=== PATIENT | female | born 1960 | race Two or more races ===

== ENCOUNTER 2018-01-03 17:38 | Inpatient (IN) | payer OTHER ==
[2018-01-03] MEDS ORDERED: morphine CARPU-JECT 4 MG/1 ML DISP.SYRIN IVPUSH ONE ×2 (17:49→18:36)
[2018-01-03] MEDS ORDERED: ALBUTEROL SO4 2.5/IPRATROPIUM 0.5 INH SOL 3 ML VIAL.NEB. NEB ONE ×2 (17:50→17:53)
[2018-01-03] MEDS ORDERED: morphine SULFATE 4 MG/ML VIAL ONE ×2 (17:53→18:38)
[2018-01-03 17:54] VITALS: BMI 26.2
[2018-01-03] MEDS ORDERED: ONDANSETRON 4 MG/2 ML VIAL IVPUSH ONE (17:55)
[2018-01-03] MEDS ORDERED: ONDANSETRON 4 MG/2 ML VIAL ONE (17:58)
--- NOTE | 2018-01-03 18:12 | PDOC ---
History of Present Illness - General History Source: Patient, Family Exam Limitations: No Limitations - History of Present Illness Initial Comments: 01/03/18 18:34 The patient is a 57-year-old female with past medical history significant for Endometrial malignant neoplasm (diagnosed 8 years ago, previous radiation esophagitis, metastasized to the lung (bronchial mass), scalp and brain), hx of DVT and PE (on Lovenox x2 daily) presents to the emergency department via EMS accompanied by family with worsening cough and chest pain. Per patient, the chest pain is located to the mid-anterior chest thats exacerbated with coughing , movement, and with deep breathing. Per daughter, the patient experienced mild relief with O2 and with 50 micrograms of IV Fentanyl, that EMS gave. The patient reports taking Oxycodone at home earlier today. Denies hemoptysis, productive cough, new leg swelling. The patient reports following up with pain management and was started on multiple forms of narcotic. Allergies: Penicillins Surgical history: JEOVANNY, right carpal tunnel release, tenosynivitis (by Dr. 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, mets to lung and brain) Cardiac Disorders: Yes (tachycardia) CVA: No COPD: No CHF: No Dementia: No Diabetes: No GI Disorders: Yes (GERD) Disorders: No HTN: No Hypercholesterolemia: No Liver Disease: No Seizures: No Thyroid Disease: No - Surgical History Abdominal Surgery: Yes (JEOVANNY) Appendectomy: No Cardiac Surgery: No Cholecystectomy: No Lung Surgery: No Neurologic Surgery: No - Suicide/Smoking/Psychosocial Hx Smoking History: Never smoked Have you smoked in the past 12 months: No Information on smoking cessation initiated: No Hx Alcohol Use: No Drug/Substance Use Hx: No Substance Use Type: None Hx Substance Use Treatment: No <Roma Watkins - Last Filed: 01/03/18 21:22> - Past Medical History Allergies/Adverse Reactions: Allergies Allergy/AdvReac Type Severity Reaction Status Date / Time Penicillins Allergy Rash Verified 01/03/18 17:54 Home Medications: Ambulatory Orders Cholecalciferol (Vitamin D3) [Vitamin D] 1,000 unit PO DAILY 12/30/13 Thiamine HCl [Vitamin B-1] 500 mg PO DAILY 12/30/13 Enoxaparin [Lovenox -] 60 mg SQ DAILY 12/22/17 Letrozole [Femara -] 2.5 mg PO DAILY 12/22/17 Pantoprazole Sodium [Protonix -] 20 mg PO DAILY 12/22/17 Benzonatate 200 mg PO TID PRN 01/03/18 Oxycodone Myristate [Xtampza ER] 9 mg PO BID 01/03/18 Review of Systems - Review of Systems Able to Perform ROS?: Yes Comments:: 01/03/18 18:37 GENERAL/CONSTITUTIONAL: No fever or chills. No weakness. HEAD, EYES, EARS, NOSE AND THROAT: No change in vision. No ear pain or discharge. No sore throat. CARDIOVASCULAR: (+) chest pain No shortness of breath. RESPIRATORY: (+) Worsening cough. No wheezing, or hemoptysis. GASTROINTESTINAL: No nausea, vomiting, diarrhea or constipation. GENITOURINARY: No dysuria, frequency, or change in urination. MUSCULOSKELETAL: No joint or muscle swelling or pain. No neck or back pain. SKIN: No rash NEUROLOGIC: No headache, vertigo, loss of consciousness, or change in strength/ sensation. ENDOCRINE: No increased thirst. No abnormal weight change. HEMATOLOGIC/LYMPHATIC: No anemia, easy bleeding, or history of blood clots. ALLERGIC/IMMUNOLOGIC: No hives or skin allergy. <Kandy Cornelius - Last Filed: 01/03/18 18:37> *Physical Exam - Vital Signs Last Vital Signs Temp Pulse Resp BP Pulse Ox 120 H 26 H 106/69 92 L 01/03/18 17:40 01/03/18 17:40 01/03/18 17:40 01/03/18 17:40 <Kandy Cornelius - Last Filed: 01/03/18 18:37> - Vital Signs Last Vital Signs Temp Pulse Resp BP Pulse Ox 120 H 26 H 106/69 92 L 01/03/18 17:40 01/03/18 17:40 01/03/18 17:40 01/03/18 17:40 <Roma Watkins - Last Filed: 01/03/18 21:22> Heart Score/ECG Review #2 ECG reviewed & interpreted by me at: 18:00 General ECG Interpretation: Sinus Rhythm, Normal Intervals, No acute ischemic changes Compared to previous ECG there are: Other (sinus tachycardia 135) <Roma Watkins - Last Filed: 01/03/18 21:22> ED Treatment Course - Medications Given in the ED: ED Medications Discontinued Medications Generic Name Dose Route Start Last Admin Trade Name Freq PRN Reason Stop Dose Admin Albuterol/Ipratropium 1 amp 01/03/18 17:50 01/03/18 18:05 Duoneb - NEB 01/03/18 17:51 1 amp ONCE ONE Administration Morphine Sulfate 4 mg 01/03/18 17:49 01/03/18 18:05 Morphine Injection - IVPUSH 01/03/18 17:50 4 mg ONCE ONE Administration Ondansetron HCl 4 mg 01/03/18 17:55 01/03/18 18:05 Zofran Injection IVPUSH 01/03/18 17:56 4 mg ONCE ONE Administration <Kandy Cornelius - Last Filed: 01/03/18 18:37> - LABORATORY CBC & Chemistry Diagram: 01/03/18 18:30 01/03/18 18:30 - Medications Given in the ED: ED Medications Discontinued Medications Generic Name Dose Route Start Last Admin Trade Name Freq PRN Reason Stop Dose Admin Albuterol/Ipratropium 1 amp 01/03/18 17:50 01/03/18 18:05 Duoneb - NEB 01/03/18 17:51 1 amp ONCE ONE Administration Morphine Sulfate 4 mg 01/03/18 17:49 01/03/18 18:05 Morphine Injection - IVPUSH 01/03/18 17:50 4 mg ONCE ONE Administration Ondansetron HCl 4 mg 01/03/18 17:55 01/03/18 18:05 Zofran Injection IVPUSH 01/03/18 17:56 4 mg ONCE ONE Administration <Roma Watkins - Last Filed: 01/03/18 21:22> Medical Decision Making - Medical Decision Making 01/03/18 18:10 57 yo F with h/o metastatic endometrial ca, (lung, bronchial/ mediastinal, scalp and head mets) pe/ dvt her with worsening cough and chest pain. pain worse with cough and deep breath. took oxy no relief at home. given fenatnyl by EMS no relief. on lovenox twice dialy for pe. on exam pt awake alert lungs clear bilaterlly poor breath sounds at bases. heart tachycardic. ext wwp. differential: postobstructive pna, pain due to known mets, worsening pe. pericardial effusion. plan bedside echo, cxr labs cultures. may require repeat cta to evaluate progression of known PE. morphine for pain control. duonebs to reliev bronchoconstriction and mucous. 01/03/18 19:35 focused ED ultrasound TTE, indication tte, h/o radiation r/o pericardial effusion four views of heart obtained, ( PSL< PSS, apical and subxiphoid) trace pericardial effusion noted. contractility preserved. no rv dilation or enlargement. mild left atrial enlargment. impressions: normal TTE, small pericardial effusion, no tamponade 01/03/18 20:07 pt with mass, possible post obstructive pna on cta, no obvious pe, possible radiation changes. will treat for post obbstructive pna, vanco and cefepime. pt states not true allergy to penecillin. has had penecillin with no reaction in the past. will admit to hospitalist. 01/03/18 20:40 <Roma Watkins - Last Filed: 01/03/18 21:22> *DC/Admit/Observation/Transfer <Kandy Cornelius - Last Filed: 01/03/18 18:37> - Discharge Dispostion Decision to Admit order: Yes <Roma Watkins - Last Filed: 01/03/18 21:22> Diagnosis at time of Disposition: Pneumonia, Endometrial malignant neoplasm - Referrals Referrals: Sheila Sen MD [Primary Care Provider] -
[2018-01-03 18:52] LABS: BASO % 0.1 % (0-2.0); EOS % 0.1 % (0-4.5); HEMATOCRIT 30.1 % (32.4-45.2); HEMOGLOBIN 10.2 GM/dL (10.7-15.3); LYMPH % 9.6 % (8-40); MCHC 33.8 g/dl (32.0-36.0); MEAN CELL VOLUME 94.6 fl (80-96); MEAN PLT VOLUME 7.9 fl (7.5-11.1); MONO % 6.8 % (3.8-10.2); NEUT % 83.4 % (42.8-82.8); PLATELET COUNT 170 K/MM3 (134-434); RBC 3.18 M/mm3 (3.60-5.2); RDW 18.3 % (11.6-15.6); WHITE BLOOD COUNT 8.6 K/mm3 (4.0-10.0)
[2018-01-03 18:56] LABS: INR 1.39 (0.83-1.09); PROTHROMBIN TIME (PATIENT) 16.4 SEC (9.7-13.0)
[2018-01-03 18:59] LABS: ACTIVATED PTT 30.7 SECONDS (25.2-36.5)
[2018-01-03 19:06] LABS: VENOUS PC02 43.3 mmHg (38-52); VENOUS PH 7.38 (7.32-7.42); VENOUS PO2 26.7 mmHg (28-48)
[2018-01-03 19:11] LABS: ALBUMIN 2.5 g/dl (3.4-5.0); ALK PHOS 93 U/L (45-117); ANION GAP 10 MMOL/L (8-16); BILIRUBIN,TOTAL 0.3 mg/dL (0.2-1); BLOOD UREA NITROGEN 4 mg/dL (7-18); CALCIUM 8.5 mg/dL (8.5-10.1); CHLORIDE 102 mmol/L (98-107); CO2 24 mmol/L (21-32); CREATININE 0.6 mg/dL (0.55-1.3); GLUCOSE,RANDOM 139 mg/dL (74-106); POTASSIUM 3.9 mmol/L (3.5-5.1); SGOT/AST 20 U/L (15-37); SGPT/ALT 22 U/L (13-61); SODIUM 136 mmol/L (136-145); TOT PROT 7.3 g/dl (6.4-8.2)
[2018-01-03] MEDS ORDERED: SODIUM CHLORIDE 0.9% 1000 ML INFUS.BAG IV ONE (19:25)
[2018-01-03] MEDS ORDERED: KETOROLAC TROMETHAMINE 15 MG/ML VIAL IVPUSH ONE (19:26)
[2018-01-03] MEDS ORDERED: VANCOMYCIN 1 GRAM (PRE-DOCKED) 1,000 MG/250 ML BAG IVPB ONE (20:05)
[2018-01-03] MEDS ORDERED: CEFEPIME HCL/D5W 1 GM/50 ML BAG IVPB ONE (20:06)
[2018-01-03] MEDS ORDERED: KETOROLAC TROMETHAMINE 15 MG/ML VIAL ONE (20:17)
--- NOTE | 2018-01-03 20:59 | PN ---
Teaching Attending Note Name of Resident: John Beebe ATTENDING PHYSICIAN STATEMENT I saw and evaluated the patient. I reviewed the resident's note and discussed the case with the resident. I agree with the resident's findings and plan as documented. SUBJECTIVE: OBJECTIVE: ASSESSMENT AND PLAN: this is a 57 y/o female patient with hx of cervical cancer with mets, s/p 6 cycles of chemo, radiation therapy to the mediastinum, scalp and brain presented with worsening shortness of breath and chest pain that is pleuritic in nature, patient was noted to have pericardial effusion on the CT scan plan: pericardial effusion: - not in tamponade physiology at this time - will consult Dr. Mendoza - Echocardiogram - avoid diuresis of the patient - keep the patient well hydrated SOB: worsening CT scan possible pneumonia vs advancement in the cancer - start the patient on broad spectrum antibiotics - Vancomycin and cefepime adjust to the renal dose - pulmonary evaulatioon blood culutes - Hx of DVT/PE - continue with enoxaparin q12hrs renal and weight based dose Pain Management hydomorphone 2mg po q6hrs morphine 2mg IVP prn q4hrs ' malignancy c/w home medication
[2018-01-03] MEDS: ENOXAPARIN NA (PORCINE) 60 MG/0.6 ML DISP.SYRIN SQ SCH ×2 (21:07→21:30)
[2018-01-03] MEDS ORDERED: PATIENT'S OWN MEDICATION (NON-FORMULARY) (Benzonatate [Benzonatate] 100 MG) PO PRN (21:20)
[2018-01-03] MEDS ORDERED: guaiFENesin/CODEINE 10 ML UNIT-DOSE CUPS PO PRN (21:26)
[2018-01-03] MEDS ORDERED: morphine CARPU-JECT 4 MG/1 ML DISP.SYRIN IVPUSH PRN (21:28)
[2018-01-03] MEDS ORDERED: ACETAMINOPHEN INJECTION 100 ML IVPB ONE (21:35)
--- NOTE | 2018-01-03 21:38 | CON.CARD ---
Cardiology Consult (text) - Consultation Consultation Note: Cardiology Consult Dictated IMP: Metastatic endometrial Ca: lung, brain Chest pain secondary to pericardial effusion, suspected malignant H/o DVT REC: 1. Prelim bedside echo without tamponade, to repeat echo in 24-48 hours 2. Telemetry 3. IV fluids 4. Analgesia 5. AC with Lovenox for DVT 6. Supplimental O2 7. ID consulted for abx guidance: consolidation on CT, possible post-obstx PNA Thank you. Will Follow.
[2018-01-03] MEDS ORDERED: ACETAMINOPHEN 1000 MG/100 ML VIAL (NON FORMULARY) IVPB ONE (21:56)
[2018-01-03] MEDS: guaiFENesin/CODEINE 5 ML UNIT-DOSE CUPS PO PRN (22:32)
[2018-01-03] MEDS: LACTOBACILLUS ACIDOPHILUS 1 TABLET PO SCH (22:32)
[2018-01-03] MEDS: SODIUM CHLORIDE 1,000 ML IV SCH (22:36)
--- NOTE | 2018-01-03 23:03 | HP ---
CHIEF COMPLAINT: Chest pain PCP: HISTORY OF PRESENT ILLNESS: Pt is a 57 y/o F with extensive medical history significant for endometrial CA with mets who presents to ED with complaint of CP. CP is mid-chest, exacerbated by lying back and coughing and is severe. Pt received diagnosis of endometrial CA 8 years ago after a leukocytoclastic rash prompted investigation. Pt underwent surgery with extensive lymph node resection. At that time, she was told XRT was not necessarily indicated, but elected to undergo 3 rounds of transvaginal XRT to be sure. In May, she developed an intractable cough, which led to further investigation. Unfortunately, extensive metastatic disease was discovered including lung, brain , and scalp lesions. She has undergone 6 rounds of chemotherapy and has suffered DVT and PE. She has also undergone brain XRT. She also has known bronchial narrowing of the RUL. She has had intractable pain and intractable coughing throughout this process necessitating the use of numerous pain medications including oxycodone and THC. She denies recent history of fever, sick contacts or travel. Pt states she is unable to lay herself flat due to coughing productive of clear phlegm. ER course was notable for: (1) 101.3F, HR 120, BP 92/55, RR 30, 97% on 2L (2) Hb 10.2, Hct 30, INR 1.30, VBG 7.38/43.3/26.7/25.1 (3) morphine 8mg, zofran 4mg, toradol 15mg vanco, cefepime, lovenox, ofirmev Recent Travel: denies PAST MEDICAL HISTORY: as above PAST SURGICAL HISTORY: as above Social History: Smoking: Alcohol: Drugs: Family History: Allergies Penicillins Allergy (Verified 01/03/18 17:54) Rash PT STATED SHE WAS TOLD SHE WAS ALLERGIC TO PENICILLIN BUT WAS GIVEN PENICILLIN ONCE 15 YEARS AGO AND TOLERATED IT. HOME MEDICATIONS: Home Medications Medication Instructions Recorded Cholecalciferol (Vitamin D3) 1,000 unit PO DAILY 12/30/13 [Vitamin D] Thiamine HCl [Vitamin B-1] 500 mg PO DAILY 12/30/13 Enoxaparin [Lovenox -] 60 mg SQ DAILY 12/22/17 Letrozole [Femara -] 2.5 mg PO DAILY 12/22/17 Pantoprazole Sodium [Protonix -] 20 mg PO DAILY 12/22/17 Benzonatate 200 mg PO TID PRN 01/03/18 Oxycodone Myristate [Xtampza ER] 9 mg PO BID 01/03/18 REVIEW OF SYSTEMS CONSTITUTIONAL: generalized weakness, malaise Absent: fever, chills, diaphoresis, , loss of appetite, weight change HEENT: Absent: rhinorrhea, nasal congestion, throat pain, throat swelling, difficulty swallowing, mouth swelling, ear pain, eye pain, visual changes CARDIOVASCULAR: chest pain Absent: , syncope, palpitations, irregular heart rate, lightheadedness, peripheral edema RESPIRATORY: cough Absent: , shortness of breath, dyspnea with exertion, orthopnea, wheezing, stridor, hemoptysis GASTROINTESTINAL: Absent: abdominal pain, abdominal distension, nausea, vomiting, diarrhea, constipation, melena, hematochezia GENITOURINARY: Absent: dysuria, frequency, urgency, hesitancy, hematuria, flank pain, genital pain MUSCULOSKELETAL: Absent: myalgia, arthralgia, joint swelling, back pain, neck pain SKIN: Absent: rash, itching, pallor HEMATOLOGIC/IMMUNOLOGIC: Absent: easy bleeding, easy bruising, lymphadenopathy, frequent infections ENDOCRINE: Absent: unexplained weight gain, unexplained weight loss, heat intolerance, cold intolerance NEUROLOGIC: Absent: headache, focal weakness or paresthesias, dizziness, unsteady gait, seizure, mental status changes, bladder or bowel incontinence PSYCHIATRIC: Absent: anxiety, depression, suicidal or homicidal ideation, hallucinations. PHYSICAL EXAMINATION Vital Signs - 24 hr 01/03/18 01/03/18 01/03/18 17:40 20:07 20:54 Temperature 101.3 F H Pulse Rate 120 H 112 H Pulse Rate [ 111 H Left] Respiratory 26 H 30 H Rate Blood Pressure 106/69 Blood Pressure 113/61 [Right Arm] O2 Sat by Pulse 92 L 97 Oximetry (%) Gen: Anxious appearing sitting upright in bed. HEENT: NCAT, hair loss 2/2 chemo, moist membranes Neck: supple, no jvd noted Cardio: rrr, distant s1s2, no mrg appreciated Pulm: clear lung bases, scattered crackles in upper lobes Abd: nondistended, soft, nontender, no masses appreciated Laboratory Results - last 24 hr 01/03/18 01/03/18 01/03/18 18:30 18:30 18:30 WBC 8.6 RBC 3.18 L Hgb 10.2 L Hct 30.1 L D MCV 94.6 MCH 32.0 D MCHC 33.8 RDW 18.3 H Plt Count 170 D MPV 7.9 Absolute Neuts (auto) 7.2 Neutrophils % 83.4 H D Lymphocytes % 9.6 D Monocytes % 6.8 Eosinophils % 0.1 D Basophils % 0.1 Nucleated RBC % 0 PT with INR 16.40 H INR 1.39 H PTT (Actin FS) 30.7 VBG pH POC VBG pCO2 POC VBG pO2 Mixed VBG HCO3 Sodium 136 Potassium 3.9 Chloride 102 Carbon Dioxide 24 Anion Gap 10 BUN 4 L Creatinine 0.6 Creat Clearance w eGFR > 60 Random Glucose 139 H Lactic Acid Calcium 8.5 Total Bilirubin 0.3 AST 20 ALT 22 Alkaline Phosphatase 93 Troponin I < 0.02 Total Protein 7.3 Albumin 2.5 L 01/03/18 01/03/18 01/03/18 18:45 18:45 18:45 WBC RBC Hgb Hct MCV MCH MCHC RDW Plt Count MPV Absolute Neuts (auto) Neutrophils % Lymphocytes % Monocytes % Eosinophils % Basophils % Nucleated RBC % PT with INR INR PTT (Actin FS) 31.3 VBG pH 7.38 POC VBG pCO2 43.3 POC VBG pO2 26.7 L Mixed VBG HCO3 25.1 H Sodium Potassium Chloride Carbon Dioxide Anion Gap BUN Creatinine Creat Clearance w eGFR Random Glucose Lactic Acid 1.6 Calcium Total Bilirubin AST ALT Alkaline Phosphatase Troponin I Total Protein Albumin ASSESSMENT/PLAN: This is a pleasant 57 y/o lady with unfortunate history of metastatic endometrial CA involving lung, brain, and scalp. She was brought to the hospital for severe chest pain. She is admitted for intractable pain and for workup of PNA and pericardial effusion. #PNA -febrile, cough, no leukocytosis, no sick contacts, no recent travel -STEVIE PNA noted on CXR and CT -received Vanc, Cefepime in ED -O2 -ID consulted f/u recs -Pulm consulted f/u recs #Pericardial effusion -noted on chest CT -bedside echo performed by ED and by cardio. No tamponade noted -Cardio on board #DVT -known from hist -c/w home lovenox 60 bid #Intractable cough -c/w home tessilon pearls -robitussin a/c #GERD -protonix #Malignancy -c/w home letrazole #Intractable pain -liberal pain medication -dilaudid 2mg q6h Prn -morphine IV 4mg q4h PRN #FEN -NS 83 -lytes wnl -reg diet #PPx -on Lovenox #Dispo -Tele John Beebe MD PGY-2 IM Visit type - Emergency Visit Emergency Visit: Yes ED Registration Date: 01/03/18 Care time: The patient presented to the Emergency Department on the above date and was hospitalized for further evaluation of their emergent condition. - New Patient This patient is new to me today: Yes Date on this admission: 01/03/18 - Critical Care Critical Care patient: No
[2018-01-04] MEDS ORDERED: morphine SULFATE 4 MG/ML VIAL IVPUSH PRN (01:21)
[2018-01-04] MEDS ORDERED: morphine SULFATE 4 MG/ML VIAL ONE (01:33)
[2018-01-04 07:37] LABS: BASO % 0.1 % (0-2.0); EOS % 0.6 % (0-4.5); HEMATOCRIT 26.1 % (32.4-45.2); LYMPH % 10.1 % (8-40); MCH 32.6 pg (25.7-33.7); MCHC 34.4 g/dl (32.0-36.0); MEAN CELL VOLUME 94.9 fl (80-96); MEAN PLT VOLUME 7.8 fl (7.5-11.1); MONO % 11.9 % (3.8-10.2); NEUT % 77.3 % (42.8-82.8); PLATELET COUNT 147 K/MM3 (134-434); RBC 2.75 M/mm3 (3.60-5.2); WHITE BLOOD COUNT 8.7 K/mm3 (4.0-10.0)
[2018-01-04] MEDS: HYDROmorphone HCL 2 MG TABLET PO PRN ×3 (08:29→21:17)
[2018-01-04 08:41] LABS: ALK PHOS 84 U/L (45-117); ANION GAP 9 MMOL/L (8-16); BILIRUBIN,TOTAL 0.3 mg/dL (0.2-1); BLOOD UREA NITROGEN 6 mg/dL (7-18); CALCIUM 8.5 mg/dL (8.5-10.1); CHLORIDE 106 mmol/L (98-107); CO2 23 mmol/L (21-32); CREATININE 0.5 mg/dL (0.55-1.3); GLUCOSE,RANDOM 101 mg/dL (74-106); MAGNESIUM 1.8 mg/dL (1.8-2.4); POTASSIUM 3.9 mmol/L (3.5-5.1); SGOT/AST 15 U/L (15-37); SGPT/ALT 17 U/L (13-61); SODIUM 138 mmol/L (136-145); TOT PROT 6.1 g/dl (6.4-8.2)
[2018-01-04] MEDS: PANTOPRAZOLE 20 MG TABLET (FP) PO SCH (09:12)
[2018-01-04] MEDS: guaiFENesin/CODEINE 5 ML UNIT-DOSE CUPS PO PRN ×2 (09:12→15:07)
[2018-01-04] MEDS: LACTOBACILLUS ACIDOPHILUS 1 TABLET PO SCH (09:12)
[2018-01-04] MEDS ORDERED: PT OWN MED DRAWER 7, Y5N ONE ×2 (09:15→09:16)
--- NOTE | 2018-01-04 09:34 | PN ---
Progress Note, Physician Chief Complaint: appears more comfortable. No chest pain or SOB Denies palpitations. - Current Medication List Current Medications: Active Medications Enoxaparin Sodium (Lovenox -) 60 mg SQ DAILY [facility] Guaifenesin/Codeine Phosphate (Robitussin Ac -) 10 ml PO Q8H PRN PRN Reason: COUGH Last Admin: 01/04/18 09:12 Dose: 10 ml Hydromorphone HCl (Dilaudid -) 2 mg PO Q6H PRN PRN Reason: PAIN LEVEL 1-5 Last Admin: 01/04/18 08:29 Dose: 2 mg Sodium Chloride (Normal Saline -) 1,000 mls @ 83 mls/hr IV ASDIR [facility] Last Admin: 01/03/18 22:36 Dose: 83 mls/hr Lactobacillus Acidophilus (Bacid -) 1 tab PO DAILY [facility] Last Admin: 01/04/18 09:12 Dose: 1 tab Letrozole (Femara -) 2.5 mg PO DAILY [facility] Morphine Sulfate (Morphine Sulfate) 4 mg IVPUSH Q4H PRN PRN Reason: PAIN LEVEL 6-10 Non-Formulary Medication (Benzonatate [Benzonatate]) 100 mg PO TID PRN PRN Reason: COUGH Pantoprazole Sodium (Protonix -) 20 mg PO DAILY [facility] Last Admin: 01/04/18 09:12 Dose: 20 mg - Objective Vital Signs: Vital Signs Temperature 98.2 F 01/04/18 05:36 Pulse Rate 95 H 01/04/18 05:36 Respiratory Rate 18 01/04/18 05:36 Blood Pressure 95/63 01/04/18 05:36 O2 Sat by Pulse Oximetry (%) 98 01/03/18 22:54 Constitutional: Yes: No Distress, Calm Eyes: Yes: Conjunctiva Clear Cardiovascular: Yes: Regular Rate and Rhythm, Other (no jvd) Respiratory: Yes: Other (decreased breath sounds at bases bilaterally.) Gastrointestinal: Yes: Soft Edema: No Neurological: Yes: Alert, Oriented Labs: CBC, BMP 01/04/18 06:30 01/04/18 06:30 INR, PTT INR 1.39 (0.83-1.09) H 01/03/18 18:30 - ....Imaging EKG: Image Reviewed (TELE: Sinus tach) Assessment/Plan IMP: Metastatic endometrial Ca: lung, brain Chest pain secondary to pericardial effusion, suspected malignant Consolidation on chest CT H/o DVT REC: 1. Prelim bedside echo without tamponade, to repeat echo in 24-48 hours 2. Telemetry 3. IV fluids 4. Analgesia 5. AC with Lovenox for DVT 6. Supplimental O2 7. ID consulted for abx guidance: consolidation on CT, possible post-obstx PNA
[2018-01-04] MEDS ORDERED: ENOXAPARIN NA (PORCINE) 60 MG/0.6 ML DISP.SYRIN SQ SCH (10:00)
--- NOTE | 2018-01-04 10:12 | PN ---
Progress Note (short form) - Note Progress Note: Subjective: reports chronci cough that has not changed with clear sputum production. No fever at home but had one in ER. reports retrosternal CP started yesterday at 1 pm and lasted till now, but better after pain meds. reports no deficits form her brain mets. denies light headedness or N/V. SOB at base line Objective: Vital Signs: Last Vital Signs Temp Pulse Resp BP Pulse Ox 98.2 F 95 H 18 95/63 98 01/04/18 05:36 01/04/18 05:36 01/04/18 05:36 01/04/18 05:36 01/03/18 22:54 Laboratory Results - last 24 hr 01/03/18 01/03/18 01/03/18 18:30 18:30 18:30 WBC 8.6 RBC 3.18 L Hgb 10.2 L Hct 30.1 L D MCV 94.6 MCH 32.0 D MCHC 33.8 RDW 18.3 H Plt Count 170 D MPV 7.9 Absolute Neuts (auto) 7.2 Neutrophils % 83.4 H D Lymphocytes % 9.6 D Monocytes % 6.8 Eosinophils % 0.1 D Basophils % 0.1 Nucleated RBC % 0 PT with INR 16.40 H INR 1.39 H PTT (Actin FS) 30.7 VBG pH POC VBG pCO2 POC VBG pO2 Mixed VBG HCO3 Sodium 136 Potassium 3.9 Chloride 102 Carbon Dioxide 24 Anion Gap 10 BUN 4 L Creatinine 0.6 Creat Clearance w eGFR > 60 Random Glucose 139 H Lactic Acid Calcium 8.5 Phosphorus Magnesium Total Bilirubin 0.3 AST 20 ALT 22 Alkaline Phosphatase 93 Troponin I < 0.02 Total Protein 7.3 Albumin 2.5 L 01/03/18 01/03/18 01/03/18 18:45 18:45 18:45 WBC RBC Hgb Hct MCV MCH MCHC RDW Plt Count MPV Absolute Neuts (auto) Neutrophils % Lymphocytes % Monocytes % Eosinophils % Basophils % Nucleated RBC % PT with INR INR PTT (Actin FS) 31.3 VBG pH 7.38 POC VBG pCO2 43.3 POC VBG pO2 26.7 L Mixed VBG HCO3 25.1 H Sodium Potassium Chloride Carbon Dioxide Anion Gap BUN Creatinine Creat Clearance w eGFR Random Glucose Lactic Acid 1.6 Calcium Phosphorus Magnesium Total Bilirubin AST ALT Alkaline Phosphatase Troponin I Total Protein Albumin 11/04/18 11/04/18 06:30 06:30 WBC 8.7 RBC 2.75 L Hgb 9.0 L Hct 26.1 L MCV 94.9 MCH 32.6 MCHC 34.4 RDW 18.0 H Plt Count 147 MPV 7.8 Absolute Neuts (auto) 6.7 Neutrophils % 77.3 Lymphocytes % 10.1 Monocytes % 11.9 H Eosinophils % 0.6 D Basophils % 0.1 Nucleated RBC % 0 PT with INR INR PTT (Actin FS) VBG pH POC VBG pCO2 POC VBG pO2 Mixed VBG HCO3 Sodium 138 Potassium 3.9 Chloride 106 Carbon Dioxide 23 Anion Gap 9 BUN 6 L Creatinine 0.5 L Creat Clearance w eGFR > 60 Random Glucose 101 Lactic Acid Calcium 8.5 Phosphorus 3.0 Magnesium 1.8 Total Bilirubin 0.3 AST 15 ALT 17 Alkaline Phosphatase 84 Troponin I Total Protein 6.1 L Albumin 2.0 L Physical Exam: NAD, pleasant and cooperative HEENT: dry MM, no JVD, no facial droop, EOMI CV: RRR, tachy, no MRG , no JVD Lungs: decreased breath sounds at L lung field half way down. otherwise clear Abd:sftt, Nt, ND , NL BS , no hepatojugular reflus Ext: no edema, no erythema Neuro: EOMI, no facial droop, tongue at mid line, round equal pupils, slight reactive to light. facial sensation NL. Strength 5/5 in upper and lower extremities proximally and distally. sensation to light touch NL. reflexes 2+ knee jerk b/l, 2+ R biceps . 1+ L biceps . Pulsus paradoxus 2. Imaging: CT image and prelim report reviewed. previous CT image reviewed. EKG Sinus tachy with poor R wave progression Assessment/Plan: Unfortunate 57 y/o lady with h/o endometrial cancer 2008, s/p hysterectomy and Rtx, Mets to brain and lung s/p brain RTx -07/18 and 7 rounds of chemo started in 08/18, h/o RLE DVT, neuropathy who presented with retrosternal CP. she was found to have pericardial effusion and PNA 1- Pericardial effusion: although tachycardic, and BP is boarderline, there is no signs of tamponade per bed side echo documentation, and Pulsus paradoxus of 2 , and no JVD. now SBP 100 . - echo tomorrow am - monitor BP and HR closely - avoid hypovolemia - pain control 2- Sepsis: CT scan with new LLL infiltrate, not present on previous CT. This could be post obstructive PNA. received cefepime and vanco last night - will d/w ID [email or web address] + vanco to cover anerobes with suspicion of post obstructive PNA - blood cx - urine Ag - send sputum cx - IVF 3- Endometrial cancer s/p hysterectomy, with Mets to brain and lung. - cont hormonal therapy - f/u with onc as out pt 4- H/O RLE DVT : change her lovenox to BID 5- Home meds confirmed with her and reconciled in [facility] Visit type - Emergency Visit Emergency Visit: Yes ED Registration Date: 01/03/18 Care time: The patient presented to the Emergency Department on the above date and was hospitalized for further evaluation of their emergent condition. - New Patient This patient is new to me today: Yes Date on this admission: 01/04/18 - Critical Care Critical Care patient: No - Discharge Referral Referred to [facility] Med P.C.: No
[2018-01-04] MEDS ORDERED: VANCOMYCIN 1 GRAM (PRE-DOCKED) 1,000 MG/250 ML BAG IVPB ONE (10:15)
[2018-01-04] MEDS ORDERED: CEFEPIME 2 GM in DEXTROSE 5%-WATER 100 ML IVPB ONE (10:28)
[2018-01-04] MEDS: LETROZOLE 2.5 MG TABLET (FP) PO SCH (11:22)
--- NOTE | 2018-01-04 11:44 | EKG ---
Test Reason : Blood Pressure : / mmHG Vent. Rate : 135 BPM Atrial Rate : 135 BPM P-R Int : 124 ms QRS Dur : 072 ms QT Int : 290 ms P-R-T Axes : 065 -22 052 degrees QTc Int : 435 ms SINUS TACHYCARDIA POSSIBLE LEFT ATRIAL ENLARGEMENT WHEN COMPARED WITH ECG OF 26-NOV-2008 08:56, VENT. RATE HAS INCREASED BY 64 BPM Confirmed by ROZINA AYOUB MD ([id number]) on 01/04/2018 11:43:50 AM Referred By: Confirmed By:ROZINA AYOUB MD
--- NOTE | 2018-01-04 12:03 | CONS ---
DATE OF CONSULTATION: 01/03/2018 The consultation is requested by Dr. Rea. The patient is a 57-year-old female with past medical history of metastatic endometrial cancer with metastases to the lungs, scalp, and brain, status post chemotherapy (last in December), and radiation therapy. She also has a history of DVT and is maintained on weight-based Lovenox b.i.d. She presented to the emergency department today accompanied by her family for worsening cough and chest pain. The chest discomfort is located in the anterior precordium and is worse with positional changes. She has shortness of breath and a persistent cough productive of sputum. A CTA was performed, which was negative for pulmonary embolism but did show consolidations and metastases and possible post-obstructive pneumonia. In addition, there was a pericardial effusion noted on the CT scan, which was new. A bedside echocardiogram was performed in the emergency department, which showed a small pericardial effusion with no evidence of RV collapse and no evidence of tamponade. The patient was given oxygen supplementation and IV fentanyl, which helped relieve some of her discomfort. She is and examined in the emergency department, currently in no acute distress. Past medical history is as above. Allergies to PENICILLIN. Current medications include Lovenox 60 mg subcutaneous daily, Robitussin AC 10 mL p.o. q.8 p.r.n., Dilaudid 2 mg p.o. q.6 p.r.n., letrozole 2.5 mg p.o. daily, morphine sulfate 4 mg IV q.4, Protonix 20 mg p.o. daily. FAMILY HISTORY: Noncontributory. SOCIAL HISTORY: Nonsmoker. PHYSICAL EXAMINATION: Vital Signs: Pulse 120, regular. Blood pressure 113/61. O2 saturation 92% on room air, 97% on 2 L. HEENT: She is anicteric. There is no JVD visible with the patient sitting at 45 degrees. Decreased breath sounds and scattered rhonchi. Heart: S1, S2, tachy. No murmurs, rubs or gallops. Abdomen: Soft. Extremities: No edema. ECG showed sinus tachycardia at 120 beats per minute with nonspecific ST changes. LABORATORY DATA: White count 8.6, hematocrit 30.1, platelets 170. INR 1.39. Sodium 136, potassium 3.9, BUN 4, creatinine 0.6. LFTs are normal. CK and troponin negative x1 set. The CT scan was reviewed with Dr. Rea, showing multiple areas of consolidation throughout the lungs as well as a small to moderate pericardial effusion. No pulmonary embolism. IMPRESSION: 1. Metastatic endometrial cancer to the lung and brain. 2. Chest pain secondary to pericardial effusion, suspected to be malignant, and possible post-obstructive pneumonia. 3. History of deep vein thrombosis. RECOMMENDATIONS: 1. Preliminary bedside echo showed no evidence of tamponade; to repeat an echocardiogram in 24 to 48 hours. 2. Telemetry. 3. IV fluids. 4. Analgesia. 5. Anticoagulation with Lovenox for her previous deep vein thrombosis. 6. Supplemental O2. 7. ID consulted for antibiotic guidance for the consolidation on CT representing a possible post-obstructive pneumonia. Thank you for the consultation. Will follow. ROZINA AYOUB M.D. JOSÉ [id number]
[2018-01-04] MEDS: ENOXAPARIN NA (PORCINE) 60 MG/0.6 ML DISP.SYRIN SQ SCH ×2 (12:06→21:15)
--- NOTE | 2018-01-04 12:17 | CON.ID ---
Consult Consult Specialty:: infectious disease Referred by:: hospitalist Reason for Consultation:: fever, cough, chest pain - History of Present Illness Chief Complaint: cough and chest pain History of Present Illness: 57 yo female with metastatic endometrial cancer with mets to lung and brain. She has had chronic cough productive of white sputum since June at which time she had a chest ct and was found to have a STEVIE lung mass and mediastinal mass. SHe also had scalp mets. SHe is s/p RT to the chest and brain. SHe is s/p 6 rounds of chemo completed early December no port has had intractable persistent cough with white sputum production was not aware she had fever no hemoptysis no recent antibiotics no prior pneumonia has been hospitalized once or twice at [facility] during her chemo - History Source History Provided By: Patient, Family Member, Medical Record Limitations to Obtaining History: No Limitations - Past Medical History Pulmonary: Yes: Pulmonary Embolus (DVT) Heme/Onc: Yes: Cancer (endometrial cancer) - Past Surgical History Past Surgical History: Yes: Hysterectomy (johnna/bso 8 years ago) Additional Surgical History: right carpal tunnel - Alcohol/Substance Use Hx Alcohol Use: No - Smoking History Smoking history: Never smoked Have you smoked in the past 12 months: No - Social History Usual Living Arrangement: With Spouse ADL: Independent History of Recent Travel: No Home Medications - Allergies Allergies/Adverse Reactions: Allergies Allergy/AdvReac Type Severity Reaction Status Date / Time Penicillins Allergy Rash Verified 01/03/18 17:54 - Home Medications Home Medications: Ambulatory Orders Enoxaparin [Lovenox -] 60 mg SQ BID 12/22/17 Letrozole [Femara -] 2.5 mg PO DAILY 12/22/17 Pantoprazole Sodium [Protonix -] 20 mg PO DAILY 12/22/17 Benzonatate 100 mg PO BID 01/03/18 Oxycodone HCl 5 mg PO Q4H PRN 01/04/18 Family Disease History - Family Disease History Family History: Denies Review of Systems - Review of Systems Constitutional: reports: No Symptoms. denies: Fever Eyes: reports: No Symptoms HENT: denies: Difficult Swallowing Neck: reports: No Symptoms Cardiovascular: reports: Chest Pain Respiratory: reports: Cough, SOB Gastrointestinal: reports: No Symptoms Genitourinary: reports: No Symptoms Physical Exam Vital Signs: Vital Signs Temperature 98.2 F 01/04/18 05:36 Pulse Rate 95 H 11/04/18 05:36 Respiratory Rate 18 01/04/18 05:36 Blood Pressure 95/63 01/04/18 05:36 O2 Sat by Pulse Oximetry (%) 98 01/03/18 22:54 Constitutional: Yes: Well Nourished, Anxious, Mild Distress Eyes: Yes: Conjunctiva Clear HENT: No: Thrush Neck: Yes: Supple, Trachea Midline Cardiovascular: Yes: Regular Rate and Rhythm Respiratory: Yes: Diminished (at bases, chronic cough every several minutes), Rhonchi Gastrointestinal: Yes: Normal Bowel Sounds, Soft ...Rectal Exam: Yes: Deferred Extremities: Yes: WNL Edema: No Psychiatric: Yes: Alert, Oriented Labs: CBC, BMP 01/04/18 06:30 01/04/18 06:30 Imaging - Results Chest X-ray: Report Reviewed, Image Reviewed Cat Scan: Image Reviewed (report pending) Problem List - Problems (1) Pneumonia Code(s): J18.9 - PNEUMONIA, UNSPECIFIED ORGANISM (2) Pericardial effusion Code(s): I31.3 - PERICARDIAL EFFUSION (NONINFLAMMATORY) (3) Endometrial malignant neoplasm Code(s): C54.1 - MALIGNANT NEOPLASM OF ENDOMETRIUM (4) Penicillin allergy Code(s): Z88.0 - ALLERGY STATUS TO PENICILLIN Assessment/Plan possible post obstructive pneumonia continue vancomycin and cefepime f/u cultures f/u legionella antigen intractable cough pericardial effusion- for repeat echo in am metastatic endometrial cancer
--- NOTE | 2018-01-04 14:06 | CON.PULM ---
Consult Consult Specialty:: PULM/CCM Referred by:: Hospitalist Reason for Consultation:: PNA - History of Present Illness Chief Complaint: CP History of Present Illness: 57 F, Suspected limited stage Endometrial cancer diagnosed in 2008. Surgical management with 3 sessions of transvaginal RT. Recurrent diffuse metastatic disease found 05/2017 (Lung, mediastinum, scalp, brain x 10). S/P Chemo x 6, brain RT, scalp RT, thoracic RT. Course complicated by RLE DVT and likely PE, recurrent prolonged neutropenia, and radiation esophagitis. Admitted via the ER due to severe CP 12/10. CTA: no PE / mediastinal mass / moderate pericardial effusion / new STEVIE diffuse/ dense infiltrates. No travel history or sick contacts. No hemoptysis. No fever or chills. - History Source History Provided By: Patient Limitations to Obtaining History: No Limitations - Past Medical History Cardio/Vascular: Yes: Deep Vein Thrombosis Pulmonary: Yes: Pulmonary Embolus (DVT) - Past Surgical History Past Surgical History: Yes: Hysterectomy (johnna/bso 8 years ago) Additional Surgical History: right carpal tunnel - Alcohol/Substance Use Hx Alcohol Use: No - Smoking History Smoking history: Never smoked Have you smoked in the past 12 months: No - Social History Usual Living Arrangement: With Spouse ADL: Independent History of Recent Travel: No Home Medications - Allergies Allergies/Adverse Reactions: Allergies Allergy/AdvReac Type Severity Reaction Status Date / Time Penicillins Allergy Rash Verified 01/03/18 17:54 - Home Medications Home Medications: Ambulatory Orders Enoxaparin [Lovenox -] 60 mg SQ BID 12/22/17 Letrozole [Femara -] 2.5 mg PO DAILY 12/22/17 Pantoprazole Sodium [Protonix -] 20 mg PO DAILY 12/22/17 Benzonatate 100 mg PO BID 01/03/18 Oxycodone HCl 5 mg PO Q4H PRN 01/04/18 Review of Systems - Review of Systems Constitutional: reports: Loss of Appetite, Malaise, Unintentional Wgt. Loss, Weakness. denies: Chills, Fever, Night Sweats Eyes: reports: No Symptoms HENT: reports: No Symptoms Neck: reports: Pain on Movement, Stiffness, Tenderness Cardiovascular: reports: Chest Pain, Palpitations, Shortness of Breath. denies : Edema Respiratory: reports: Cough, SOB, SOB on Exertion. denies: Hemoptysis, Orthopnea, Snoring, Wheezing Gastrointestinal: reports: No Symptoms Genitourinary: reports: No Symptoms Breasts: reports: No Symptoms Reported Musculoskeletal: reports: Back Pain, Decreased ROM, Extremity Pain, Joint Pain, Muscle Pain Integumentary: reports: No Symptoms Neurological: reports: Incoordination, Numbness, Parasthesia, Unsteady Gait. denies: Seizure, Syncope Endocrine: reports: No Symptoms Hematology/Lymphatic: reports: No Symptoms Psychiatric: reports: Altered Sleep Pattern Physical Exam Vital Sings: Vital Signs Temperature 97.8 F 01/04/18 10:00 Pulse Rate 103 H 01/04/18 13:09 Respiratory Rate 18 01/04/18 13:09 Blood Pressure 114/68 01/04/18 13:09 O2 Sat by Pulse Oximetry (%) 98 01/04/18 09:00 Constitutional: Yes: Mild Distress, Thin Eyes: Yes: Conjunctiva Clear, EOM Intact HENT: Yes: Atraumatic, Normocephalic Neck: Yes: Supple, Trachea Midline Cardiovascular: Yes: Tachycardia Respiratory: Yes: Cough, Diminished, On Nasal O2, Rhonchi, SOB, SOB on Exertion , Tachypnea. No: Accessory Muscle Use, Rales, Stridor, Wheezes ...Inspection: Yes: WNL ...Clubbing: No Gastrointestinal: Yes: Normal Bowel Sounds, Soft Renal/: Yes: WNL Musculoskeletal: Yes: Muscle Weakness Extremities: Yes: WNL Edema: No Peripheral Pulses WNL: Yes Integumentary: Yes: WNL Neurological: Yes: Alert, Oriented ...Motor Strength: WNL Psychiatric: Yes: WNL, Alert, Oriented Labs: CBC, BMP 01/04/18 06:30 01/04/18 06:30 Imaging - Results Chest X-ray: Report Reviewed, Image Reviewed Cat Scan: Report Reviewed, Image Reviewed Problem List - Problems (1) Pericardial effusion Code(s): I31.3 - PERICARDIAL EFFUSION (NONINFLAMMATORY) (2) Pneumonia Code(s): J18.9 - PNEUMONIA, UNSPECIFIED ORGANISM (3) Endometrial malignant neoplasm Code(s): C54.1 - MALIGNANT NEOPLASM OF ENDOMETRIUM (4) Cancer associated pain Code(s): G89.3 - NEOPLASM RELATED PAIN (ACUTE) (CHRONIC) (5) Lung metastases Code(s): C78.00 - SECONDARY MALIGNANT NEOPLASM OF UNSPECIFIED LUNG (6) Tachycardia Code(s): R00.0 - TACHYCARDIA, UNSPECIFIED Assessment/Plan Broad ABX per ID O2 as needed Lovenox 60mg BID Check sputum Check urinary antigen Pain control ECHO Cardiology consult noted Cardiac Telemetry monitoring Dr Rea
[2018-01-04] MEDS: VANCOMYCIN 1 GRAM (PRE-DOCKED) 1,000 MG/250 ML BAG IVPB SCH (14:25)
[2018-01-04] MEDS ORDERED: DEXTROSE 5%-WATER 100 ML IVPB ONE (16:01)
[2018-01-04] MEDS ORDERED: CEFEPIME HCL 1 GM VIAL (RESTRICTED TO ID) ONE (16:01)
[2018-01-04] MEDS ORDERED: ONDANSETRON 4 MG/2 ML VIAL IVPUSH ONE (16:13)
[2018-01-04] MEDS: CEFEPIME 1 GM in DEXTROSE 5%-WATER 100 ML IVPB SCH (16:59)
[2018-01-04] MEDS: SODIUM CHLORIDE 1,000 ML IV SCH (22:15)
[2018-01-05] MEDS ORDERED: DEXTROSE 5%-WATER 100 ML IVPB ONE ×3 (00:25→17:31)
[2018-01-05] MEDS ORDERED: CEFEPIME HCL 1 GM VIAL (RESTRICTED TO ID) ONE ×3 (00:25→17:31)
[2018-01-05] MEDS ORDERED: PT OWN MED DRAWER 7, Y5N ONE ×4 (00:27→23:53)
[2018-01-05] MEDS: VANCOMYCIN 1 GRAM (PRE-DOCKED) 1,000 MG/250 ML BAG IVPB SCH ×2 (01:05→13:03)
[2018-01-05] MEDS: guaiFENesin/CODEINE 5 ML UNIT-DOSE CUPS PO PRN ×2 (02:29→10:29)
[2018-01-05] MEDS: CEFEPIME 1 GM in DEXTROSE 5%-WATER 100 ML IVPB SCH ×3 (02:30→17:43)
[2018-01-05] MEDS: HYDROmorphone HCL 2 MG TABLET PO PRN ×3 (05:42→20:50)
[2018-01-05 07:25] LABS: BASO % 0.6 % (0-2.0); EOS % 1.4 % (0-4.5); HEMATOCRIT 26.3 % (32.4-45.2); HEMOGLOBIN 8.9 GM/dL (10.7-15.3); LYMPH % 15.9 % (8-40); MEAN CELL VOLUME 94.1 fl (80-96); MONO % 11.5 % (3.8-10.2); NEUT % 70.6 % (42.8-82.8); PLATELET COUNT 145 K/MM3 (134-434); RBC 2.79 M/mm3 (3.60-5.2); RDW 17.9 % (11.6-15.6); WHITE BLOOD COUNT 6.1 K/mm3 (4.0-10.0)
[2018-01-05 07:43] LABS: ANION GAP 8 MMOL/L (8-16); BLOOD UREA NITROGEN 4 mg/dL (7-18); CALCIUM 8.5 mg/dL (8.5-10.1); CHLORIDE 106 mmol/L (98-107); CO2 25 mmol/L (21-32); CREATININE 0.4 mg/dL (0.55-1.3); GLUCOSE,RANDOM 90 mg/dL (74-106); MAGNESIUM 1.8 mg/dL (1.8-2.4); PHOSPHOROUS 2.7 mg/dL (2.5-4.9); POTASSIUM 3.4 mmol/L (3.5-5.1); SODIUM 139 mmol/L (136-145)
--- NOTE | 2018-01-05 09:10 | PN ---
Progress Note, Physician Chief Complaint: TELE: NSR and sinus tach Full bedside echo performed: Normal LV fxn Small pericardial effusion, with fibrinous component suggestive of chronicity No evidence of tamponade- no RA or RV collapse. - Current Medication List Current Medications: Active Medications Enoxaparin Sodium (Lovenox -) 60 mg SQ BID [facility] Last Admin: 01/04/18 21:15 Dose: 60 mg Guaifenesin/Codeine Phosphate (Robitussin Ac -) 10 ml PO Q8H PRN PRN Reason: COUGH Last Admin: 01/05/18 02:29 Dose: 10 ml Hydromorphone HCl (Dilaudid -) 2 mg PO Q6H PRN PRN Reason: PAIN LEVEL 1-5 Last Admin: 01/05/18 05:42 Dose: 2 mg Sodium Chloride (Normal Saline -) 1,000 mls @ 83 mls/hr IV ASDIR [facility] Last Admin: 01/04/18 22:15 Dose: Not Given Vancomycin HCl (Vancomycin (Pre-Docked)) 1,000 mg in 250 mls @ 166.667 mls/hr IVPB Q12H STEPH[facility]; Protocol Last Admin: 01/05/18 01:05 Dose: 166.667 mls/hr Cefepime HCl 1 gm/ Dextrose 100 mls @ 200 mls/hr IVPB Q8H-IV STEPHENIE; Protocol Last Admin: 01/05/18 02:30 Dose: 200 mls/hr Lactobacillus Acidophilus (Bacid -) 1 tab PO DAILY [facility] Last Admin: 01/04/18 09:12 Dose: 1 tab Letrozole (Femara -) 2.5 mg PO DAILY [facility] Last Admin: 01/04/18 11:22 Dose: 2.5 mg Morphine Sulfate (Morphine Sulfate) 4 mg IVPUSH Q4H PRN PRN Reason: PAIN LEVEL 6-10 Non-Formulary Medication (Patient's Own Med) 1 each PO BID [facility] Last Admin: 01/04/18 21:15 Dose: 1 each Pantoprazole Sodium (Protonix -) 20 mg PO DAILY [facility] Last Admin: 01/04/18 09:12 Dose: 20 mg - Objective Vital Signs: Vital Signs Temperature 98.2 F 01/05/18 06:00 Pulse Rate 104 H 01/05/18 06:00 Respiratory Rate 18 01/05/18 06:00 Blood Pressure 105/55 L 01/05/18 06:00 O2 Sat by Pulse Oximetry (%) 99 01/04/18 21:00 Constitutional: Yes: Calm Eyes: Yes: Conjunctiva Clear Cardiovascular: Yes: Regular Rate and Rhythm Respiratory: Yes: CTA Bilaterally Gastrointestinal: Yes: Soft Edema: No Neurological: Yes: Alert, Oriented ...Motor Strength: WNL Labs: CBC, BMP 01/05/18 05:50 01/05/18 05:50 INR, PTT INR 1.39 (0.83-1.09) H 01/03/18 18:30 - ....Imaging EKG: Image Reviewed Assessment/Plan IMP: Metastatic endometrial Ca: lung, brain Chest pain secondary to pericardial effusion, suspected malignant Consolidation on chest CT H/o DVT REC: 1. Small fibrinous effusion with no evidence of tamponade. Will start colchicine , hold NSAIDS as she has severe gastritis and esophagitis from prior XRT 2. Telemetry 3. IV fluids 4. Analgesia 5. AC with Lovenox for DVT 6. Supplimental O2 7. ID consulted for abx guidance: consolidation on CT, possible post-obstx PNA
[2018-01-05] MEDS: PANTOPRAZOLE 20 MG TABLET (FP) PO SCH (09:13)
[2018-01-05] MEDS: ENOXAPARIN NA (PORCINE) 60 MG/0.6 ML DISP.SYRIN SQ SCH ×2 (09:14→21:02)
[2018-01-05] MEDS: LACTOBACILLUS ACIDOPHILUS 1 TABLET PO SCH (09:14)
--- NOTE | 2018-01-05 09:24 | PN ---
Progress Note, Physician Chief Complaint: AWAKE ALERT FAMILY BEDSIDE EVENTS AND NOTES REVIEWED PATIENT IS WEAK AND LETHARGIC - Current Medication List Current Medications: Active Medications Colchicine (Colcrys -) 0.6 mg PO BID [facility] Enoxaparin Sodium (Lovenox -) 60 mg SQ BID [facility] Last Admin: 01/05/18 09:14 Dose: 60 mg Guaifenesin/Codeine Phosphate (Robitussin Ac -) 10 ml PO Q8H PRN PRN Reason: COUGH Last Admin: 01/05/18 02:29 Dose: 10 ml Hydromorphone HCl (Dilaudid -) 2 mg PO Q6H PRN PRN Reason: PAIN LEVEL 1-5 Last Admin: 01/05/18 05:42 Dose: 2 mg Sodium Chloride (Normal Saline -) 1,000 mls @ 83 mls/hr IV ASDIR [facility] Last Admin: 01/04/18 22:15 Dose: Not Given Vancomycin HCl (Vancomycin (Pre-Docked)) 1,000 mg in 250 mls @ 166.667 mls/hr IVPB Q12H [facility]; Protocol Last Admin: 01/05/18 01:05 Dose: 166.667 mls/hr Cefepime HCl 1 gm/ Dextrose 100 mls @ 200 mls/hr IVPB Q8H-IV [facility]; Protocol Last Admin: 01/05/18 09:13 Dose: 200 mls/hr Lactobacillus Acidophilus (Bacid -) 1 tab PO DAILY [facility] Last Admin: 01/05/18 09:14 Dose: 1 tab Letrozole (Femara -) 2.5 mg PO DAILY [facility] Last Admin: 01/04/18 11:22 Dose: 2.5 mg Morphine Sulfate (Morphine Sulfate) 4 mg IVPUSH Q4H PRN PRN Reason: PAIN LEVEL 6-10 Non-Formulary Medication (Patient's Own Med) 1 each PO BID [facility] Last Admin: 01/04/18 21:15 Dose: 1 each Pantoprazole Sodium (Protonix -) 20 mg PO DAILY [facility] Last Admin: 01/05/18 09:13 Dose: 20 mg Potassium Chloride (K-Dur -) 10 meq PO ONCE ONE Stop: 01/05/18 09:21 - Objective Vital Signs: Vital Signs Temperature 98.2 F 01/05/18 06:00 Pulse Rate 104 H 01/05/18 06:00 Respiratory Rate 18 01/05/18 06:00 Blood Pressure 105/55 L 01/05/18 06:00 O2 Sat by Pulse Oximetry (%) 99 01/04/18 21:00 Constitutional: Yes: Mild Distress Eyes: Yes: WNL HENT: Yes: WNL Neck: Yes: WNL Cardiovascular: Yes: Regular Rate and Rhythm Respiratory: Yes: On Nasal O2, Rhonchi Gastrointestinal: Yes: Soft Genitourinary: Yes: WNL Musculoskeletal: Yes: Muscle Pain, Muscle Weakness Extremities: Yes: WNL Edema: No Peripheral Pulses WNL: Yes Integumentary: Yes: WNL Wound/Incision: Yes: Clean/Dry Neurological: Yes: Pre-Existing Deficit ...Motor Strength: LLE, RLE Psychiatric: Yes: WNL Labs: CBC, BMP 01/05/18 05:50 01/05/18 05:50 INR, PTT INR 1.39 (0.83-1.09) H 01/03/18 18:30 Problem List - Problems (1) Pericardial effusion Code(s): I31.3 - PERICARDIAL EFFUSION (NONINFLAMMATORY) (2) Pneumonia Code(s): J18.9 - PNEUMONIA, UNSPECIFIED ORGANISM (3) Endometrial malignant neoplasm Code(s): C54.1 - MALIGNANT NEOPLASM OF ENDOMETRIUM (4) Cancer associated pain Code(s): G89.3 - NEOPLASM RELATED PAIN (ACUTE) (CHRONIC) (5) Lung metastases Code(s): C78.00 - SECONDARY MALIGNANT NEOPLASM OF UNSPECIFIED LUNG Assessment/Plan CONTROL IV ABX NEBS 02 SUPPORT OOB TO CHAIR DVT PROPHYLAXIS NUTRITIONAL SUPPLEMENTS WITH DIETARY CONSULT ORDERED INCENTIVE SPIROMETRY STOOL SOFTENERS
[2018-01-05] MEDS ORDERED: MAGNESIUM HYDROX 2400MG/30ML ORAL SUSPENSION 30 ML CUP PO ONE (09:45)
[2018-01-05] MEDS ORDERED: POTASSIUM CHLORIDE TABS 10 MEQ TABLET.ER (FP) PO ONE (10:00)
--- NOTE | 2018-01-05 10:20 | ECHO ---
Name: SYVLIE CEE Exam:Adult Echocardiogram Study Date: 01/05/2018 08:09 AM Age: 57 yrs Reason For Study: r/o pericardial effusion Height: 59 in Weight: 130 lb BSA: 1.5 m2 MMode/2D Measurements & Calculations IVSd: 0.57 cm Ao root diam: 3.4 cm LVIDd: 4.6 cm LA dimension: 3.4 cm LVIDs: 3.0 cm ACS: 1.7 cm LVPWd: 0.68 cm IVSs: 1.0 cm LVPWs: 1.1 cm EDV(Teich): 96.5 ml ESV(Teich): 34.2 ml Doppler Measurements & Calculations MV E max josé: 61.7 cm/sec Ao V2 max: 102.6 cm/sec MV A max josé: 64.2 cm/sec Ao max P.2 mmHg MV E/A: 0.96 Ao V2 mean: 79.1 cm/sec Ao mean P.7 mmHg Ao V2 VTI: 16.9 cm TR max josé: 223.6 cm/sec Med Peak E' José: 5.8 cm/sec TR max P.1 mmHg Med E/e': 10.5 Lat Peak E' José: 7.9 cm/sec Lat E/e': 7.8 Procedure A complete two-dimensional transthoracic echocardiogram was performed (2D, M-mode, Doppler and color flow Doppler). Technically limited study. Left Ventricle The left ventricle is normal in size. Left ventricular systolic function is normal. Ejection Fraction = 55- 60%. TDI reveals impaired relaxation with normal filling pressure (E/E' 10). No regional wall motion abnormalities noted. Right Ventricle The right ventricle is normal size. The right ventricular systolic function is normal. Atria The left atrial size is normal. Right atrial size is normal. Mitral Valve The mitral valve is normal in structure and function. There is mild mitral regurgitation. Tricuspid Valve The tricuspid valve is normal in structure and function. No tricuspid regurgitation. Aortic Valve The aortic valve is normal in structure and function. No aortic regurgitation is present. Pulmonic Valve The pulmonic valve is not well visualized. Great Vessels The aortic root is normal size. Pericardium/Pleura Small pericardial effusion (<1cm). There are no echocardiographic indications of cardiac tamponade. T here is a pleural effusion present. Interpretation Summary Technically limited study The left ventricle is normal in size. Left ventricular systolic function is normal. No regional wall motion abnormalities noted. Ejection Fraction = 55-60%. TDI reveals impaired relaxation with normal filling pressure (E/E' 10) The right ventricular systolic function is normal. The left atrial size is normal. Right atrial size is normal. There is mild mitral regurgitation. Small pericardial effusion (<1cm) There are no echocardiographic indications of cardiac tamponade. There is a pleural effusion present. Previous study is not available for comparison Jayant Grey MD 01/05/2018 10:19 AM
[2018-01-05] MEDS: COLCHICINE 0.6 MG TABLET (FP) PO SCH ×2 (10:29→21:01)
[2018-01-05] MEDS: LETROZOLE 2.5 MG TABLET (FP) PO SCH (10:29)
[2018-01-05] MEDS: POLYETHYLENE GLYCOL 3350 119 GM BTL PO SCH (10:30)
--- NOTE | 2018-01-05 12:44 | PN ---
Progress Note (short form) - Note Progress Note: PULMONARY Still with nonproductive cough. No further fevers. Vital Signs Period Temp Pulse Resp BP Sys/Alexandra Pulse Ox Last 24 Hr 98.1 F-98.9 F 90-104 18-20 103-152/55-70 98-99 Gen: NAD in chair Heart: RRR Lung: decreased breath sounds at the bases Abd: soft, nontender Ext: distal edema CBC, BMP 01/05/18 05:50 01/05/18 05:50 Active Medications Colchicine (Colcrys -) 0.6 mg PO BID [facility] Last Admin: 01/05/18 10:29 Dose: 0.6 mg Enoxaparin Sodium (Lovenox -) 60 mg SQ BID [facility] Last Admin: 01/05/18 09:14 Dose: 60 mg Guaifenesin/Codeine Phosphate (Robitussin Ac -) 10 ml PO Q8H PRN PRN Reason: COUGH Last Admin: 01/05/18 10:29 Dose: 10 ml Hydromorphone HCl (Dilaudid -) 2 mg PO Q6H PRN PRN Reason: PAIN LEVEL 1-5 Last Admin: 01/05/18 05:42 Dose: 2 mg Sodium Chloride (Normal Saline -) 1,000 mls @ 83 mls/hr IV ASDIR [facility] Last Admin: 01/04/18 22:15 Dose: Not Given Vancomycin HCl (Vancomycin (Pre-Docked)) 1,000 mg in 250 mls @ 166.667 mls/hr IVPB Q12H [facility]; Protocol Last Admin: 01/05/18 01:05 Dose: 166.667 mls/hr Cefepime HCl 1 gm/ Dextrose 100 mls @ 200 mls/hr IVPB Q8H-IV [facility]; Protocol Last Admin: 01/05/18 09:13 Dose: 200 mls/hr Lactobacillus Acidophilus (Bacid -) 1 tab PO DAILY [facility] Last Admin: 01/05/18 09:14 Dose: 1 tab Letrozole (Femara -) 2.5 mg PO DAILY [facility] Last Admin: 01/05/18 10:29 Dose: 2.5 mg Morphine Sulfate (Morphine Sulfate) 4 mg IVPUSH Q4H PRN PRN Reason: PAIN LEVEL 6-10 Non-Formulary Medication (Patient's Own Med) 1 each PO BID [facility] Last Admin: 01/05/18 10:30 Dose: 1 each Pantoprazole Sodium (Protonix -) 20 mg PO DAILY [facility] Last Admin: 01/05/18 09:13 Dose: 20 mg Polyethylene Glycol (Miralax (For Daily Use) -) 17 gm PO DAILY [facility] Last Admin: 01/05/18 10:30 Dose: 17 grams Senna (Senna -) 1 tab PO [facility] A/P Pneumonia - r/o Post obstructive Metastatic Endometrial Cancer to lung, brain Pericardial Effusion h/o DVT - continue antibiotics - f/u cultures - pain control - O2 as needed - continue anticoagulation
--- NOTE | 2018-01-05 16:08 | PN ---
Progress Note (short form) - Note Progress Note: feels the same no more fevers still with cough repeat echo- small pericardial effusion Vital Signs Period Temp Pulse Resp BP Sys/Alexandra Pulse Ox Last 24 Hr 98.1 F-98.9 F 90-105 18-19 105-152/55-96 98-99 cor-rrr lungs scattered rhonchi abd soft,nt ext no edema CBC, BMP 01/05/18 05:50 01/05/18 05:50 Microbiology 01/04/18 12:05 Sputum - Expectorated Gram Stain - Final 01/04/18 12:05 Sputum - Expectorated Sputum Culture - Preliminary NORMAL RESPIRATORY TERENCE 01/03/18 18:30 Blood - Peripheral Venous Blood Culture - Preliminary NO GROWTH OBTAINED AFTER 24 HOURS, INCUBATION TO CONTINUE FOR 4 DAYS. 01/03/18 18:30 Blood - Peripheral Venous Blood Culture - Preliminary NO GROWTH OBTAINED AFTER 24 HOURS, INCUBATION TO CONTINUE FOR 4 DAYS. 01/04/18 12:05 Urine - Urine Clean Catch Legionella Antigen - Final 01/04/18 12:05 Urine - Urine Clean Catch Streptococcus pneumoniae Antigen ( M - Final Current Medications Colchicine (Colcrys -) 0.6 mg PO BID [facility] Last Admin: 01/05/18 10:29 Dose: 0.6 mg Enoxaparin Sodium (Lovenox -) 60 mg SQ BID [facility] Last Admin: 01/05/18 09:14 Dose: 60 mg Guaifenesin/Codeine Phosphate (Robitussin Ac -) 10 ml PO Q8H PRN PRN Reason: COUGH Last Admin: 01/05/18 10:29 Dose: 10 ml Hydromorphone HCl (Dilaudid -) 2 mg PO Q6H PRN PRN Reason: PAIN LEVEL 1-5 Last Admin: 01/05/18 14:22 Dose: 2 mg Sodium Chloride (Normal Saline -) 1,000 mls @ 83 mls/hr IV ASDIR [facility] Last Admin: 01/04/18 22:15 Dose: Not Given Vancomycin HCl (Vancomycin (Pre-Docked)) 1,000 mg in 250 mls @ 166.667 mls/hr IVPB Q12H [facility]; Protocol Last Admin: 01/05/18 13:03 Dose: 166.667 mls/hr Cefepime HCl 1 gm/ Dextrose 100 mls @ 200 mls/hr IVPB Q8H-IV STE[facility]ENIE; Protocol Last Admin: 01/05/18 09:13 Dose: 200 mls/hr Lactobacillus Acidophilus (Bacid -) 1 tab PO DAILY [facility] Last Admin: 01/05/18 09:14 Dose: 1 tab Letrozole (Femara -) 2.5 mg PO DAILY [facility] Last Admin: 01/05/18 10:29 Dose: 2.5 mg Morphine Sulfate (Morphine Sulfate) 4 mg IVPUSH Q4H PRN PRN Reason: PAIN LEVEL 6-10 Non-Formulary Medication (Patient's Own Med) 1 each PO BID [facility] Last Admin: 01/05/18 10:30 Dose: 1 each Pantoprazole Sodium (Protonix -) 20 mg PO DAILY [facility] Last Admin: 01/05/18 09:13 Dose: 20 mg Polyethylene Glycol (Miralax (For Daily Use) -) 17 gm PO DAILY [facility] Last Admin: 01/05/18 10:30 Dose: 17 grams Senna (Senna -) 1 tab PO HS [facility] a/p pneumonia/rul infiltrate/mass- sputum culture normal terence, not neutropenic intractable cough metastatic endometrial cancer d/c vancomycin switch to ceftriaxone Problem List - Problems (1) Pneumonia Code(s): J18.9 - PNEUMONIA, UNSPECIFIED ORGANISM (2) Pericardial effusion Code(s): I31.3 - PERICARDIAL EFFUSION (NONINFLAMMATORY) (3) Endometrial malignant neoplasm Code(s): C54.1 - MALIGNANT NEOPLASM OF ENDOMETRIUM (4) Penicillin allergy Code(s): Z88.0 - ALLERGY STATUS TO PENICILLIN
[2018-01-05] MEDS: SENNOSIDES 8.6MG TABLET (FP) PO SCH (21:01)
[2018-01-06] MEDS ORDERED: CEFEPIME HCL 1 GM VIAL (RESTRICTED TO ID) ONE ×3 (00:47→16:59)
[2018-01-06] MEDS ORDERED: DEXTROSE 5%-WATER 100 ML IVPB ONE ×3 (00:47→16:59)
[2018-01-06] MEDS: CEFEPIME 1 GM in DEXTROSE 5%-WATER 100 ML IVPB SCH ×3 (01:00→17:20)
[2018-01-06] MEDS: guaiFENesin/CODEINE 5 ML UNIT-DOSE CUPS PO PRN (01:12)
[2018-01-06 06:55] LABS: HEMATOCRIT 26.3 % (32.4-45.2); HEMOGLOBIN 8.9 GM/dL (10.7-15.3); MCH 31.7 pg (25.7-33.7); MCHC 33.8 g/dl (32.0-36.0); MEAN CELL VOLUME 93.9 fl (80-96); MEAN PLT VOLUME 7.4 fl (7.5-11.1); PLATELET COUNT 144 K/MM3 (134-434); RDW 18.1 % (11.6-15.6)
[2018-01-06 08:10] LABS: ALBUMIN 1.9 g/dl (3.4-5.0); ALK PHOS 92 U/L (45-117); ANION GAP 8 MMOL/L (8-16); BILIRUBIN,TOTAL 0.2 mg/dL (0.2-1); BLOOD UREA NITROGEN 3 mg/dL (7-18); CALCIUM 8.9 mg/dL (8.5-10.1); CHLORIDE 105 mmol/L (98-107); CO2 27 mmol/L (21-32); CREATININE 0.4 mg/dL (0.55-1.3); GLUCOSE,RANDOM 90 mg/dL (74-106); POTASSIUM 3.5 mmol/L (3.5-5.1); SGOT/AST 16 U/L (15-37); SGPT/ALT 17 U/L (13-61); SODIUM 141 mmol/L (136-145); TOT PROT 6.2 g/dl (6.4-8.2)
--- NOTE | 2018-01-06 09:07 | PN ---
Progress Note, Physician Chief Complaint: Diarrhea last night, likely from Colchicine TELE: NSR, sinus tach - Current Medication List Current Medications: Active Medications Colchicine (Colcrys -) 0.6 mg PO BID [facility] Last Admin: 01/05/18 21:01 Dose: 0.6 mg Enoxaparin Sodium (Lovenox -) 60 mg SQ BID [facility] Last Admin: 01/05/18 21:02 Dose: 60 mg Guaifenesin/Codeine Phosphate (Robitussin Ac -) 10 ml PO Q8H PRN PRN Reason: COUGH Last Admin: 01/06/18 01:12 Dose: 10 ml Hydromorphone HCl (Dilaudid -) 2 mg PO Q6H PRN PRN Reason: PAIN LEVEL 1-5 Last Admin: 01/05/18 20:50 Dose: 2 mg Cefepime HCl 1 gm/ Dextrose 100 mls @ 200 mls/hr IVPB Q8H-IV STEPHENIE; Protocol Last Admin: 01/06/18 01:00 Dose: 200 mls/hr Lactobacillus Acidophilus (Bacid -) 1 tab PO DAILY [facility] Last Admin: 01/05/18 09:14 Dose: 1 tab Letrozole (Femara -) 2.5 mg PO DAILY [facility] Last Admin: 01/05/18 10:29 Dose: 2.5 mg Morphine Sulfate (Morphine Sulfate) 4 mg IVPUSH Q4H PRN PRN Reason: PAIN LEVEL 6-10 Non-Formulary Medication (Patient's Own Med) 1 each PO BID [facility] Last Admin: 01/05/18 21:01 Dose: 1 each Pantoprazole Sodium (Protonix -) 20 mg PO DAILY [facility] Last Admin: 01/05/18 09:13 Dose: 20 mg Polyethylene Glycol (Miralax (For Daily Use) -) 17 gm PO DAILY [facility] Last Admin: 01/05/18 10:30 Dose: 17 grams Senna (Senna -) 1 tab PO HS [facility] Last Admin: 01/05/18 21:01 Dose: 1 tab - Objective Vital Signs: Vital Signs Temperature 98.2 F 01/06/18 06:00 Pulse Rate 100 H 01/06/18 06:00 Respiratory Rate 20 01/06/18 06:00 Blood Pressure 114/65 01/06/18 06:00 O2 Sat by Pulse Oximetry (%) 98 01/05/18 21:00 Constitutional: Yes: No Distress Cardiovascular: Yes: Regular Rate and Rhythm, Other (No JVD) Respiratory: Yes: Other (decreased breath sounds at bases) Gastrointestinal: Yes: Soft Edema: No Neurological: Yes: Alert ...Motor Strength: WNL Labs: CBC, BMP 01/06/18 06:30 01/06/18 06:30 INR, PTT INR 1.39 (0.83-1.09) H 01/03/18 18:30 Laboratory Tests 01/04/18 01/04/18 01/05/18 06:30 06:30 05:50 WBC 8.7 6.1 Hgb 9.0 L 8.9 L Plt Count 147 145 Sodium 138 Potassium 3.9 BUN 6 L Creatinine 0.5 L 01/05/18 01/06/18 01/06/18 05:50 06:30 06:30 WBC 4.0 Hgb 8.9 L Plt Count Sodium 139 141 Potassium 3.4 L 3.5 BUN Creatinine 0.4 L 0.4 L - ....Imaging EKG: Image Reviewed Assessment/Plan IMP: Metastatic endometrial Ca: lung, brain Chest pain secondary to pericardial effusion, suspected malignant Consolidation on chest CT H/o DVT REC: 1. Small fibrinous effusion with no evidence of tamponade. Decrease colchicine to QD. Holding NSAIDS due to hx of esophagitis. Repeat echo in 1-2 weeks or if clinical change. 2. Telemetry 3. IV fluids 4. Analgesia 5. AC with Lovenox for DVT 6. Supplimental O2 7. ID consulted for abx guidance: consolidation on CT, possible post-obstx PNA
[2018-01-06] MEDS: LACTOBACILLUS ACIDOPHILUS 1 TABLET PO SCH (09:50)
[2018-01-06] MEDS: PANTOPRAZOLE 20 MG TABLET (FP) PO SCH (09:50)
[2018-01-06] MEDS: ENOXAPARIN NA (PORCINE) 60 MG/0.6 ML DISP.SYRIN SQ SCH ×2 (09:50→21:56)
[2018-01-06] MEDS: LETROZOLE 2.5 MG TABLET (FP) PO SCH (09:51)
[2018-01-06] MEDS: POLYETHYLENE GLYCOL 3350 119 GM BTL PO SCH (09:52)
[2018-01-06] MEDS ORDERED: COLCHICINE 0.6 MG TABLET (FP) PO SCH (10:00)
[2018-01-06] MEDS: HYDROmorphone HCL 2 MG TABLET PO PRN ×2 (13:27→22:00)
--- NOTE | 2018-01-06 13:42 | PN ---
Progress Note, Physician History of Present Illness: pulmonary alert,feeling better,less cough,-sob,ambulating with assistance - Current Medication List Current Medications: Active Medications Colchicine (Colcrys -) 0.6 mg PO DAILY [facility] Last Admin: 01/06/18 09:51 Dose: 0.6 mg Enoxaparin Sodium (Lovenox -) 60 mg SQ BID [facility] Last Admin: 01/06/18 09:50 Dose: 60 mg Guaifenesin/Codeine Phosphate (Robitussin Ac -) 10 ml PO Q8H PRN PRN Reason: COUGH Last Admin: 01/06/18 01:12 Dose: 10 ml Hydromorphone HCl (Dilaudid -) 2 mg PO Q6H PRN PRN Reason: PAIN LEVEL 1-5 Last Admin: 01/05/18 20:50 Dose: 2 mg Cefepime HCl 1 gm/ Dextrose 100 mls @ 200 mls/hr IVPB Q8H-IV [facility]ENIE; Protocol Last Admin: 01/06/18 09:50 Dose: 200 mls/hr Lactobacillus Acidophilus (Bacid -) 1 tab PO DAILY [facility] Last Admin: 01/06/18 09:50 Dose: 1 tab Letrozole (Femara -) 2.5 mg PO DAILY [facility] Last Admin: 01/06/18 09:51 Dose: 2.5 mg Morphine Sulfate (Morphine Sulfate) 4 mg IVPUSH Q4H PRN PRN Reason: PAIN LEVEL 6-10 Non-Formulary Medication (Patient's Own Med) 1 each PO BID [facility] Last Admin: 01/06/18 09:51 Dose: 1 each Pantoprazole Sodium (Protonix -) 20 mg PO DAILY [facility] Last Admin: 01/06/18 09:50 Dose: 20 mg Polyethylene Glycol (Miralax (For Daily Use) -) 17 gm PO DAILY [facility] Last Admin: 01/06/18 09:52 Dose: Not Given Senna (Senna -) 1 tab PO HS [facility] Last Admin: 01/05/18 21:01 Dose: 1 tab - Objective Vital Signs: Vital Signs Temperature 97.6 F 01/06/18 10:00 Pulse Rate 106 H 01/06/18 10:00 Respiratory Rate 20 01/06/18 10:00 Blood Pressure 128/82 01/06/18 10:00 O2 Sat by Pulse Oximetry (%) 97 01/06/18 09:00 Constitutional: Yes: Well Nourished, Calm Eyes: Yes: WNL HENT: Yes: WNL Neck: Yes: WNL Cardiovascular: Yes: Regular Rate and Rhythm, S1, S2 Respiratory: Yes: CTA Bilaterally Gastrointestinal: Yes: Normal Bowel Sounds, Soft Extremities: Yes: WNL Edema: No Labs: CBC, BMP 01/06/18 06:30 01/06/18 06:30 INR, PTT INR 1.39 (0.83-1.09) H 01/03/18 18:30 Problem List - Problems (1) Pericardial effusion Code(s): I31.3 - PERICARDIAL EFFUSION (NONINFLAMMATORY) (2) Pneumonia Code(s): J18.9 - PNEUMONIA, UNSPECIFIED ORGANISM (3) Endometrial malignant neoplasm Code(s): C54.1 - MALIGNANT NEOPLASM OF ENDOMETRIUM (4) Lung metastases Code(s): C78.00 - SECONDARY MALIGNANT NEOPLASM OF UNSPECIFIED LUNG Assessment/Plan A/P Pneumonia - r/o Post obstructive Metastatic Endometrial Cancer to lung, brain Pericardial Effusion h/o DVT - continue antibiotics - f/u cultures - pain control - O2 as needed - continue anticoagulation DR JONES
--- NOTE | 2018-01-06 14:06 | PN ---
Progress Note, Physician Chief Complaint: ASLEEP COMFORTABLE - Current Medication List Current Medications: Active Medications Colchicine (Colcrys -) 0.6 mg PO DAILY [facility] Last Admin: 01/06/18 09:51 Dose: 0.6 mg Enoxaparin Sodium (Lovenox -) 60 mg SQ BID [facility] Last Admin: 01/06/18 09:50 Dose: 60 mg Guaifenesin/Codeine Phosphate (Robitussin Ac -) 10 ml PO Q8H PRN PRN Reason: COUGH Last Admin: 01/06/18 01:12 Dose: 10 ml Hydromorphone HCl (Dilaudid -) 2 mg PO Q6H PRN PRN Reason: PAIN LEVEL 1-5 Last Admin: 01/06/18 13:27 Dose: 2 mg Cefepime HCl 1 gm/ Dextrose 100 mls @ 200 mls/hr IVPB Q8H-IV STEPHENIE; Protocol Last Admin: 01/06/18 09:50 Dose: 200 mls/hr Lactobacillus Acidophilus (Bacid -) 1 tab PO DAILY [facility] Last Admin: 01/06/18 09:50 Dose: 1 tab Letrozole (Femara -) 2.5 mg PO DAILY [facility] Last Admin: 01/06/18 09:51 Dose: 2.5 mg Morphine Sulfate (Morphine Sulfate) 4 mg IVPUSH Q4H PRN PRN Reason: PAIN LEVEL 6-10 Non-Formulary Medication (Patient's Own Med) 1 each PO BID [facility] Last Admin: 01/06/18 09:51 Dose: 1 each Pantoprazole Sodium (Protonix -) 20 mg PO DAILY [facility] Last Admin: 01/06/18 09:50 Dose: 20 mg Polyethylene Glycol (Miralax (For Daily Use) -) 17 gm PO DAILY [facility] Last Admin: 01/06/18 09:52 Dose: Not Given Senna (Senna -) 1 tab PO HS [facility] Last Admin: 01/05/18 21:01 Dose: 1 tab - Objective Vital Signs: Vital Signs Temperature 97.6 F 01/06/18 10:00 Pulse Rate 106 H 01/06/18 10:00 Respiratory Rate 20 01/06/18 10:00 Blood Pressure 128/82 01/06/18 10:00 O2 Sat by Pulse Oximetry (%) 97 01/06/18 09:00 Constitutional: Yes: No Distress Eyes: Yes: WNL HENT: Yes: WNL Neck: Yes: WNL Cardiovascular: Yes: WNL Respiratory: Yes: On Nasal O2, Other Gastrointestinal: Yes: WNL Genitourinary: Yes: WNL Musculoskeletal: Yes: Muscle Weakness Extremities: Yes: WNL Edema: No Peripheral Pulses WNL: Yes Integumentary: Yes: WNL Wound/Incision: Yes: Clean/Dry Neurological: Yes: Pre-Existing Deficit Psychiatric: Yes: WNL Labs: CBC, BMP 01/06/18 06:30 01/06/18 06:30 INR, PTT INR 1.39 (0.83-1.09) H 01/03/18 18:30 Problem List - Problems (1) Pericardial effusion Code(s): I31.3 - PERICARDIAL EFFUSION (NONINFLAMMATORY) (2) Pneumonia Code(s): J18.9 - PNEUMONIA, UNSPECIFIED ORGANISM (3) Endometrial malignant neoplasm Code(s): C54.1 - MALIGNANT NEOPLASM OF ENDOMETRIUM (4) Cancer associated pain Code(s): G89.3 - NEOPLASM RELATED PAIN (ACUTE) (CHRONIC) (5) Lung metastases Code(s): C78.00 - SECONDARY MALIGNANT NEOPLASM OF UNSPECIFIED LUNG Assessment/Plan D/W PULMONARY AND REVIEWED ID NOTES WILL CHANGE TO PO CEFTIN IN AM NEBS OOB TO CHAIR PT EVAL CORRECT KCL DVT PROPHYLAXIS
[2018-01-06] MEDS ORDERED: POTASSIUM CHLORIDE TABS 10 MEQ TABLET.ER (FP) PO ONE (14:30)
--- NOTE | 2018-01-06 16:47 | PN ---
Progress Note (short form) - Note Progress Note: persistent cough is improved, still with intermittent cough which she has had since her diagnosis no fevers since admission repeat echo- small pericardial effusion Vital Signs Period Temp Pulse Resp BP Sys/Alexandra Pulse Ox Last 24 Hr 97.6 F-98.2 F 100-108 18-20 114-133/65-82 97-98 cor-rrr lungs clear abd soft,nt ext no edema CBC, BMP 01/06/18 06:30 01/06/18 06:30 Microbiology 01/04/18 12:05 Sputum - Expectorated Gram Stain - Final 01/04/18 12:05 Sputum - Expectorated Sputum Culture - Final NORMAL RESPIRATORY TERENCE 01/03/18 18:30 Blood - Peripheral Venous Blood Culture - Preliminary NO GROWTH OBTAINED AFTER 48 HOURS, INCUBATION TO CONTINUE FOR 3 DAYS. 01/03/18 18:30 Blood - Peripheral Venous Blood Culture - Preliminary NO GROWTH OBTAINED AFTER 48 HOURS, INCUBATION TO CONTINUE FOR 3 DAYS. 01/04/18 12:05 Urine - Urine Clean Catch Legionella Antigen - Final 01/04/18 12:05 Urine - Urine Clean Catch Streptococcus pneumoniae Antigen ( M - Final Current Medications Colchicine (Colcrys -) 0.6 mg PO DAILY [facility] Last Admin: 01/06/18 09:51 Dose: 0.6 mg Enoxaparin Sodium (Lovenox -) 60 mg SQ BID [facility] Last Admin: 01/06/18 09:50 Dose: 60 mg Guaifenesin/Codeine Phosphate (Robitussin Ac -) 10 ml PO Q8H PRN PRN Reason: COUGH Last Admin: 01/06/18 01:12 Dose: 10 ml Hydromorphone HCl (Dilaudid -) 2 mg PO Q6H PRN PRN Reason: PAIN LEVEL 1-5 Last Admin: 01/06/18 13:27 Dose: 2 mg Cefepime HCl 1 gm/ Dextrose 100 mls @ 200 mls/hr IVPB Q8H-IV STEPHENIE; Protocol Last Admin: 01/06/18 09:50 Dose: 200 mls/hr Lactobacillus Acidophilus (Bacid -) 1 tab PO DAILY [facility] Last Admin: 01/06/18 09:50 Dose: 1 tab Letrozole (Femara -) 2.5 mg PO DAILY [facility] Last Admin: 01/06/18 09:51 Dose: 2.5 mg Morphine Sulfate (Morphine Sulfate) 4 mg IVPUSH Q4H PRN PRN Reason: PAIN LEVEL 6-10 Non-Formulary Medication (Patient's Own Med) 1 each PO BID [facility] Last Admin: 01/06/18 09:51 Dose: 1 each Pantoprazole Sodium (Protonix -) 20 mg PO DAILY [facility] Last Admin: 01/06/18 09:50 Dose: 20 mg Polyethylene Glycol (Miralax (For Daily Use) -) 17 gm PO DAILY [facility] Last Admin: 01/06/18 09:52 Dose: Not Given Senna (Senna -) 1 tab PO HS [facility] Last Admin: 01/05/18 21:01 Dose: 1 tab a/p pneumonia/rul infiltrate/mass- sputum culture normal terence, not neutropenic intractable cough metastatic endometrial cancer d/w Dr Rea can change to po ceftin 500 bid in am to complete 10 days Problem List - Problems (1) Pneumonia Code(s): J18.9 - PNEUMONIA, UNSPECIFIED ORGANISM (2) Pericardial effusion Code(s): I31.3 - PERICARDIAL EFFUSION (NONINFLAMMATORY) (3) Endometrial malignant neoplasm Code(s): C54.1 - MALIGNANT NEOPLASM OF ENDOMETRIUM (4) Penicillin allergy Code(s): Z88.0 - ALLERGY STATUS TO PENICILLIN
[2018-01-06] MEDS ORDERED: ONDANSETRON 4 MG/2 ML VIAL IVPUSH ONE (19:39)
[2018-01-06] MEDS: SENNOSIDES 8.6MG TABLET (FP) PO SCH (21:18)
[2018-01-07] MEDS ORDERED: CEFEPIME HCL 1 GM VIAL (RESTRICTED TO ID) ONE ×4 (02:51→18:04)
[2018-01-07] MEDS ORDERED: DEXTROSE 5%-WATER 100 ML IVPB ONE ×4 (02:52→18:04)
[2018-01-07] MEDS: CEFEPIME 1 GM in DEXTROSE 5%-WATER 100 ML IVPB SCH ×3 (03:02→18:06)
[2018-01-07 07:23] LABS: HEMATOCRIT 27.1 % (32.4-45.2); HEMOGLOBIN 8.7 GM/dL (10.7-15.3); MCH 29.9 pg (25.7-33.7); MEAN CELL VOLUME 93.2 fl (80-96); MEAN PLT VOLUME 7.3 fl (7.5-11.1); PLATELET COUNT 143 K/MM3 (134-434); RDW 17.3 % (11.6-15.6); WHITE BLOOD COUNT 3.2 K/mm3 (4.0-10.0)
[2018-01-07 08:52] LABS: ALK PHOS 95 U/L (45-117); ANION GAP 9 MMOL/L (8-16); BILIRUBIN,TOTAL 0.3 mg/dL (0.2-1); BLOOD UREA NITROGEN 3 mg/dL (7-18); CHLORIDE 103 mmol/L (98-107); CO2 26 mmol/L (21-32); CREATININE 0.6 mg/dL (0.55-1.3); GLUCOSE,RANDOM 121 mg/dL (74-106); SGOT/AST 28 U/L (15-37); SGPT/ALT 24 U/L (13-61); SODIUM 138 mmol/L (136-145); TOT PROT 6.6 g/dl (6.4-8.2)
--- NOTE | 2018-01-07 08:55 | PN ---
Progress Note, Physician Chief Complaint: Diarrhea all night- possibly due to colchicine TELE: NSR - Current Medication List Current Medications: Active Medications Colchicine (Colcrys -) 0.6 mg PO DAILY [facility] Last Admin: 01/06/18 09:51 Dose: 0.6 mg Enoxaparin Sodium (Lovenox -) 60 mg SQ BID [facility] Last Admin: 01/06/18 21:56 Dose: 60 mg Guaifenesin/Codeine Phosphate (Robitussin Ac -) 10 ml PO Q8H PRN PRN Reason: COUGH Last Admin: 01/06/18 01:12 Dose: 10 ml Hydromorphone HCl (Dilaudid -) 2 mg PO Q6H PRN PRN Reason: PAIN LEVEL 1-5 Last Admin: 01/06/18 22:00 Dose: 2 mg Cefepime HCl 1 gm/ Dextrose 100 mls @ 200 mls/hr IVPB Q8H-IV STEPHENIE; Protocol Last Admin: 01/07/18 03:02 Dose: 200 mls/hr Lactobacillus Acidophilus (Bacid -) 1 tab PO DAILY [facility] Last Admin: 01/06/18 09:50 Dose: 1 tab Letrozole (Femara -) 2.5 mg PO DAILY [facility] Last Admin: 01/06/18 09:51 Dose: 2.5 mg Morphine Sulfate (Morphine Sulfate) 4 mg IVPUSH Q4H PRN PRN Reason: PAIN LEVEL 6-10 Non-Formulary Medication (Patient's Own Med) 1 each PO BID [facility] Last Admin: 01/06/18 21:57 Dose: 1 each Pantoprazole Sodium (Protonix -) 20 mg PO DAILY [facility] Last Admin: 01/06/18 09:50 Dose: 20 mg Polyethylene Glycol (Miralax (For Daily Use) -) 17 gm PO DAILY [facility] Last Admin: 01/06/18 09:52 Dose: Not Given Senna (Senna -) 1 tab PO HS [facility] Last Admin: 01/06/18 21:18 Dose: Not Given - Objective Vital Signs: Vital Signs Temperature 98.4 F 01/07/18 02:04 Pulse Rate 95 H 01/07/18 05:53 Respiratory Rate 20 01/07/18 05:53 Blood Pressure 132/74 01/07/18 05:53 O2 Sat by Pulse Oximetry (%) 96 01/06/18 20:59 Constitutional: Yes: No Distress, Calm Eyes: Yes: Conjunctiva Clear Cardiovascular: Yes: Regular Rate and Rhythm Respiratory: Yes: CTA Bilaterally Gastrointestinal: Yes: Soft (nontender) Edema: No Neurological: Yes: Alert, Oriented ...Motor Strength: WNL Labs: CBC, BMP 01/07/18 05:50 01/07/18 05:50 INR, PTT INR 1.39 (0.83-1.09) H 01/03/18 18:30 Laboratory Tests 01/07/18 01/07/18 05:50 05:50 WBC 3.2 L Hgb 8.7 L Plt Count 143 Sodium 138 Potassium Pending Chloride 103 BUN 3 L Creatinine 0.6 - ....Imaging EKG: Image Reviewed Assessment/Plan IMP: Metastatic endometrial Ca: lung, brain Chest pain secondary to pericardial effusion, suspected malignant Consolidation on chest CT H/o DVT Diarrhea: ? Colchicine? REC: 1. Small fibrinous effusion with no evidence of tamponade. D/C Colchicine. Holding NSAIDS due to hx of esophagitis. Serial echo f/u 2. Telemetry 3. IV fluids 4. Analgesia 5. AC with Lovenox for DVT 6. Supplimental O2 7. ID consulted for abx guidance: consolidation on CT, possible post-obstx PNA
[2018-01-07] MEDS: POLYETHYLENE GLYCOL 3350 119 GM BTL PO SCH (09:26)
[2018-01-07] MEDS: ENOXAPARIN NA (PORCINE) 60 MG/0.6 ML DISP.SYRIN SQ SCH ×2 (09:33→21:12)
[2018-01-07] MEDS: LACTOBACILLUS ACIDOPHILUS 1 TABLET PO SCH (09:33)
[2018-01-07] MEDS ORDERED: PT OWN MED DRAWER 7, Y5N ONE ×4 (09:33→23:17)
[2018-01-07] MEDS: PANTOPRAZOLE 20 MG TABLET (FP) PO SCH (09:34)
[2018-01-07] MEDS: HYDROmorphone HCL 2 MG TABLET PO PRN ×2 (09:35→18:17)
[2018-01-07] MEDS: LETROZOLE 2.5 MG TABLET (FP) PO SCH (09:36)
[2018-01-07 09:39] LABS: POTASSIUM 2.9 mmol/L (3.5-5.1)
[2018-01-07] MEDS ORDERED: KCL 10 MEQ IVPB 10 MEQ/100 ML INFUS.BAG IVPB SCH (10:30)
[2018-01-07] MEDS ORDERED: POTASSIUM CHLORIDE TABS 20 MEQ TABLET.ER (FP) PO ONE (10:30)
--- NOTE | 2018-01-07 13:51 | PN ---
Progress Note, Physician History of Present Illness: PULMONARY ALERT,NO DISTRESS,-CP,-SOB,MIN COUGH - Current Medication List Current Medications: Active Medications Enoxaparin Sodium (Lovenox -) 60 mg SQ BID [facility] Last Admin: 01/07/18 09:33 Dose: 60 mg Guaifenesin/Codeine Phosphate (Robitussin Ac -) 10 ml PO Q8H PRN PRN Reason: COUGH Last Admin: 01/06/18 01:12 Dose: 10 ml Hydromorphone HCl (Dilaudid -) 2 mg PO Q6H PRN PRN Reason: PAIN LEVEL 1-5 Last Admin: 01/07/18 09:35 Dose: 2 mg Cefepime HCl 1 gm/ Dextrose 100 mls @ 200 mls/hr IVPB Q8H-IV STE[facility]ENIE; Protocol Last Admin: 01/07/18 09:33 Dose: 200 mls/hr Lactobacillus Acidophilus (Bacid -) 1 tab PO DAILY [facility] Last Admin: 01/07/18 09:33 Dose: 1 tab Letrozole (Femara -) 2.5 mg PO DAILY [facility] Last Admin: 01/07/18 09:36 Dose: 2.5 mg Morphine Sulfate (Morphine Sulfate) 4 mg IVPUSH Q4H PRN PRN Reason: PAIN LEVEL 6-10 Non-Formulary Medication (Patient's Own Med) 1 each PO BID [facility] Last Admin: 01/07/18 09:34 Dose: 1 each Pantoprazole Sodium (Protonix -) 20 mg PO DAILY [facility] Last Admin: 01/07/18 09:34 Dose: 20 mg Polyethylene Glycol (Miralax (For Daily Use) -) 17 gm PO DAILY [facility] Last Admin: 01/07/18 09:26 Dose: Not Given Senna (Senna -) 1 tab PO HS [facility] Last Admin: 01/06/18 21:18 Dose: Not Given - Objective Vital Signs: Vital Signs Temperature 98.4 F 01/07/18 02:04 Pulse Rate 114 H 01/07/18 10:00 Respiratory Rate 20 01/07/18 10:00 Blood Pressure 132/74 01/07/18 05:53 O2 Sat by Pulse Oximetry (%) 96 01/07/18 10:00 Constitutional: Yes: Well Nourished, Calm Eyes: Yes: WNL HENT: Yes: WNL Neck: Yes: WNL Cardiovascular: Yes: Regular Rate and Rhythm, S1, S2 Respiratory: Yes: CTA Bilaterally Gastrointestinal: Yes: Normal Bowel Sounds, Soft Extremities: Yes: WNL Edema: No Labs: CBC, BMP 01/07/18 05:50 01/07/18 05:50 INR, PTT INR 1.39 (0.83-1.09) H 01/03/18 18:30 Problem List - Problems (1) Pericardial effusion Code(s): I31.3 - PERICARDIAL EFFUSION (NONINFLAMMATORY) (2) Pneumonia Code(s): J18.9 - PNEUMONIA, UNSPECIFIED ORGANISM (3) Endometrial malignant neoplasm Code(s): C54.1 - MALIGNANT NEOPLASM OF ENDOMETRIUM (4) Lung metastases Code(s): C78.00 - SECONDARY MALIGNANT NEOPLASM OF UNSPECIFIED LUNG Assessment/Plan A/P Pneumonia - r/o Post obstructive Metastatic Endometrial Cancer to lung, brain Pericardial Effusion h/o DVT - antibiotics as ID - pain control - O2 as needed - anticoagulation - replete k DR JONES
[2018-01-07 17:24] LABS: CREATININE 0.4 mg/dL (0.55-1.3)
[2018-01-07 18:46] LABS: ANION GAP 10 MMOL/L (8-16); BLOOD UREA NITROGEN 3 mg/dL (7-18); CALCIUM 8.6 mg/dL (8.5-10.1); CHLORIDE 103 mmol/L (98-107); CO2 27 mmol/L (21-32); GLUCOSE,RANDOM 91 mg/dL (74-106); MAGNESIUM 1.9 mg/dL (1.8-2.4); POTASSIUM 3.6 mmol/L (3.5-5.1); SODIUM 139 mmol/L (136-145)
[2018-01-07] MEDS ORDERED: MAGNESIUM OXIDE 400 MG TABLET (FP) PO ONE (19:15)
[2018-01-07] MEDS ORDERED: POTASSIUM CHLORIDE ORAL LIQUID 20 MEQ/15 ML PO ONE (19:30)
[2018-01-07] MEDS ORDERED: LIDOCAINE HCL 5% TOP OINTMENT 50 GM TUBE TP ONE (20:00)
--- NOTE | 2018-01-07 20:35 | PN ---
Progress Note, Physician Chief Complaint: PATIENT WAS TO BE DISCHARGED TODAY HOWEVER K+ 2.9 DENIES CP/SOB FEELING BETTER - Current Medication List Current Medications: Active Medications Enoxaparin Sodium (Lovenox -) 60 mg SQ BID [facility] Last Admin: 01/07/18 09:33 Dose: 60 mg Guaifenesin/Codeine Phosphate (Robitussin Ac -) 10 ml PO Q8H PRN PRN Reason: COUGH Last Admin: 01/06/18 01:12 Dose: 10 ml Hydromorphone HCl (Dilaudid -) 2 mg PO Q6H PRN PRN Reason: PAIN LEVEL 1-5 Last Admin: 01/07/18 18:17 Dose: 2 mg Cefepime HCl 1 gm/ Dextrose 100 mls @ 200 mls/hr IVPB Q8H-IV [facility]ENIE; Protocol Last Admin: 01/07/18 18:06 Dose: 200 mls/hr Lactobacillus Acidophilus (Bacid -) 1 tab PO DAILY [facility] Last Admin: 01/07/18 09:33 Dose: 1 tab Letrozole (Femara -) 2.5 mg PO DAILY [facility] Last Admin: 01/07/18 09:36 Dose: 2.5 mg Morphine Sulfate (Morphine Sulfate) 4 mg IVPUSH Q4H PRN PRN Reason: PAIN LEVEL 6-10 Non-Formulary Medication (Patient's Own Med) 1 each PO BID [facility] Last Admin: 01/07/18 09:34 Dose: 1 each Pantoprazole Sodium (Protonix -) 20 mg PO DAILY [facility] Last Admin: 01/07/18 09:34 Dose: 20 mg Polyethylene Glycol (Miralax (For Daily Use) -) 17 gm PO DAILY [facility] Last Admin: 01/07/18 09:26 Dose: Not Given Senna (Senna -) 1 tab PO HS [facility] Last Admin: 01/06/18 21:18 Dose: Not Given - Objective Vital Signs: Vital Signs Temperature 98.3 F 01/07/18 16:40 Pulse Rate 101 H 01/07/18 16:40 Respiratory Rate 18 01/07/18 16:40 Blood Pressure 103/61 01/07/18 16:40 O2 Sat by Pulse Oximetry (%) 96 01/07/18 10:00 Constitutional: Yes: Mild Distress Eyes: Yes: WNL HENT: Yes: WNL Neck: Yes: WNL Cardiovascular: Yes: WNL Respiratory: Yes: WNL Gastrointestinal: Yes: WNL Genitourinary: Yes: WNL Musculoskeletal: Yes: Muscle Weakness Extremities: Yes: WNL Edema: No Peripheral Pulses WNL: Yes Integumentary: Yes: WNL Wound/Incision: Yes: Clean/Dry Neurological: Yes: WNL ...Motor Strength: LLE, RLE Psychiatric: Yes: WNL Labs: CBC, BMP 01/07/18 05:50 01/07/18 15:15 INR, PTT INR 1.39 (0.83-1.09) H 01/03/18 18:30 Problem List - Problems (1) Pericardial effusion Code(s): I31.3 - PERICARDIAL EFFUSION (NONINFLAMMATORY) (2) Pneumonia Code(s): J18.9 - PNEUMONIA, UNSPECIFIED ORGANISM (3) Endometrial malignant neoplasm Code(s): C54.1 - MALIGNANT NEOPLASM OF ENDOMETRIUM (4) Cancer associated pain Code(s): G89.3 - NEOPLASM RELATED PAIN (ACUTE) (CHRONIC) (5) Lung metastases Code(s): C78.00 - SECONDARY MALIGNANT NEOPLASM OF UNSPECIFIED LUNG (6) Hypokalemia Code(s): E87.6 - HYPOKALEMIA Assessment/Plan REPLETING K+ REPEAT BMP WITH MG+ AT 3PM WILL NEED TO KEEP TIL TOMORROW REPEAT LABS IN AM ALSO DC PLANNING TOMORROW F/U WITH PMD/ONCOLOGY OUTPATIENT
[2018-01-07] MEDS: SENNOSIDES 8.6MG TABLET (FP) PO SCH (21:12)
[2018-01-08] MEDS ORDERED: ACETAMINOPHEN 500 MG TABLET (FP) PO ONE (00:17)
[2018-01-08] MEDS ORDERED: DEXTROSE 5%-WATER 100 ML IVPB ONE (01:27)
[2018-01-08] MEDS ORDERED: CEFEPIME HCL 1 GM VIAL (RESTRICTED TO ID) ONE (01:27)
[2018-01-08] MEDS: CEFEPIME 1 GM in DEXTROSE 5%-WATER 100 ML IVPB SCH (01:30)
[2018-01-08 06:52] LABS: HEMATOCRIT 27.5 % (32.4-45.2); HEMOGLOBIN 8.9 GM/dL (10.7-15.3); MCH 30.2 pg (25.7-33.7); MCHC 32.3 g/dl (32.0-36.0); MEAN CELL VOLUME 93.5 fl (80-96); MEAN PLT VOLUME 7.3 fl (7.5-11.1); PLATELET COUNT 131 K/MM3 (134-434); RBC 2.94 M/mm3 (3.60-5.2); RDW 17.5 % (11.6-15.6); WHITE BLOOD COUNT 3.3 K/mm3 (4.0-10.0)
[2018-01-08 07:35] LABS: ALBUMIN 2.2 g/dl (3.4-5.0); ALK PHOS 84 U/L (45-117); ANION GAP 8 MMOL/L (8-16); BILIRUBIN,TOTAL 0.2 mg/dL (0.2-1); BLOOD UREA NITROGEN 3 mg/dL (7-18); CALCIUM 9.2 mg/dL (8.5-10.1); CHLORIDE 104 mmol/L (98-107); CO2 27 mmol/L (21-32); CREATININE 0.4 mg/dL (0.55-1.3); GLUCOSE,RANDOM 85 mg/dL (74-106); SGOT/AST 19 U/L (15-37); SGPT/ALT 21 U/L (13-61); SODIUM 138 mmol/L (136-145); TOT PROT 6.6 g/dl (6.4-8.2)
--- NOTE | 2018-01-08 08:37 | PN ---
Progress Note, Physician Chief Complaint: no chest pain Still w/ dry cough No palpitations. TELE: NSR, sinus tach. Rare PVCs Diarrhea slowing down - Current Medication List Current Medications: Active Medications Enoxaparin Sodium (Lovenox -) 60 mg SQ BID [facility] Last Admin: 01/07/18 21:12 Dose: 60 mg Guaifenesin/Codeine Phosphate (Robitussin Ac -) 10 ml PO Q8H PRN PRN Reason: COUGH Last Admin: 01/06/18 01:12 Dose: 10 ml Hydromorphone HCl (Dilaudid -) 2 mg PO Q6H PRN PRN Reason: PAIN LEVEL 1-5 Last Admin: 01/07/18 18:17 Dose: 2 mg Ceftriaxone Sodium 1 gm/ (Dextrose) 50 mls @ 100 mls/hr IVPB DAILY [facility]; Protocol Lactobacillus Acidophilus (Bacid -) 1 tab PO DAILY [facility] Last Admin: 01/07/18 09:33 Dose: 1 tab Letrozole (Femara -) 2.5 mg PO DAILY [facility] Last Admin: 01/07/18 09:36 Dose: 2.5 mg Morphine Sulfate (Morphine Sulfate) 4 mg IVPUSH Q4H PRN PRN Reason: PAIN LEVEL 6-10 Non-Formulary Medication (Patient's Own Med) 1 each PO BID [facility] Last Admin: 01/07/18 21:12 Dose: 1 each Pantoprazole Sodium (Protonix -) 20 mg PO DAILY [facility] Last Admin: 01/07/18 09:34 Dose: 20 mg Polyethylene Glycol (Miralax (For Daily Use) -) 17 gm PO DAILY [facility] Last Admin: 01/07/18 09:26 Dose: Not Given Senna (Senna -) 1 tab PO HS [facility] Last Admin: 01/07/18 21:12 Dose: Not Given - Objective Vital Signs: Vital Signs Temperature 98.1 F 01/08/18 06:00 Pulse Rate 97 H 01/08/18 06:00 Respiratory Rate 18 01/08/18 06:00 Blood Pressure 125/79 01/08/18 06:00 O2 Sat by Pulse Oximetry (%) 97 01/07/18 21:00 Constitutional: Yes: Calm Eyes: Yes: Conjunctiva Clear Cardiovascular: Yes: Regular Rate and Rhythm Respiratory: Yes: Rhonchi Gastrointestinal: Yes: Soft Edema: No Neurological: Yes: Alert, Oriented Labs: CBC, BMP 01/08/18 06:00 01/08/18 06:00 INR, PTT INR 1.39 (0.83-1.09) H 01/03/18 18:30 Laboratory Tests 01/08/18 01/08/18 06:00 06:00 WBC 3.3 L Hgb 8.9 L Hct 27.5 L Plt Count 131 L Sodium 138 Potassium 4.0 Creatinine 0.4 L - ....Imaging EKG: Image Reviewed Assessment/Plan IMP: Metastatic endometrial Ca: lung, brain Chest pain secondary to pericardial effusion, suspected malignant Consolidation on chest CT H/o DVT Diarrhea: ? Colchicine? REC: 1. Small fibrinous effusion with no evidence of tamponade. D/C Colchicine. Holding NSAIDS due to hx of esophagitis. Repeat echo today prior to discharge. D/C planning.
[2018-01-08] MEDS ORDERED: cefTRIAXone SODIUM 1 GM VIAL ONE (09:10)
[2018-01-08] MEDS ORDERED: DEXTROSE 5%-WATER - 50 ML IVPB ONE (09:10)
[2018-01-08] MEDS: ENOXAPARIN NA (PORCINE) 60 MG/0.6 ML DISP.SYRIN SQ SCH (09:36)
[2018-01-08] MEDS: guaiFENesin/CODEINE 5 ML UNIT-DOSE CUPS PO PRN (09:37)
[2018-01-08] MEDS: LACTOBACILLUS ACIDOPHILUS 1 TABLET PO SCH (09:37)
[2018-01-08] MEDS: HYDROmorphone HCL 2 MG TABLET PO PRN (09:37)
[2018-01-08] MEDS: PANTOPRAZOLE 20 MG TABLET (FP) PO SCH (09:38)
[2018-01-08] MEDS: POLYETHYLENE GLYCOL 3350 119 GM BTL PO SCH (09:38)
[2018-01-08] MEDS: LETROZOLE 2.5 MG TABLET (FP) PO SCH (09:38)
[2018-01-08] MEDS ORDERED: CEFTRIAXONE 1 GM in DEXTROSE 5%-WATER - 50 ML IVPB SCH (10:00)
[2018-01-08 11:11] VITALS: TEMP 98.3
--- NOTE | 2018-01-08 11:31 | DS ---
Physical Examination Vital Signs: Vital Signs Temperature 98.3 F 01/08/18 10:00 Pulse Rate 96 H 01/08/18 10:00 Respiratory Rate 18 01/08/18 10:00 Blood Pressure 122/80 01/08/18 10:00 O2 Sat by Pulse Oximetry (%) 98 01/08/18 09:00 Findings/Remarks: 4 EPISODES OF DIARRHEA, NON-BLODDY AND NOT FOUL SMELLING . LIKELY FROM COLCHICINE NO DISTRESS Constitutional: Yes: No Distress Eyes: Yes: WNL HENT: Yes: WNL Neck: Yes: WNL Cardiovascular: Yes: WNL Respiratory: Yes: WNL Gastrointestinal: Yes: WNL Renal/: Yes: WNL Musculoskeletal: Yes: Muscle Weakness Extremities: Yes: WNL Edema: No Peripheral Pulses WNL: Yes Integumentary: Yes: WNL Wound/Incision: Yes: Clean/Dry Neurological: Yes: WNL ...Motor Strength: LLE, RLE Psychiatric: Yes: Other Labs: CBC, BMP 01/08/18 06:00 01/08/18 06:00 Discharge Summary Reason For Visit: PNEUMONIA Current Active Problems Hypokalemia (Acute) Penicillin allergy (Acute) Pericardial effusion (Acute) Pneumonia (Acute) Endometrial malignant neoplasm (Chronic) Procedures: Principal: CT SCANS/ECHO Hospital Course: TREATED FOR PNEUMONIA, 02 SUPPORT, IV ABX, NEBS, PROTEIN ORAL INTAKE SUPPLEMENTS. WILL NEED F/U OF LABS IN 3-4 DAYS. IF DIARRHEA CONTINUES WILL NEED CDIFF CHECK Condition: Improved - Instructions Diet, Activity, Other Instructions: LACTOSE FREE LOW FIBER DIET UNTIL DIARRHEA IMPROVES HAVE LABS DONE IN THE NEXT 3-4 DAYS NUTRITION SUPPLEMENTATION Referrals: Sheila Sen MD [Primary Care Provider] - Disposition: VNS/HOME HEALTH CARE - Home Medications Comprehensive Discharge Medication List: Ambulatory Orders Enoxaparin [Lovenox -] 60 mg SQ BID 12/22/17 Letrozole [Femara -] 2.5 mg PO DAILY 12/22/17 Pantoprazole Sodium [Protonix -] 20 mg PO DAILY 12/22/17 Benzonatate 100 mg PO BID 01/03/18 Oxycodone HCl 5 mg PO Q4H PRN 01/04/18
--- NOTE | 2018-01-08 12:32 | ECHO ---
Name: SYLVIE CEE Exam:Adult Echocardiogram Study Date: 01/08/2018 11:33 AM Age: 57 yrs Reason For Study: PERICARDIAL EFFUSION F/U Height: 59 in Weight: 130 lb BSA: 1.5 m2 Procedure A limited two-dimensional transthoracic echocardiogram was performed (2D). Left Ventricle The left ventricular size, thickness and function are normal. Right Ventricle The right ventricle is normal in size and function. Pericardium/Pleura Small pericardial effusion (<1cm). There are no echocardiographic indications of cardiac tamponade. Interpretation Summary A limited two-dimensional transthoracic echocardiogram was performed to monitor pericardial effusion. The left ventricular size, thickness and function are normal The right ventricle is normal in size and function. Small pericardial effusion (<1cm) There are no echocardiographic indications of cardiac tamponade. No significant change in pericardial effusion compared to 01/05/18 echo. MD Stone Sheikh 01/08/2018 12:31 PM
[2018-01-08 14:06] VITALS: BP 103/60; PULSE 100
--- NOTE | 2018-01-08 14:20 | PN ---
Progress Note (short form) - Note Progress Note: Breathing feels OK. Diarrhea x 4 overnight. Now better. Intake & Output 01/05/18 01/06/18 01/07/18 01/08/18 23:59 23:59 23:59 23:59 Intake Total 3630 1170 120 100 Balance 3630 1170 120 100 Weight 130 lb Last Vital Signs Temp Pulse Resp BP Pulse Ox 98.3 F 100 H 18 103/60 98 01/08/18 13:00 01/08/18 13:00 01/08/18 13:00 01/08/18 13:00 01/08/18 09:00 Active Medications Enoxaparin Sodium (Lovenox -) 60 mg SQ BID ON [facility] Last Admin: 01/08/18 09:36 Dose: 60 mg Guaifenesin/Codeine Phosphate (Robitussin Ac -) 10 ml PO Q8H PRN PRN Reason: COUGH Last Admin: 01/08/18 09:37 Dose: 10 ml Hydromorphone HCl (Dilaudid -) 2 mg PO Q6H PRN PRN Reason: PAIN LEVEL 1-5 Last Admin: 01/08/18 09:37 Dose: 2 mg Ceftriaxone Sodium 1 gm/ (Dextrose) 50 mls @ 100 mls/hr IVPB DAILY [facility]; Protocol Last Admin: 01/08/18 09:36 Dose: 100 mls/hr Lactobacillus Acidophilus (Bacid -) 1 tab PO DAILY [facility] Last Admin: 01/08/18 09:37 Dose: 1 tab Letrozole (Femara -) 2.5 mg PO DAILY [facility] Last Admin: 01/08/18 09:38 Dose: 2.5 mg Morphine Sulfate (Morphine Sulfate) 4 mg IVPUSH Q4H PRN PRN Reason: PAIN LEVEL 6-10 Non-Formulary Medication (Patient's Own Med) 1 each PO BID ON [facility] Last Admin: 01/08/18 09:38 Dose: 1 each Pantoprazole Sodium (Protonix -) 20 mg PO DAILY [facility] Last Admin: 01/08/18 09:38 Dose: 20 mg Polyethylene Glycol (Miralax (For Daily Use) -) 17 gm PO DAILY [facility] Last Admin: 01/08/18 09:38 Dose: Not Given Senna (Senna -) 1 tab PO HS [facility] Last Admin: 01/07/18 21:12 Dose: Not Given Constitutional: Yes: NAD Eyes: Yes: WNL HENT: Yes: WNL Neck: Yes: WNL Cardiovascular: Yes: Regular Rate and Rhythm, S1, S2 Respiratory: Yes: CTA Bilaterally Gastrointestinal: Yes: Normal Bowel Sounds, Soft Extremities: Yes: WNL Edema: No Labs: Laboratory Results - last 24 hr 01/07/18 01/08/18 01/08/18 15:15 06:00 06:00 WBC 3.3 L RBC 2.94 L Hgb 8.9 L Hct 27.5 L MCV 93.5 MCH 30.2 MCHC 32.3 RDW 17.5 H Plt Count 131 L MPV 7.3 L Sodium 139 138 Potassium 3.6 4.0 Chloride 103 104 Carbon Dioxide 27 27 Anion Gap 10 8 BUN 3 L 3 L Creatinine 0.4 L 0.4 L Creat Clearance w eGFR > 60 > 60 Random Glucose 91 85 Calcium 8.6 9.2 Magnesium 1.9 2.0 Total Bilirubin 0.2 AST 19 ALT 21 Alkaline Phosphatase 84 Total Protein 6.6 Albumin 2.2 L Problem List - Problems (1) Pericardial effusion Code(s): I31.3 - PERICARDIAL EFFUSION (NONINFLAMMATORY) (2) Pneumonia Code(s): J18.9 - PNEUMONIA, UNSPECIFIED ORGANISM (3) Endometrial malignant neoplasm Code(s): C54.1 - MALIGNANT NEOPLASM OF ENDOMETRIUM (4) Lung metastases Code(s): C78.00 - SECONDARY MALIGNANT NEOPLASM OF UNSPECIFIED LUNG Assessment/Plan Pneumonia - r/o Post obstructive Metastatic Endometrial Cancer to lung, brain Pericardial Effusion h/o DVT - antibiotics as ID - pain control - O2 as needed - anticoagulation - D/C plannning Dr Rea Problem List - Problems (1) Pericardial effusion Code(s): I31.3 - PERICARDIAL EFFUSION (NONINFLAMMATORY) (2) Pneumonia Code(s): J18.9 - PNEUMONIA, UNSPECIFIED ORGANISM (3) Endometrial malignant neoplasm Code(s): C54.1 - MALIGNANT NEOPLASM OF ENDOMETRIUM (4) Cancer associated pain Code(s): G89.3 - NEOPLASM RELATED PAIN (ACUTE) (CHRONIC) (5) Lung metastases Code(s): C78.00 - SECONDARY MALIGNANT NEOPLASM OF UNSPECIFIED LUNG (6) Tachycardia Code(s): R00.0 - TACHYCARDIA, UNSPECIFIED
== END 2018-01-08 14:45 | disposition home health service (06) | DRG 194 ==
LOC: JER 17:38 → JERBED 20:08 → J4S 21:51
PROVIDERS: ADMIT Internal Medicine; ATTEND Family Medicine
DX: J18.9 Pneumonia, unspecified organism (principal); C78.00 Secondary malignant neoplasm of unspecified lung; C79.31 Secondary malignant neoplasm of brain; J90 Pleural effusion, not elsewhere classified; E87.6 Hypokalemia; C54.1 Malignant neoplasm of endometrium; Z88.0 Allergy status to penicillin; R05 Cough; R59.9 Enlarged lymph nodes, unspecified; Z86.718 Personal history of other venous thrombosis and embolism; Z90.710 Acquired absence of both cervix and uterus; G62.9 Polyneuropathy, unspecified; G89.3 Neoplasm related pain (acute) (chronic); K29.70 Gastritis, unspecified, without bleeding; K20.9 Esophagitis, unspecified; R19.7 Diarrhea, unspecified
CPT/HCPCS: 36415; 71045-TC-FY; 71275-TC; 80048; 80053; 82803; 83605; 83735; 84100; 84484; 85025; 85027; 85610; 85730; 87040; 87070; 87205; 87899; 93005; 93010; 93306-TC; 94761; 99281-25; J0131; J7030

== ENCOUNTER 2018-02-04 09:48 | Inpatient (IN) | payer OTHER ==
[2018-02-04] MEDS ORDERED: SODIUM CHLORIDE 1,000 ML IV STA (10:14)
[2018-02-04] MEDS ORDERED: ONDANSETRON 4 MG TABLET PO ONE (10:14)
[2018-02-04] MEDS ORDERED: morphine CARPU-JECT 4 MG/1 ML DISP.SYRIN IVPUSH ONE ×2 (10:14→14:16)
[2018-02-04] MEDS ORDERED: ONDANSETRON 4 MG/2 ML VIAL ONE ×3 (10:22→16:39)
[2018-02-04] MEDS ORDERED: morphine SULFATE 4 MG/ML VIAL ONE ×2 (10:22→14:28)
--- NOTE | 2018-02-04 10:31 | PDOC ---
History of Present Illness - General Chief Complaint: Pain Stated Complaint: PAIN Time Seen by Provider: 02/04/18 09:54 - History of Present Illness Initial Comments: 02/04/18 10:26 The patient is a 57 year old female with a significant past medical history of stage 4 endometrial ca w/ mets to lungs and brain (on chemo), DVT (on lovenox) and GERD who presents to the emergency department with intractable pain. Pt reports pain all over her body, from her head to her lungs and extremities. Pt' s family member reports that pt has had this pain ever since initiating immunotherapy. Pt denies any changes in the pain but states her pain medication is not controlling it. The patient has been oxy 5mg every 3 hours. She has also been experiencing some difficulty eating and swallowing food secondary to pain. Pt endorses associated nausea and vomiting. 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) Cardiac Disorders: Yes (tachycardia) CVA: No COPD: No CHF: No Dementia: No Diabetes: No GI Disorders: Yes (GERD) Disorders: No HTN: No Hypercholesterolemia: No Liver Disease: No Seizures: No Thyroid Disease: No - Surgical History Abdominal Surgery: Yes (JEOVANNY) Appendectomy: No Cardiac Surgery: No Cholecystectomy: No Lung Surgery: No Neurologic Surgery: No - Suicide/Smoking/Psychosocial Hx Smoking History: Never smoked Have you smoked in the past 12 months: No Information on smoking cessation initiated: No Hx Alcohol Use: No Drug/Substance Use Hx: No Substance Use Type: None Hx Substance Use Treatment: No Review of Systems - Review of Systems Comments:: 02/04/18 10:30 GENERAL/CONSTITUTIONAL: No fever or chills. No weakness. HEAD, EYES, EARS, NOSE AND THROAT: No change in vision. No ear pain or discharge. CARDIOVASCULAR: No chest pain, no shortness of breath, no loss of consciousness RESPIRATORY:(+)coughing, No wheezing, or hemoptysis. GASTROINTESTINAL: (+)nausea, vomiting. No diarrhea or constipation. GENITOURINARY: No dysuria, frequency, or change in urination. MUSCULOSKELETAL: (+)diffuse body pain. No joint or muscle swelling. No neck or back pain. SKIN: No rash NEUROLOGIC: No vertigo, no change in strength/sensation. ENDOCRINE: No increased thirst. No abnormal weight change. HEMATOLOGIC/LYMPHATIC: No anemia, easy bleeding, or history of blood clots. ALLERGIC/IMMUNOLOGIC: No hives or skin allergy. *Physical Exam - Vital Signs Last Vital Signs Temp Pulse Resp BP Pulse Ox 98.0 F 110 H 16 118/82 100 02/04/18 09:48 02/04/18 09:48 02/04/18 09:48 02/04/18 09:48 02/04/18 09:48 - Physical Exam Comments: 02/04/18 10:31 "GENERAL: Awake, alert, and fully oriented, in no acute distress. HEAD: No signs of trauma EYES: PERRLA, EOMI, sclera anicteric, conjunctiva clear ENT: Auricles normal inspection, hearing grossly normal, nares patent, oropharynx clear without exudates. Moist mucosa NECK: Nontender, no stepoffs, Normal ROM, supple, no lymphadenopathy, JVD, or masses LUNGS: Breath sounds equal, clear to auscultation bilaterally. No wheezes, and no crackles HEART: Regular rate and rhythm, normal S1 and S2, no murmurs, rubs or gallops ABDOMEN: + diffuse tenderness, nondistended, normoactive bowel sounds. No guarding, no rebound. No masses EXTREMITIES: Normal range of motion, no edema. No clubbing or cyanosis. No cords, erythema, or tenderness NEUROLOGICAL: Cranial nerves II through XII intact. 5/5 strength and sensation in all extremities, Normal speech, normal gait, normal cerebellar function SKIN: Warm, Dry, normal turgor, no rashes or lesions noted. Moderate Sedation - Procedure Monitoring Vital Signs: Procedure Monitoring Vital Signs Temperature 98.0 F 02/04/18 09:48 Pulse Rate 110 H 02/04/18 09:48 Respiratory Rate 16 02/04/18 09:48 Blood Pressure 118/82 02/04/18 09:48 O2 Sat by Pulse Oximetry (%) 100 02/04/18 09:48 Heart Score/ECG Review - ECG Impressions Comment:: 02/04/18 10:31 Sinus tachy, no DANIA/STDs, no TWIs, axis wnl, intervals wnl, rate 102 ED Treatment Course - LABORATORY CBC & Chemistry Diagram: 02/04/18 09:55 02/04/18 10:20 - RADIOLOGY Radiology Studies Ordered: Category Date Time Status ABDOMEN & PELVIS CT WITH CONTR [CT] Stat CT Scan 02/04/18 10:[address] WITH CONTRAST [CT] Stat CT Scan 02/04/18 10:15 Ordered Medical Decision Making - Medical Decision Making 02/04/18 10:31 57 F with h/o metastatic endometrial CA, presenting with intractable diffuse pain to head, throat, chest, and body. Pt with h/o post-obstructive PNA 1 month ago 2/2 lung met. Pt also with abdominal tenderness on exam. No fevers currently. - Labs - CT head - CT C/A/P w/ contrast - IVF, pain control 02/04/18 14:[address] shows new liver met, otherwise unremarkable. Pt admitted to Dr. Olivia *DC/Admit/Observation/Transfer Diagnosis at time of Disposition: Cancer associated pain - Discharge Dispostion Decision to Admit order: Yes - Referrals - Patient Instructions - Post Discharge Activity - Attestations Physician Attestion: 02/04/18 14:21 I, Dr. Todd Sparks MD, attest that this document has been prepared under my direction and personally reviewed by me in its entirety. I further attest, that it accurately reflects all work, treatment, procedures and medical decision -making performed by me.
[2018-02-04 11:07] LABS: BASO % 0.7 % (0-2.0); EOS % 0.7 % (0-4.5); HEMATOCRIT 32.9 % (32.4-45.2); HEMOGLOBIN 10.6 GM/dL (10.7-15.3); MCH 30.5 pg (25.7-33.7); MCHC 32.3 g/dl (32.0-36.0); MEAN CELL VOLUME 94.3 fl (80-96); MEAN PLT VOLUME 8.1 fl (7.5-11.1); MONO % 12.9 % (3.8-10.2); NEUT % 60.7 % (42.8-82.8); PLATELET COUNT 226 K/MM3 (134-434); RBC 3.49 M/mm3 (3.60-5.2); RDW 17.3 % (11.6-15.6); WHITE BLOOD COUNT 5.1 K/mm3 (4.0-10.0)
[2018-02-04 11:26] LABS: ALBUMIN 2.9 g/dl (3.4-5.0); ALK PHOS 81 U/L (45-117); ANION GAP 8 MMOL/L (8-16); BILIRUBIN,TOTAL 0.4 mg/dL (0.2-1); BLOOD UREA NITROGEN 5 mg/dL (7-18); CALCIUM 9.5 mg/dL (8.5-10.1); CHLORIDE 98 mmol/L (98-107); CO2 28 mmol/L (21-32); CREATININE 0.6 mg/dL (0.55-1.3); GLUCOSE,RANDOM 108 mg/dL (74-106); LIPASE 225 U/L (73-393); POTASSIUM 4.3 mmol/L (3.5-5.1); SGOT/AST 36 U/L (15-37); SGPT/ALT 18 U/L (13-61); SODIUM 133 mmol/L (136-145); TOT PROT 7.8 g/dl (6.4-8.2)
[2018-02-04 11:28] LABS: URINE APPEARANCE SLCLOUDY; URINE BILIRUBIN NEGATIVE (<2.0 mg/dL); URINE COLOR YELLOW; URINE GLUCOSE (UA) NEGATIVE (NEGATIVE); URINE KETONE NEGATIVE (NEGATIVE); URINE LEUK ESTERASE NEGATIVE (NEGATIVE); URINE NITRITE NEGATIVE (NEGATIVE); URINE PROTEIN NEGATIVE (NEGATIVE); URINE UROBILINOGEN NEGATIVE mg/dL (0.2-1.0)
--- NOTE | 2018-02-04 12:45 | EKG ---
Test Reason : Blood Pressure : / mmHG Vent. Rate : 102 BPM Atrial Rate : 098 BPM P-R Int : 000 ms QRS Dur : 078 ms QT Int : 534 ms P-R-T Axes : 000 -08 043 degrees QTc Int : 695 ms nsr NONSPECIFIC T WAVE ABNORMALITY PROLONGED QT ABNORMAL ECG WHEN COMPARED WITH ECG OF 03-JAN-2018 17:57, JUNCTIONAL RHYTHM HAS REPLACED SINUS RHYTHM Confirmed by RENEE SPEARS, RONALD ([id number]) on 02/04/2018 12:45:13 PM Referred By: Confirmed By:RONALD DURAN MD
[2018-02-04] MEDS: DEXTROSE 5%-NORMAL SALINE 1,000 ML IV SCH (14:31)
[2018-02-04] MEDS ORDERED: morphine SULFATE 4 MG/ML VIAL IVPUSH PRN (15:55)
[2018-02-04] MEDS ORDERED: ACETAMINOPHEN 325 MG TABLET (FP) PO PRN (15:55)
[2018-02-04] MEDS ORDERED: ONDANSETRON 4 MG/2 ML VIAL IVPB PRN (15:55)
[2018-02-04] MEDS ORDERED: PANTOPRAZOLE SODIUM 40 MG in SODIUM CHLORIDE 100 ML IVPB SCH (16:45)
--- NOTE | 2018-02-04 16:54 | HP ---
Admitting History and Physical - Primary Care Physician PCP: Georgina Olivia - Admission Chief Complaint: Intractable generalized pain. Metastatic Endometrial Ca History of Present Illness: The patient is a 57 year old female with a significant past medical history of stage 4 endometrial ca w/ mets to lungs and brain (on chemo), DVT (on lovenox) and GERD who presents to the emergency department with intractable pain. Pt reports pain all over her body, from her head to her lungs and extremities. Pt' s family member reports that pt has had this pain ever since initiating immunotherapy. Pt denies any changes in the pain but states her pain medication is not controlling it. The patient has been oxy 5mg every 3 hours. She has also been experiencing some difficulty eating and swallowing food secondary to pain. Pt endorses associated nausea and vomiting. Primary oncologist at [facility] [place] Primary Neurologist at [facility] [place] Last U/S dopple done in 12/2017 showed RLE DVT-being treated with Lovenox O/P Last Bone density-osteopenia Last MRI w/wo contrast at [facility] [place] on 01/19/18 showed 11 new metastases and some decreased metastases CT abd/pel on 12/01/17 showed no liver metastasis History Source: Patient, Family Member - Past Medical History Cardiovascular: Yes: Deep Vein Thrombosis Pulmonary: Yes: Pulmonary Embolus (DVT) Heme/Onc: Yes: Cancer (endometrial cancer) - Past Surgical History Past Surgical History: Yes: Hysterectomy (johnna/bso 8 years ago) - Smoking History Smoking history: Never smoked Have you smoked in the past 12 months: No - Alcohol/Substance Use Hx Alcohol Use: No - Social History ADL: Independent History of Recent Travel: No Home Medications - Allergies Allergies/Adverse Reactions: Allergies Allergy/AdvReac Type Severity Reaction Status Date / Time Penicillins Allergy Rash Verified 02/04/18 09:50 - Home Medications Home Medications: Ambulatory Orders Oxycodone HCl 5 mg PO Q4H PRN 01/04/18 Enoxaparin [Lovenox -] 60 mg SQ DAILY 02/04/18 Physical Examination Vital Signs: Vital Signs Temperature 97.1 F L 02/04/18 15:14 Pulse Rate 90 02/04/18 15:14 Respiratory Rate 18 02/04/18 15:14 Blood Pressure 125/70 02/04/18 15:14 O2 Sat by Pulse Oximetry (%) 96 12/05/18 15:14 Labs: CBC, BMP 02/04/18 09:55 02/04/18 10:20
[2018-02-04] MEDS ORDERED: HYDROmorphone HCL CARPU-JECT 2 MG/1 ML DISP.SYRIN IVPB ONE (17:10)
[2018-02-04] MEDS: HYDROmorphone HCl 2 MG/ML VIAL IVPB PRN (17:32)
[2018-02-04] MEDS: METOCLOPRAMIDE HCL INJECTION 10 MG/2 ML VIAL IVPUSH SCH ×2 (17:35→21:43)
[2018-02-04] MEDS: PANTOPRAZOLE SODIUM 40 MG VIAL IVPB SCH (17:37)
[2018-02-04 17:52] VITALS: BMI 26.4
[2018-02-04] MEDS: METHYL SALICYLATE/MENTHOL OINT 30 GM TUBE TP SCH ×2 (18:37→23:17)
[2018-02-04] MEDS ORDERED: guaiFENesin/CODEINE 5 ML UNIT-DOSE CUPS PO PRN (18:58)
--- NOTE | 2018-02-04 19:08 | CON.PULM ---
Consult Consult Specialty:: PULM/CCM Referred by:: MANGO Reason for Consultation:: Lung mass / cough - History of Present Illness Chief Complaint: Pain History of Present Illness: 57 F, widely metastatic endometrial CA (lung, mediastinum, skin, and multipe brain mets). Complicated by LLE VTE on Lovenox 60mg BID. Never had documented PE. Recent admission for a pericardial effusion (etiology unclear but has improved from previous) and a possible STEVIE post-obstructive PNA. S/P 6 cycles of Chemtherapy, focused brain RT, Mediastinal RT, right skin scalp RT. Hormonal maintenance therapy that appears to be causing diffuse pain. Refractory cough. No hemoptysis. Copious clear sputum. No fever or chills. No travel history or sick contacts. - History Source History Provided By: Family Member, Medical Record Limitations to Obtaining History: Clinical Condition - Past Medical History Cardio/Vascular: Yes: Deep Vein Thrombosis ...: No - Past Surgical History Past Surgical History: Yes: Hysterectomy (johnna/bso 8 years ago) - Alcohol/Substance Use Hx Alcohol Use: No - Smoking History Smoking history: Never smoked Have you smoked in the past 12 months: No - Social History Usual Living Arrangement: With Spouse ADL: Independent History of Recent Travel: No Home Medications - Allergies Allergies/Adverse Reactions: Allergies Allergy/AdvReac Type Severity Reaction Status Date / Time Penicillins Allergy Rash Verified 02/04/18 09:50 - Home Medications Home Medications: Ambulatory Orders Oxycodone HCl 5 mg PO Q4H PRN 01/04/18 Enoxaparin [Lovenox -] 60 mg SQ DAILY 02/04/18 Review of Systems - Review of Systems Constitutional: reports: Lethargy, Loss of Appetite, Malaise, Unintentional Wgt. Loss, Weakness. denies: Chills, Fever, Night Sweats Eyes: reports: Photophobia HENT: reports: Difficult Swallowing, Throat Pain. denies: Epistaxis Neck: reports: Decreased ROM, Pain on Movement, Stiffness Cardiovascular: reports: Chest Pain, Shortness of Breath. denies: Edema, Palpitations Respiratory: reports: Cough, SOB, SOB on Exertion. denies: Hemoptysis, Snoring , Wheezing Gastrointestinal: reports: Bloating, Constipation, Dysphagia, Indigestion, Vomiting Genitourinary: reports: No Symptoms Breasts: reports: No Symptoms Reported Musculoskeletal: reports: Back Pain, Extremity Pain, Joint Pain, Muscle Pain, Muscle Cramps, Muscle Weakness Integumentary: reports: No Symptoms Neurological: reports: No Symptoms Endocrine: reports: No Symptoms Hematology/Lymphatic: reports: No Symptoms Psychiatric: reports: Altered Sleep Pattern Physical Exam Vital Sings: Vital Signs Temperature 98.2 F 02/04/18 17:45 Pulse Rate 90 02/04/18 17:45 Respiratory Rate 18 02/04/18 17:45 Blood Pressure 134/71 02/04/18 17:45 O2 Sat by Pulse Oximetry (%) 97 02/04/18 17:57 Constitutional: Yes: Mild Distress, Thin Eyes: Yes: Conjunctiva Clear, EOM Intact HENT: Yes: Normocephalic Neck: Yes: Supple, Trachea Midline Cardiovascular: Yes: Tachycardia Respiratory: Yes: Cough, Diminished, Rhonchi. No: Accessory Muscle Use, Rales, Stridor, Tachypnea, Wheezes ...Inspection: Yes: WNL ...Clubbing: No Gastrointestinal: Yes: Normal Bowel Sounds, Soft. No: Palpable Mass, Pulsatile Mass Musculoskeletal: Yes: Back Pain, Joint Stiffness, Muscle Pain Extremities: Yes: WNL Edema: No Peripheral Pulses WNL: Yes Integumentary: Yes: Rash. No: Jaundice, Petechiae Neurological: Yes: Alert, Oriented Psychiatric: Yes: Alert, Oriented Labs: CBC, BMP 02/04/18 09:55 02/04/18 10:20 Imaging - Results Chest X-ray: Report Reviewed, Image Reviewed Cat Scan: Report Reviewed, Image Reviewed Problem List - Problems (1) Cancer associated pain Code(s): G89.3 - NEOPLASM RELATED PAIN (ACUTE) (CHRONIC) (2) Pericardial effusion Code(s): I31.3 - PERICARDIAL EFFUSION (NONINFLAMMATORY) (3) Endometrial malignant neoplasm Code(s): C54.1 - MALIGNANT NEOPLASM OF ENDOMETRIUM (4) Lung metastases Code(s): C78.00 - SECONDARY MALIGNANT NEOPLASM OF UNSPECIFIED LUNG (5) Tachycardia Code(s): R00.0 - TACHYCARDIA, UNSPECIFIED Assessment/Plan Dilaudid for pain control O2 as needed No ABX seems indicated, do not suspect post-obstructive PNA Swallow evaluation IVF Robitussin QHS and PRN Lovenox 60mg BID PO as tolerated
[2018-02-04] MEDS: guaiFENesin/CODEINE 5 ML UNIT-DOSE CUPS PO SCH (21:43)
[2018-02-04] MEDS: DOCUSATE SODIUM 100 MG CAPSULE (FP) PO SCH (21:43)
[2018-02-04] MEDS: ENOXAPARIN NA (PORCINE) 60 MG/0.6 ML DISP.SYRIN SQ SCH (21:44)
[2018-02-05] MEDS: ACETAMINOPHEN/CAFFEINE/BUTALBITAL 1 TAB PO PRN ×2 (00:51→09:31)
[2018-02-05] MEDS: METOCLOPRAMIDE HCL INJECTION 10 MG/2 ML VIAL IVPUSH SCH ×2 (02:52→08:56)
[2018-02-05] MEDS: DOCUSATE SODIUM 100 MG CAPSULE (FP) PO SCH ×4 (06:25→21:54)
[2018-02-05] MEDS: DEXTROSE 5%-NORMAL SALINE 1,000 ML IV SCH ×2 (06:50→14:35)
--- NOTE | 2018-02-05 07:47 | CONSULT ---
Consult Consult Specialty:: Oncology Referred by:: Dr. Rahman Reason for Consultation:: metastatic endometrial ca - History of Present Illness History of Present Illness: Diagnosed with endometrial ca 8 years ago. Treated with surgery and RT. Disease free until past year when patient developed recurrence with pulmonary, scalp and brain mets. Patient was treated with chemotherapy with taxol and carboplatinum x 6. She received SRS to multiple brain mets and RT to pulmonary mets. She was placed on letrozole post chemotherapy. 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) Cardio/Vascular: Yes: Deep Vein Thrombosis ...: No - Past Surgical History Past Surgical History: Yes: Hysterectomy (johnna/bso 8 years ago) Additional Surgical History: right carpal tunnel surgery - Alcohol/Substance Use Hx Alcohol Use: No - Smoking History Smoking history: Never smoked Have you smoked in the past 12 months: No - Social History Usual Living Arrangement: With Spouse ADL: Independent History of Recent Travel: No Home Medications - Allergies Allergies/Adverse Reactions: Allergies Allergy/AdvReac Type Severity Reaction Status Date / Time Penicillins Allergy Rash Verified 02/04/18 09:50 - Home Medications Home Medications: Ambulatory Orders Oxycodone HCl 5 mg PO Q4H PRN 01/04/18 Enoxaparin [Lovenox -] 60 mg SQ DAILY 02/04/18 Family Disease History - Family Disease History Family Disease History: Other: Grandparent (blood transfusion ), Father (stomach cancer ) Other Family History: niece- breast cancer Review of Systems - Review of Systems Constitutional: reports: Loss of Appetite, Malaise, Night Sweats, Weakness. denies: Fever Eyes: denies: Double Vision HENT: reports: Difficult Swallowing, Throat Pain Neck: denies: Pain on Movement, Swollen Glands Cardiovascular: reports: Chest Pain, Shortness of Breath Respiratory: reports: SOB, SOB on Exertion, Other (cough .sputum). denies: Hemoptysis Genitourinary: denies: Burning, Dysuria, Flank Pain Breasts: reports: No Symptoms Reported Musculoskeletal: reports: Extremity Pain, Joint Pain, Muscle Pain, Muscle Cramps Integumentary: denies: Eczema, Rash Neurological: reports: Headache Endocrine: denies: Excessive Sweating Psychiatric: reports: No Symptoms Physical Exam Vital Signs: Vital Signs Temperature 98.5 F 02/05/18 06:00 Pulse Rate 93 H 02/05/18 06:00 Respiratory Rate 18 02/05/18 06:00 Blood Pressure 127/79 02/05/18 06:00 O2 Sat by Pulse Oximetry (%) 97 02/04/18 21:00 Constitutional: Yes: Mild Distress Eyes: Yes: PERRL HENT: Yes: Normocephalic, Other (coated tongue). No: Tonsillar Exudate Neck: Yes: Supple. No: Lymphadenopathy, Tenderness Cardiovascular: Yes: Regular Rate and Rhythm Respiratory: Yes: Cough, Rhonchi Gastrointestinal: Yes: Normal Bowel Sounds, Soft. No: Ascites, Hepatomegaly Renal/: No: CVA Tenderness - Left, CVA Tenderness - Right Breast(s): Yes: WNL, Left, Right Musculoskeletal: Yes: Back Pain, Muscle Pain, Muscle Weakness Extremities: Yes: Calf Tenderness Edema: No Neurological: Yes: Numbness, Weakness Psychiatric: Yes: WNL Labs: CBC, BMP 02/04/18 09:55 02/04/18 10:20 Imaging - Results Cat Scan: Report Reviewed, Image Reviewed Problem List - Problems (1) Endometrial malignant neoplasm Assessment/Plan: History of endometrial ca treated 8 years ago with surgery and RT. Free of disease until this year when she developed pulmonary, scalp and brain mets. Brain mets treated with SRS. Endometrial ca treated with 6 cycles of taxol and carboplatinum followed by letrozole. Lung mets treated with RT. Currently with recurrent new brain mets and severe headache with nausea and vomiting. Has difficulty with swallowing and painful swallowing. Has diffuse muscle pains. Has cough and sputum production. Has anorexia with recent weight loss. 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 Suspect headache and perhaps nausea and emesis is related to TREASURY ASSOCIATE edema. Would consider beginning decadron therapy for edema. Patient has dysphagia with coated tongue. Possible thrush Would begin diflucan therapy. It is 6 months post mediastinal and lung RT so some dysphagia and "food getting stuck" may be post RTeffect . May need GI assessment but would await effect of diflucan. Has diffuse myalgias and arthralgias which is a common side effect of letrozole. Now discontinued. Would consider bone scan although doubt bone mets. Would begin Megace 40 mg qid as treatment for endometrial ca. It might also help anorexia. Will need whole brain RT after initial imaging . In [facility] of [facility] records - tumor was EGFR negative and PDL-1 negative. The latter was done only with scant cancer cells such that in the future, it would be worth repeating if tissue is easily accessed. No mention of MSI status. It would be good to know this as a potential treatment option in the future. Will discuss. Thanks Code(s): C54.1 - MALIGNANT NEOPLASM OF ENDOMETRIUM
[2018-02-05] MEDS: HYDROmorphone HCl 2 MG/ML VIAL IVPB PRN ×3 (08:51→20:12)
[2018-02-05] MEDS: PANTOPRAZOLE SODIUM 40 MG VIAL IVPB SCH (09:31)
[2018-02-05] MEDS: ENOXAPARIN NA (PORCINE) 60 MG/0.6 ML DISP.SYRIN SQ SCH ×2 (09:31→21:46)
[2018-02-05] MEDS: METHYL SALICYLATE/MENTHOL OINT 30 GM TUBE TP SCH ×2 (09:32→21:46)
--- NOTE | 2018-02-05 09:32 | PN ---
Progress Note, Physician Chief Complaint: Diagnosed with endometrial ca 8 years ago. Treated with surgery and RT. Disease free until past year when patient developed recurrence with pulmonary, scalp and brain mets. Patient was treated with chemotherapy with taxol and carboplatinum x 6. She received SRS to multiple brain mets and RT to pulmonary mets. She was placed on letrozole post chemotherapy. History of DVT on Lovenox BID She has a trivial pericardial effusion that was noted last admission and was recently re-imaged with echo in office several days ago--remains trivial and with no evidence of tamponade. She was admitted for intractable nausea, vomiting and pain. On ECG, QTc noted to be prolonged and she is on Zofran. She denies palpitations, dizziness, denies syncope. History of Present Illness: Heme/Onc note reviewed. - Current Medication List Current Medications: Active Medications Acetaminophen (Tylenol -) 650 mg PO Q6H PRN PRN Reason: PAIN OR FEVER Acetaminophen/Butalbital/Caffeine (Fioricet -) 1 tablet PO Q4H PRN PRN Reason: HEADACHE Last Admin: 02/05/18 00:51 Dose: 1 tablet Docusate Sodium (Colace -) 100 mg PO TID [facility] Last Admin: 02/05/18 06:25 Dose: 100 mg Enoxaparin Sodium (Lovenox -) 60 mg SQ BID [facility] Last Admin: 02/04/18 21:44 Dose: 60 mg Guaifenesin/Codeine Phosphate (Robitussin Ac -) 5 ml PO HS [facility] Last Admin: 02/04/18 21:43 Dose: 5 ml Guaifenesin/Codeine Phosphate (Robitussin Ac -) 5 ml PO Q8H PRN PRN Reason: COUGH Hydromorphone HCl (Dilaudid Vial -) 1 mg IVPB Q4H PRN PRN Reason: PAIN LEVEL 6-10 Last Admin: 02/05/18 08:51 Dose: 1 mg Dextrose/Sodium Chloride (D5-Ns -) 1,000 mls @ 75 mls/hr IV ASDIR [facility] Last Admin: 02/05/18 06:50 Dose: 75 mls/hr Lorazepam (Ativan Injection -) 0.5 mg IVPUSH Q6H PRN PRN Reason: NAUSEA AND/OR VOMITING Methyl Salicylate (Nehemiah-Caceres -) 1 applic TP BID [facility] Last Admin: 02/04/18 23:17 Dose: 1 applic Pantoprazole Sodium (Protonix Iv) 40 mg IVPB DAILY [facility] Last Admin: 02/04/18 17:37 Dose: 40 mg Polyethylene Glycol (Miralax (For Daily Use) -) 17 gm PO DAILY [facility] - Objective Vital Signs: Vital Signs Temperature 98.5 F 02/05/18 06:00 Pulse Rate 93 H 02/05/18 06:00 Respiratory Rate 18 02/05/18 06:00 Blood Pressure 127/79 02/05/18 06:00 O2 Sat by Pulse Oximetry (%) 96 02/05/18 09:00 Constitutional: Yes: No Distress Cardiovascular: Yes: Regular Rate and Rhythm Respiratory: Yes: CTA Bilaterally (no rales or wheezing.) Gastrointestinal: Yes: Soft (NT) Edema: No Neurological: Yes: Alert, Oriented ...Motor Strength: WNL Labs: CBC, BMP 02/04/18 09:55 02/04/18 10:20 - ....Imaging EKG: Image Reviewed Assessment/Plan IMP: Metastatic endometrial cancer Hx of DVT on Lovenox Small, stable pericardial effusion Prolonged QT interval REC: 1. Tele monitoring as QTc is prolonged. She requires Zofran for Rx of nausea, which can prolong QT. 2. Keep K+ > 4, Mg2+ > 2 3. Try and minimize use of QT prolonging agents. This will be difficult as she requires opiates for control of cancer associated pain and anti-emetics for her chronic nausea. Will follow.
[2018-02-05] MEDS: POLYETHYLENE GLYCOL 3350 119 GM BTL PO SCH (09:33)
--- NOTE | 2018-02-05 09:33 | CONSULT ---
Consult - text type - Consultation Consultation Note: Neurology History of Present Illness: 57 year old female with a significant past medical history of stage 4 endometrial ca w/ mets to lungs and brain (chemo), DVT (on lovenox) and GERD who presented to the emergency department with intractable pain. Per notes, she reported pain all over her body, from her head to her lungs and extremities. Limited relief with current pain medication regiment. She has also been experiencing some difficulty eating and swallowing food secondary to pain. Pt endorsed associated nausea and vomiting. Consulted for headaches, initially seen with Dr. ashley at bedside, nephew of patient. Is ordered for fioricet which should be effective for her tension type headaches (bilateral, frontotemporal, pressure like). Is written for PRN and advised nurse to provide medication as needed and ask patient whenever needed. Gets her care at [facility]. - Past Medical History Cardiovascular: Yes: Deep Vein Thrombosis Pulmonary: Yes: Pulmonary Embolus (DVT) Heme/Onc: Yes: Cancer (endometrial cancer) - Past Surgical History Past Surgical History: Yes: Hysterectomy (johnna/bso 8 years ago) - Smoking History Smoking history: Never smoked Have you smoked in the past 12 months: No - Alcohol/Substance Use Hx Alcohol Use: No - Social History ADL: Independent History of Recent Travel: No Active Medications Acetaminophen (Tylenol -) 650 mg PO Q6H PRN PRN Reason: PAIN OR FEVER Acetaminophen/Butalbital/Caffeine (Fioricet -) 1 tablet PO Q4H PRN PRN Reason: HEADACHE Last Admin: 02/05/18 09:31 Dose: 1 tablet Docusate Sodium (Colace -) 100 mg PO TID [facility] Last Admin: 02/05/18 06:25 Dose: 100 mg Enoxaparin Sodium (Lovenox -) 60 mg SQ BID [facility] Last Admin: 02/05/18 09:31 Dose: 60 mg Guaifenesin/Codeine Phosphate (Robitussin Ac -) 5 ml PO HS [facility] Last Admin: 02/04/18 21:43 Dose: 5 ml Guaifenesin/Codeine Phosphate (Robitussin Ac -) 5 ml PO Q8H PRN PRN Reason: COUGH Hydromorphone HCl (Dilaudid Vial -) 1 mg IVPB Q4H PRN PRN Reason: PAIN LEVEL 6-10 Last Admin: 02/05/18 08:51 Dose: 1 mg Dextrose/Sodium Chloride (D5-Ns -) 1,000 mls @ 75 mls/hr IV ASDIR [facility] Last Admin: 02/05/18 06:50 Dose: 75 mls/hr Lorazepam (Ativan Injection -) 0.5 mg IVPUSH Q6H PRN PRN Reason: NAUSEA AND/OR VOMITING Methyl Salicylate (Nehemiah-Caceres -) 1 applic TP BID [facility] Last Admin: 02/05/18 09:32 Dose: Not Given Nystatin (Nystatin Oral Suspension -) 500,000 units PO Q6HPO [facility] Pantoprazole Sodium (Protonix Iv) 40 mg IVPB DAILY [facility] Last Admin: 02/05/18 09:31 Dose: 40 mg Polyethylene Glycol (Miralax (For Daily Use) -) 17 gm PO DAILY [facility] Last Admin: 02/05/18 09:33 Dose: 17 grams Review of Systems GENERAL/CONSTITUTIONAL: No fever or chills. No weakness. HEAD, EYES, EARS, NOSE AND THROAT: No change in vision. No ear pain or discharge. CARDIOVASCULAR: No chest pain, no shortness of breath, no loss of consciousness RESPIRATORY:(+)coughing, No wheezing, or hemoptysis. GASTROINTESTINAL: (+)nausea, vomiting. No diarrhea or constipation. GENITOURINARY: No dysuria, frequency, or change in urination. MUSCULOSKELETAL: (+)diffuse body pain. No joint or muscle swelling. No neck or back pain. SKIN: No rash NEUROLOGIC: No vertigo, no change in strength/sensation. ENDOCRINE: No increased thirst. No abnormal weight change. HEMATOLOGIC/LYMPHATIC: No anemia, easy bleeding, or history of blood clots. ALLERGIC/IMMUNOLOGIC: No hives or skin allergy. *Physical Exam - Vital Signs Last Vital Signs Temp Pulse Resp BP Pulse Ox 98.0 F 110 H 16 118/82 100 02/04/18 09:48 02/04/18 09:48 02/04/18 09:48 02/04/18 09:48 02/04/18 09:48 "GENERAL: Awake, alert, and fully oriented, in no acute distress. HEAD: No signs of trauma EYES: PERRLA, EOMI, sclera anicteric, conjunctiva clear ENT: Auricles normal inspection, hearing grossly normal, nares patent, oropharynx clear without exudates. Moist mucosa NECK: Nontender, no stepoffs, Normal ROM, supple, no lymphadenopathy, JVD, or masses LUNGS: Breath sounds equal, clear to auscultation bilaterally. No wheezes, and no crackles HEART: Regular rate and rhythm, normal S1 and S2, no murmurs, rubs or gallops ABDOMEN: + diffuse tenderness, nondistended, normoactive bowel sounds. No guarding, no rebound. No masses EXTREMITIES: Normal range of motion, no edema. No clubbing or cyanosis. No cords, erythema, or tenderness NEUROLOGICAL: Cranial nerves II through XII intact. moves all extremities grossly, speech intact, sensory intact to tactile stim SKIN: Warm, Dry, normal turgor, no rashes or lesions noted. Imaging Last U/S dopple done in 12/2017 showed RLE DVT-being treated with Lovenox O/P Last Bone density-osteopenia Last MRI w/wo contrast at [facility] on 01/19/18 showed 11 new metastases and some decreased metastases CT abd/pel on 12/01/17 showed no liver metastasis CBCD WBC 5.1 K/mm3 (4.0-10.0) 02/04/18 09:55 RBC 3.49 M/mm3 (3.60-5.2) L 02/04/18 09:55 Hgb 10.6 GM/dL (10.7-15.3) L 02/04/18 09:55 Hct 32.9 % (32.4-45.2) D 02/04/18 09:55 MCV 94.3 fl (80-96) 02/04/18 09:55 MCHC 32.3 g/dl (32.0-36.0) 02/04/18 09:55 RDW 17.3 % (11.6-15.6) H 02/04/18 09:55 Plt Count 226 K/MM3 (134-434) D 02/04/18 09:55 MPV 8.1 fl (7.5-11.1) D 02/04/18 09:55 CMP Sodium 133 mmol/L (136-145) L 02/04/18 10:20 Potassium 4.3 mmol/L (3.5-5.1) 02/04/18 10:20 Chloride 98 mmol/L (98-107) 02/04/18 10:20 Carbon Dioxide 28 mmol/L (21-32) 02/04/18 10:20 Anion Gap 8 MMOL/L (8-16) 02/04/18 10:20 BUN 5 mg/dL (7-18) L 02/04/18 10:20 Creatinine 0.6 mg/dL (0.55-1.3) 02/04/18 10:20 Creat Clearance w eGFR > 60 (>60) 02/04/18 10:20 Random Glucose 108 mg/dL (74-106) H 02/04/18 10:20 Calcium 9.5 mg/dL (8.5-10.1) 02/04/18 10:20 Total Bilirubin 0.4 mg/dL (0.2-1) 02/04/18 10:20 AST 36 U/L (15-37) 02/04/18 10:20 ALT 18 U/L (13-61) 02/04/18 10:20 Alkaline Phosphatase 81 U/L (45-117) 02/04/18 10:20 Total Protein 7.8 g/dl (6.4-8.2) 02/04/18 10:20 Albumin 2.9 g/dl (3.4-5.0) L 02/04/18 10:20 CARDIAC ENZYMES Creatine Kinase 73 IU/L (26-192) 02/04/18 10:20 Troponin I < 0.02 ng/ml (0.00-0.05) 02/04/18 10:20 Plan: 57 year old female with a significant past medical history of stage 4 endometrial ca w/ mets to lungs and brain (chemo), DVT (on lovenox) and GERD who presented to the emergency department with intractable pain. Per notes, she reported pain all over her body, from her head to her lungs and extremities. Limited relief with current pain medication regiment. She has also been experiencing some difficulty eating and swallowing food secondary to pain. Pt endorsed associated nausea and vomiting. Consulted for headaches, initially seen with Dr. ashley at bedside, nephew of patient. Is ordered for fioricet which should be effective for her tension type headaches (bilateral, frontotemporal, pressure like). Is written for PRN and advised nurse to provide medication as needed and ask patient whenever needed. Pain mgmt consulted as well. Maintain hydration, increased PO intake as tolerated. Cognitive rest as able. If fioricet not effective would consider alternative medication such as topamax or amitryptiline but would like to try to avoid daily medication and side effect profile.
[2018-02-05] MEDS ORDERED: ENOXAPARIN NA (PORCINE) 60 MG/0.6 ML DISP.SYRIN SQ SCH (10:00)
--- NOTE | 2018-02-05 10:08 | CONSULT ---
Admitting History and Physical - Primary Care Physician PCP: Alie Moscoso - Admission History of Present Illness: Unfortunate 57 y.o. with h/x endometrial ca x 8 years ago with surgery and RT. , with recent developement of pulmonary, scalp and brain mets. Reported to have recurrent new brain mets and severe headache with nausea and vomiting. Pt reports severe pain in throat chest when swallows, with choking,with poor PO intake . "If I'm is forced to eat, I vomit it back up." Pt reports Odynophagia started a month ago. 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) Cardiovascular: Yes: Deep Vein Thrombosis Pulmonary: Yes: Pulmonary Embolus (DVT) ...: No Heme/Onc: Yes: Cancer (endometrial cancer) - Past Surgical History Past Surgical History: Yes: Hysterectomy (johnna/bso 8 years ago) - Advance Directives Advance Directives: Yes: Health Care Proxy - Smoking History Smoking history: Never smoked Have you smoked in the past 12 months: No - Alcohol/Substance Use Hx Alcohol Use: No - Social History ADL: Independent History of Recent Travel: No History - Admission Reason For Visit: NEOPLASM - Diagnostics X-ray: Report Reviewed CT Scan: Report Reviewed - General Mental Status: Alert and Oriented, Awake and Alert, Able to Follow Commands Attention: Intact Ability to Follow Directions: Excellent Head/Neck Control: WFL - Hearing Hearing: Normal Speech Evaluation - Communication Primary Language: NIGERIEN Oral Expression Ability: Yes: No Impairment - Speech Production Able to Make Needs Known: Yes: WNL Intelligibility: Yes: WNL - Speech Characteristics Voice Loudness: Mildly Soft/Quiet Voice Pitch: Yes: Normal Voice Phonatory-based Quality: Yes: Hoarse, Weak, Dysphonia Speech Pattern: Normal Speech Clarity: < 100% Nasal Resonance: Normal Articulation: Yes: Precise Rate of Speech: Intact - Language/Auditory Comprehension Follows: Yes: 2 Stage Simple Commands - Language/Verbal Expression Able to Respond to Simple Queries: Yes: WNL Able to Communicate Wants and Needs: Yes: WNL Functional Communication Status: Yes: WNL - Memory/Perception care home Memory: Yes: WNL Short Term Memory: Yes: WNL - Swallow Evaluation/Bedside Assessment Current Nutritional Intake: Dysphagia Whole, Thin Liquids Oral Secretions: Yes: WFL Dentition: Yes: Adequate, Missing Teeth Facial Symmetry at Rest: Symmetrical Facial Symmetry on Retraction: Symmetrical Facial Movement: Controlled Against Resistance Opening: Normal Against Resistance Closing: Normal Pucker Lips: Normal Smile: Normal Lingual Movement: Normal, Symmetric Lingual Speed of Movement: Normal Lingual Movement Strgth Against Opposition: Normal Lingual Movement Characteristics: Normal Velopharyngeal Movement: Normal Laryngeal Elevation: Impaired Bolus Size: Small Labial Seal: WFL Oral Prep Time: WFL A-P Transit: WFL Pocketing: None Timing of Swallow: Delayed Odynophagia: Pharyngeal, Esophageal Coughing/Throat Clear: Yes (thin liquid) Recommendations - Speech Evaluation, Impression/Plan Impression: Pt with moderate Pharyngeal/esophageal Odynophagia, hopefully related to Lisa which can be easily treated.Possible aspiration on thin and pharyngeal stasis, r/o impaired UES relaxation. Voice weak and mildly dysphonic. Cognitively intact. Case reviewed with Dr. Rea- I'm not sure pt can tolerate Oral Diflucan. MBS to determine. IV Diflucan contraindicated at this time due to very long QT. - Dysphagia Impressions/Plan Swallowing Skills: Impaired Dysphagia Impressions: Ongoing Evaluation, Suspect Aspiration *Silent aspiration: cannot be R/O at bedside Recommendations: MBS w Esophagus (Assess pharyngeal/esophageal structure/ function), Other ( Possible thrush/Concur with Oncology recommendation for diflucan therapy and Megace for possibly improved appetite. Suspect impaired appetite also related to Odynophagia/Dysphagia.) - Recommendations Diet Consistency: NPO (until MBS)
[2018-02-05 11:36] LABS: ALK PHOS 81 U/L (45-117); ANION GAP 8 MMOL/L (8-16); BILIRUBIN,TOTAL 0.3 mg/dL (0.2-1); CALCIUM 9.6 mg/dL (8.5-10.1); CHLORIDE 104 mmol/L (98-107); CO2 27 mmol/L (21-32); CREATININE 0.7 mg/dL (0.55-1.3); GLUCOSE,RANDOM 130 mg/dL (74-106); PHOSPHOROUS 2.4 mg/dL (2.5-4.9); POTASSIUM 3.5 mmol/L (3.5-5.1); SGOT/AST 22 U/L (15-37); SGPT/ALT 17 U/L (13-61); SODIUM 139 mmol/L (136-145); TOT PROT 7.4 g/dl (6.4-8.2)
[2018-02-05] MEDS ORDERED: NYSTATIN 500,000 UNITS/5 ML SUSPENSION PO SCH (12:00)
[2018-02-05] MEDS ORDERED: POTASSIUM CHLORIDE ORAL LIQUID 20 MEQ/15 ML PO ONE (12:12)
[2018-02-05 12:28] LABS: BLOOD UREA NITROGEN 2 mg/dL (7-18)
--- NOTE | 2018-02-05 13:14 | PN ---
Progress Note (short form) - Note Progress Note: not in room gone for barium swallow
[2018-02-05] MEDS: NYSTATIN 500,000 UNITS/5 ML SUSPENSION PO SCH ×2 (14:11→17:29)
--- NOTE | 2018-02-05 14:15 | PN ---
Progress Note, Physician Chief Complaint: patient seen and examined came back from barium swallow complaining of nausea and body pain - Current Medication List Current Medications: Active Medications Acetaminophen (Tylenol -) 650 mg PO Q6H PRN PRN Reason: PAIN OR FEVER Acetaminophen/Butalbital/Caffeine (Fioricet -) 1 tablet PO Q4H PRN PRN Reason: HEADACHE Last Admin: 02/05/18 09:31 Dose: 1 tablet Docusate Sodium (Colace -) 100 mg PO TID [facility] Last Admin: 02/05/18 06:25 Dose: 100 mg Enoxaparin Sodium (Lovenox -) 60 mg SQ BID [facility] Last Admin: 02/05/18 09:31 Dose: 60 mg Guaifenesin/Codeine Phosphate (Robitussin Ac -) 5 ml PO HS [facility] Last Admin: 02/04/18 21:43 Dose: 5 ml Guaifenesin/Codeine Phosphate (Robitussin Ac -) 5 ml PO Q8H PRN PRN Reason: COUGH Hydromorphone HCl (Dilaudid Vial -) 1 mg IVPB Q4H PRN PRN Reason: PAIN LEVEL 6-10 Last Admin: 02/05/18 08:51 Dose: 1 mg Dextrose/Sodium Chloride (D5-Ns -) 1,000 mls @ 75 mls/hr IV ASDIR [facility] Last Admin: 02/05/18 06:50 Dose: 75 mls/hr Lorazepam (Ativan Injection -) 0.5 mg IVPUSH Q6H PRN PRN Reason: NAUSEA AND/OR VOMITING Methyl Salicylate (Nehemiah-Caceres -) 1 applic TP BID [facility] Last Admin: 02/05/18 09:32 Dose: Not Given Nystatin (Nystatin Oral Suspension -) 500,000 units PO Q6HPO [facility] Pantoprazole Sodium (Protonix Iv) 40 mg IVPB DAILY [facility] Last Admin: 02/05/18 09:31 Dose: 40 mg Polyethylene Glycol (Miralax (For Daily Use) -) 17 gm PO DAILY [facility] Last Admin: 02/05/18 09:33 Dose: 17 grams - Objective Vital Signs: Vital Signs Temperature 98.2 F 02/05/18 10:35 Pulse Rate 102 H 02/05/18 10:35 Respiratory Rate 18 02/05/18 10:35 Blood Pressure 136/89 12/06/18 10:35 O2 Sat by Pulse Oximetry (%) 96 02/05/18 09:00 Constitutional: Yes: Calm HENT: Yes: Thrush Cardiovascular: Yes: Regular Rate and Rhythm, S1, S2 Respiratory: Yes: Diminished Gastrointestinal: Yes: Normal Bowel Sounds, Soft Edema: No Neurological: Yes: Alert Labs: CBC, BMP 02/04/18 09:55 02/05/18 09:18 Problem List - Problems (1) Cancer associated pain Assessment/Plan: iv dilaudid pain consult dr mclean Code(s): G89.3 - NEOPLASM RELATED PAIN (ACUTE) (CHRONIC) (2) Endometrial malignant neoplasm Assessment/Plan: megace for anorexia oncology on board- plan for whole brain RT once nutritional status improves lovenox Code(s): C54.1 - MALIGNANT NEOPLASM OF ENDOMETRIUM (3) Decreased appetite Assessment/Plan: s/p barium swallow megace Code(s): R63.0 - ANOREXIA (4) Prolonged QT interval Assessment/Plan: tele monitiring Code(s): R94.31 - ABNORMAL ELECTROCARDIOGRAM [ECG] [EKG] (5) Thrush, oral Assessment/Plan: nsytatin Code(s): B37.0 - CANDIDAL STOMATITIS (6) Hypokalemia Assessment/Plan: repelted repeat in AM Code(s): E87.6 - HYPOKALEMIA
--- NOTE | 2018-02-05 15:17 | PN ---
Progress Note (short form) - Note Progress Note: Still with FREIRE and diffuse pain. MBS noted: recommended for only thin liquids. Being monitored on Telemetry due to increasing QT. Intake & Output 02/02/18 02/03/18 02/04/18 02/05/18 23:59 23:59 23:59 23:59 Intake Total 200 1065 Balance 200 1065 Weight 131 lb Last Vital Signs Temp Pulse Resp BP Pulse Ox 97.7 F 102 H 20 146/78 96 02/05/18 14:00 02/05/18 14:00 02/05/18 14:00 02/05/18 14:00 02/05/18 09:00 Active Medications Acetaminophen (Tylenol -) 650 mg PO Q6H PRN PRN Reason: PAIN OR FEVER Acetaminophen/Butalbital/Caffeine (Fioricet -) 1 tablet PO Q4H PRN PRN Reason: HEADACHE Last Admin: 02/05/18 09:31 Dose: 1 tablet Docusate Sodium (Colace -) 100 mg PO TID [facility] Last Admin: 02/05/18 14:13 Dose: 100 mg Enoxaparin Sodium (Lovenox -) 60 mg SQ BID [facility] Last Admin: 02/05/18 09:31 Dose: 60 mg Guaifenesin/Codeine Phosphate (Robitussin Ac -) 5 ml PO HS [facility] Last Admin: 02/04/18 21:43 Dose: 5 ml Guaifenesin/Codeine Phosphate (Robitussin Ac -) 5 ml PO Q8H PRN PRN Reason: COUGH Hydromorphone HCl (Dilaudid Vial -) 1 mg IVPB Q4H PRN PRN Reason: PAIN LEVEL 6-10 Last Admin: 02/05/18 08:51 Dose: 1 mg Dextrose/Sodium Chloride (D5-Ns -) 1,000 mls @ 75 mls/hr IV ASDIR [facility] Last Admin: 02/05/18 06:50 Dose: 75 mls/hr Lorazepam (Ativan Injection -) 0.5 mg IVPUSH Q6H PRN PRN Reason: NAUSEA AND/OR VOMITING Megestrol Acetate (Megace Oral Suspension -) 40 mg PO Q6HPO [facility] Methyl Salicylate (Nehemiah-Caceres -) 1 applic TP BID [facility] Last Admin: 02/05/18 09:32 Dose: Not Given Nystatin (Nystatin Oral Suspension -) 500,000 units PO Q6HPO [facility] Last Admin: 02/05/18 14:11 Dose: 500,000 units Pantoprazole Sodium (Protonix Iv) 40 mg IVPB DAILY [facility] Last Admin: 02/05/18 09:31 Dose: 40 mg Polyethylene Glycol (Miralax (For Daily Use) -) 17 gm PO DAILY [facility] Last Admin: 02/05/18 09:33 Dose: 17 grams Constitutional: Yes: Uncomfortable due to pain HENT: Yes: (?) Thrush Cardiovascular: Yes: Regular Rate and Rhythm, S1, S2 Respiratory: Yes: Diminished Gastrointestinal: Yes: Normal Bowel Sounds, Soft Edema: No Neurological: Yes: Alert Labs: Laboratory Results - last 24 hr 02/05/18 02/05/18 09:18 09:18 Sodium 139 Potassium 3.5 Chloride 104 Carbon Dioxide 27 Anion Gap 8 BUN 2 L* Creatinine 0.7 Creat Clearance w eGFR > 60 Random Glucose 130 H Calcium 9.6 Phosphorus 2.4 L Magnesium 2.0 Total Bilirubin 0.3 AST 22 ALT 17 Alkaline Phosphatase 81 Total Protein 7.4 Albumin 3.0 L Problem List - Problems (1) Cancer associated pain Assessment/Plan: Code(s): G89.3 - NEOPLASM RELATED PAIN (ACUTE) (CHRONIC) (2) Endometrial malignant neoplasm Assessment/Plan: Code(s): C54.1 - MALIGNANT NEOPLASM OF ENDOMETRIUM (3) Decreased appetite Assessment/Plan: Code(s): R63.0 - ANOREXIA (4) Prolonged QT interval Assessment/Plan: Code(s): R94.31 - ABNORMAL ELECTROCARDIOGRAM [ECG] [EKG] (5) Thrush, oral Assessment/Plan: Code(s): B37.0 - CANDIDAL STOMATITIS (6) Hypokalemia Assessment/Plan: Code(s): E87.6 - HYPOKALEMIA PLAN: Thin liquids Nystatin: Avoid Azole due to prolonged QT Lovenox 60mg BID O2 as needed Megace QID Ativan PRN for nausea Pain evaluation IVF Dietary evaluation Avoid Reglan/Zofran due to prolonged QT Cardiac Telemetry monitoring Dr Rea Problem List - Problems (1) Cancer associated pain Code(s): G89.3 - NEOPLASM RELATED PAIN (ACUTE) (CHRONIC) (2) Pericardial effusion Code(s): I31.3 - PERICARDIAL EFFUSION (NONINFLAMMATORY) (3) Endometrial malignant neoplasm Code(s): C54.1 - MALIGNANT NEOPLASM OF ENDOMETRIUM (4) Lung metastases Code(s): C78.00 - SECONDARY MALIGNANT NEOPLASM OF UNSPECIFIED LUNG (5) Tachycardia Code(s): R00.0 - TACHYCARDIA, UNSPECIFIED
[2018-02-05] MEDS: D5-NS + 20 MEQ KCL - 20 MEQ/1,000 ML INFUS.BAG IV SCH (15:49)
[2018-02-05] MEDS: MEGESTROL ACETATE 400 MG/10 ML UNIT DOSE CUP PO SCH (17:30)
[2018-02-05] MEDS: NAPH,MB-DB/K PH,MBDB POWDER PACKET PO SCH ×2 (21:46→21:55)
[2018-02-05] MEDS: guaiFENesin/CODEINE 5 ML UNIT-DOSE CUPS PO SCH ×2 (21:46→21:54)
[2018-02-05] MEDS: LORazepam 2 MG/ML SDV VIAL IVPUSH PRN (22:19)
[2018-02-06] MEDS: MEGESTROL ACETATE 400 MG/10 ML UNIT DOSE CUP PO SCH ×4 (00:31→17:38)
[2018-02-06] MEDS: NYSTATIN 500,000 UNITS/5 ML SUSPENSION PO SCH ×4 (00:32→17:38)
[2018-02-06] MEDS: HYDROmorphone HCl 2 MG/ML VIAL IVPB PRN ×4 (02:26→18:31)
[2018-02-06] MEDS: DOCUSATE SODIUM 100 MG CAPSULE (FP) PO SCH ×3 (06:08→22:13)
[2018-02-06] MEDS: NAPH,MB-DB/K PH,MBDB POWDER PACKET PO SCH (06:09)
[2018-02-06] MEDS: D5-NS + 20 MEQ KCL - 20 MEQ/1,000 ML INFUS.BAG IV SCH (06:52)
[2018-02-06 08:37] LABS: ALBUMIN 2.9 g/dl (3.4-5.0); ALK PHOS 84 U/L (45-117); ANION GAP 12 MMOL/L (8-16); BILIRUBIN,TOTAL 0.2 mg/dL (0.2-1); CHLORIDE 98 mmol/L (98-107); CO2 24 mmol/L (21-32); CREATININE 0.5 mg/dL (0.55-1.3); GLUCOSE,RANDOM 119 mg/dL (74-106); MAGNESIUM 1.7 mg/dL (1.8-2.4); POTASSIUM 3.4 mmol/L (3.5-5.1); SGOT/AST 19 U/L (15-37); SGPT/ALT 15 U/L (13-61); SODIUM 134 mmol/L (136-145); TOT PROT 7.2 g/dl (6.4-8.2)
--- NOTE | 2018-02-06 09:28 | PN ---
Progress Note (short form) - Note Progress Note: Neurology History of Present Illness: 57 year old female with a significant past medical history of stage 4 endometrial ca w/ mets to lungs and brain (chemo), DVT (on lovenox) and GERD who presented to the emergency department with intractable pain. Per notes, she reported pain all over her body, from her head to her lungs and extremities. Limited relief with current pain medication regiment. She has also been experiencing some difficulty eating and swallowing food secondary to pain. Pt endorsed associated nausea and vomiting. Consulted for headaches, initially seen with Dr. rea at bedside, nephew of patient. Put on Fioricet and this AM sleepy, spoke with Dr. Rea and has received sedatives overnight including ativan and more comfortable today. Reports headaches are better. Active Medications Acetaminophen (Tylenol -) 650 mg PO Q6H PRN PRN Reason: PAIN OR FEVER Acetaminophen/Butalbital/Caffeine (Fioricet -) 1 tablet PO Q4H PRN PRN Reason: HEADACHE Last Admin: 02/05/18 09:31 Dose: 1 tablet Docusate Sodium (Colace -) 100 mg PO TID [facility] Last Admin: 02/06/18 06:08 Dose: Not Given Enoxaparin Sodium (Lovenox -) 60 mg SQ BID [facility] Last Admin: 02/05/18 21:46 Dose: 60 mg Guaifenesin/Codeine Phosphate (Robitussin Ac -) 5 ml PO HS [facility] Last Admin: 02/05/18 21:54 Dose: Not Given Guaifenesin/Codeine Phosphate (Robitussin Ac -) 5 ml PO Q8H PRN PRN Reason: COUGH Hydromorphone HCl (Dilaudid Vial -) 1 mg IVPB Q4H PRN PRN Reason: PAIN LEVEL 6-10 Last Admin: 02/06/18 07:43 Dose: 1 mg Dextrose/Sodium Chloride (Dextrose 5%-Normal Saline+20 Meq Kcl -) 20 meq in 1, 000 mls @ 75 mls/hr IV ASDIR [facility] Last Admin: 02/06/18 06:52 Dose: 75 mls/hr Lorazepam (Ativan Injection -) 0.5 mg IVPUSH Q6H PRN PRN Reason: NAUSEA AND/OR VOMITING Last Admin: 02/05/18 22:19 Dose: 0.5 mg Megestrol Acetate (Megace Oral Suspension -) 40 mg PO Q6HPO [facility] Last Admin: 02/06/18 06:08 Dose: Not Given Methyl Salicylate (Nehemiah-Caceres -) 1 applic TP BID [facility] Last Admin: 02/05/18 21:46 Dose: Not Given Nystatin (Nystatin Oral Suspension -) 500,000 units PO Q6HPO [facility] Last Admin: 02/06/18 06:09 Dose: Not Given Pantoprazole Sodium (Protonix Iv) 40 mg IVPB DAILY [facility] Last Admin: 02/05/18 09:31 Dose: 40 mg Polyethylene Glycol (Miralax (For Daily Use) -) 17 gm PO DAILY [facility] Last Admin: 02/05/18 09:33 Dose: 17 grams Potassium Phos/Sodium Phos (Phos-Nak Packet -) 1 packet PO TID [facility] Stop: 02/06/18 14:01 Last Admin: 02/06/18 06:09 Dose: Not Given *Physical Exam Vital Signs Period Temp Pulse Resp BP Sys/Alexandra Pulse Ox Last 24 Hr 97.7 F-98.2 F 96-129 16-20 122-154/78-98 96-98 "GENERAL: Awake, alert, and fully oriented, in no acute distress. HEAD: No signs of trauma EYES: PERRLA, EOMI, sclera anicteric, conjunctiva clear ENT: Auricles normal inspection, hearing grossly normal, nares patent, oropharynx clear without exudates. Moist mucosa NECK: Nontender, no stepoffs, Normal ROM, supple, no lymphadenopathy, JVD, or masses LUNGS: Breath sounds equal, clear to auscultation bilaterally. No wheezes, and no crackles HEART: Regular rate and rhythm, normal S1 and S2, no murmurs, rubs or gallops ABDOMEN: + diffuse tenderness, nondistended, normoactive bowel sounds. No guarding, no rebound. No masses EXTREMITIES: Normal range of motion, no edema. No clubbing or cyanosis. No cords, erythema, or tenderness NEUROLOGICAL: Cranial nerves II through XII intact. moves all extremities grossly, speech intact, sensory intact to tactile stim SKIN: Warm, Dry, normal turgor, no rashes or lesions noted. Imaging Last U/S dopple done in 12/2017 showed RLE DVT-being treated with Lovenox O/P Last Bone density-osteopenia Last MRI w/wo contrast at [facility] on 01/19/18 showed 11 new metastases and some decreased metastases CT abd/pel on 12/01/17 showed no liver metastasis CBCD WBC 5.1 K/mm3 (4.0-10.0) 02/04/18 09:55 RBC 3.49 M/mm3 (3.60-5.2) L 02/04/18 09:55 Hgb 10.6 GM/dL (10.7-15.3) L 02/04/18 09:55 Hct 32.9 % (32.4-45.2) D 02/04/18 09:55 MCV 94.3 fl (80-96) 02/04/18 09:55 MCHC 32.3 g/dl (32.0-36.0) 02/04/18 09:55 RDW 17.3 % (11.6-15.6) H 02/04/18 09:55 Plt Count 226 K/MM3 (134-434) D 02/04/18 09:55 MPV 8.1 fl (7.5-11.1) D 02/04/18 09:55 CMP Sodium 134 mmol/L (136-145) L 02/06/18 06:00 Potassium 3.4 mmol/L (3.5-5.1) L 02/06/18 06:00 Chloride 98 mmol/L (98-107) 02/06/18 06:00 Carbon Dioxide 24 mmol/L (21-32) 02/06/18 06:00 Anion Gap 12 MMOL/L (8-16) 02/06/18 06:00 BUN 2 mg/dL (7-18) L* 02/05/18 09:18 Creatinine 0.5 mg/dL (0.55-1.3) L 02/06/18 06:00 Creat Clearance w eGFR > 60 (>60) 02/06/18 06:00 Random Glucose 119 mg/dL (74-106) H 02/06/18 06:00 Calcium 9.6 mg/dL (8.5-10.1) 02/05/18 09:18 Total Bilirubin 0.2 mg/dL (0.2-1) 02/06/18 06:00 AST 19 U/L (15-37) 02/06/18 06:00 ALT 15 U/L (13-61) 02/06/18 06:00 Alkaline Phosphatase 84 U/L (45-117) 02/06/18 06:00 Total Protein 7.2 g/dl (6.4-8.2) 02/06/18 06:00 Albumin 2.9 g/dl (3.4-5.0) L 02/06/18 06:00 CARDIAC ENZYMES Creatine Kinase 73 IU/L (26-192) 02/04/18 10:20 Troponin I < 0.02 ng/ml (0.00-0.05) 02/04/18 10:20 Plan: 57 year old female with a significant past medical history of stage 4 endometrial ca w/ mets to lungs and brain (chemo), DVT (on lovenox) and GERD who presented to the emergency department with intractable pain. Per notes, she reported pain all over her body, from her head to her lungs and extremities. Limited relief with current pain medication regiment. She has also been experiencing some difficulty eating and swallowing food secondary to pain. Pt endorsed associated nausea and vomiting. Consulted for headaches, initially seen with Dr. rea at bedside, nephew of patient. Fioricet has been helpful for the patient. Maintain hydration, increased PO intake as tolerated. Cognitive rest as able. If fioricet not effective would consider alternative medication such as topamax or amitryptiline but this AM reports headaches improved.
--- NOTE | 2018-02-06 09:33 | PN ---
Progress Note, Physician Chief Complaint: sleeping comfortably TELE: NSR, Rare VPCs. No sustained arrhythmias. Could not tolerate oral K, was added to IVF - Current Medication List Current Medications: Active Medications Acetaminophen (Tylenol -) 650 mg PO Q6H PRN PRN Reason: PAIN OR FEVER Acetaminophen/Butalbital/Caffeine (Fioricet -) 1 tablet PO Q4H PRN PRN Reason: HEADACHE Last Admin: 02/05/18 09:31 Dose: 1 tablet Docusate Sodium (Colace -) 100 mg PO TID [facility] Last Admin: 02/06/18 06:08 Dose: Not Given Enoxaparin Sodium (Lovenox -) 60 mg SQ BID [facility] Last Admin: 02/05/18 21:46 Dose: 60 mg Guaifenesin/Codeine Phosphate (Robitussin Ac -) 5 ml PO HS [facility] Last Admin: 02/05/18 21:54 Dose: Not Given Guaifenesin/Codeine Phosphate (Robitussin Ac -) 5 ml PO Q8H PRN PRN Reason: COUGH Hydromorphone HCl (Dilaudid Vial -) 1 mg IVPB Q4H PRN PRN Reason: PAIN LEVEL 6-10 Last Admin: 02/06/18 07:43 Dose: 1 mg Dextrose/Sodium Chloride (Dextrose 5%-Normal Saline+20 Meq Kcl -) 20 meq in 1, 000 mls @ 75 mls/hr IV ASDIR [facility] Last Admin: 02/06/18 06:52 Dose: 75 mls/hr Lorazepam (Ativan Injection -) 0.5 mg IVPUSH Q6H PRN PRN Reason: NAUSEA AND/OR VOMITING Last Admin: 02/05/18 22:19 Dose: 0.5 mg Magnesium Oxide (Mag-Ox -) 400 mg PO BID [facility] Stop: 02/07/18 23:59 Megestrol Acetate (Megace Oral Suspension -) 40 mg PO Q6HPO [facility] Last Admin: 02/06/18 06:08 Dose: Not Given Methyl Salicylate (Nehemiah-Caceres -) 1 applic TP BID [facility] Last Admin: 02/05/18 21:46 Dose: Not Given Nystatin (Nystatin Oral Suspension -) 500,000 units PO Q6HPO [facility] Last Admin: 02/06/18 06:09 Dose: Not Given Pantoprazole Sodium (Protonix Iv) 40 mg IVPB DAILY [facility] Last Admin: 02/05/18 09:31 Dose: 40 mg Polyethylene Glycol (Miralax (For Daily Use) -) 17 gm PO DAILY [facility] Last Admin: 02/05/18 09:33 Dose: 17 grams Potassium Phos/Sodium Phos (Phos-Nak Packet -) 1 packet PO TID [facility] Stop: 02/06/18 14:01 Last Admin: 02/06/18 06:09 Dose: Not Given - Objective Vital Signs: Vital Signs Temperature 98 F 02/06/18 02:00 Pulse Rate 129 H 02/06/18 02:00 Respiratory Rate 20 02/06/18 02:00 Blood Pressure 122/98 02/06/18 02:00 O2 Sat by Pulse Oximetry (%) 96 02/05/18 21:00 Constitutional: Yes: Calm Cardiovascular: Yes: Regular Rate and Rhythm Respiratory: Yes: CTA Bilaterally (no wheezing) Gastrointestinal: Yes: Soft Edema: No Neurological: Yes: Alert Labs: CBC, BMP 02/04/18 09:55 02/06/18 06:00 - ....Imaging EKG: Image Reviewed Assessment/Plan IMP: Metastatic endometrial cancer Intractable nausea, chronic pain- malignancy related Prolonged QTc in setting of opiates and Zofran Prior DVT Stable trivial pericardial effusion REC: 1. Repleting lytes 2. Tele for additional 24 hours 3. Daily ECG 4. Cont Lovenox Remains hemodynamically stable.
[2018-02-06 09:39] LABS: CALCIUM 9.3 mg/dL (8.5-10.1)
[2018-02-06 10:26] LABS: BLOOD UREA NITROGEN 2 mg/dL (7-18)
--- NOTE | 2018-02-06 11:43 | EKG ---
Test Reason : Blood Pressure : / mmHG Vent. Rate : 097 BPM Atrial Rate : 097 BPM P-R Int : 136 ms QRS Dur : 084 ms QT Int : 432 ms P-R-T Axes : 036 -18 056 degrees QTc Int : 548 ms NORMAL SINUS RHYTHM POSSIBLE LEFT ATRIAL ENLARGEMENT LEFT VENTRICULAR HYPERTROPHY NONSPECIFIC T WAVE ABNORMALITY ABNORMAL ECG WHEN COMPARED WITH ECG OF 04-FEB-2018 09:57, SINUS RHYTHM HAS REPLACED JUNCTIONAL RHYTHM NONSPECIFIC T WAVE ABNORMALITY, WORSE IN LATERAL LEADS QT HAS SHORTENED Confirmed by RENEE SPEARS, RONALD ([id number]) on 02/06/2018 11:43:13 AM Referred By: ROZINA BERNAL Confirmed By:RONALD DURAN MD
--- NOTE | 2018-02-06 11:55 | PN ---
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 Phlegm production. Pt c/o difficulty breathing. Nursing called, suctioned, O2 sat 97% on NC. Educated pt/son on trial of single sips of Ensure Enlive, with head rotation/ flexion to left and multiple hard swallows. Ist trial, audible inspiratory wheeze, encouraged to cough, expectorate phlegm with improved respiration. 2nd trial, better tolerance, but wanted no more. Limited nutritional intake. Continue PO trials of thin liquid/ Nystatin, as tolerated.
[2018-02-06] MEDS: PANTOPRAZOLE SODIUM 40 MG VIAL IVPB SCH (12:01)
[2018-02-06] MEDS: ENOXAPARIN NA (PORCINE) 60 MG/0.6 ML DISP.SYRIN SQ SCH ×2 (12:01→22:13)
[2018-02-06] MEDS: POLYETHYLENE GLYCOL 3350 119 GM BTL PO SCH (12:01)
[2018-02-06] MEDS: MAGNESIUM OXIDE 400 MG TABLET (FP) PO SCH ×3 (12:01→22:14)
[2018-02-06] MEDS: LORazepam 2 MG/ML SDV VIAL IVPUSH PRN (12:05)
--- NOTE | 2018-02-06 12:45 | PN ---
Progress Note, Physician History of Present Illness: pulmonary drowsy on nasal O2. -resp distress - Current Medication List Current Medications: Active Medications Acetaminophen (Tylenol -) 650 mg PO Q6H PRN PRN Reason: PAIN OR FEVER Acetaminophen/Butalbital/Caffeine (Fioricet -) 1 tablet PO Q4H PRN PRN Reason: HEADACHE Last Admin: 02/05/18 09:31 Dose: 1 tablet Docusate Sodium (Colace -) 100 mg PO TID [facility] Last Admin: 02/06/18 06:08 Dose: Not Given Enoxaparin Sodium (Lovenox -) 60 mg SQ BID [facility] Last Admin: 02/06/18 12:01 Dose: 60 mg Guaifenesin/Codeine Phosphate (Robitussin Ac -) 5 ml PO HS [facility] Last Admin: 02/05/18 21:54 Dose: Not Given Guaifenesin/Codeine Phosphate (Robitussin Ac -) 5 ml PO Q8H PRN PRN Reason: COUGH Hydromorphone HCl (Dilaudid Vial -) 1 mg IVPB Q4H PRN PRN Reason: PAIN LEVEL 6-10 Last Admin: 02/06/18 07:43 Dose: 1 mg Dextrose/Sodium Chloride (Dextrose 5%-Normal Saline+20 Meq Kcl -) 20 meq in 1, 000 mls @ 75 mls/hr IV ASDIR [facility] Last Admin: 02/06/18 06:52 Dose: 75 mls/hr Lorazepam (Ativan Injection -) 0.5 mg IVPUSH Q6H PRN PRN Reason: NAUSEA AND/OR VOMITING Last Admin: 02/06/18 12:05 Dose: 0.5 mg Magnesium Oxide (Mag-Ox -) 400 mg PO BID [facility] Stop: 02/07/18 23:59 Megestrol Acetate (Megace Oral Suspension -) 40 mg PO Q6HPO [facility] Last Admin: 02/06/18 12:01 Dose: 40 mg Methyl Salicylate (Nehemiah-Caceres -) 1 applic TP BID [facility] Last Admin: 02/05/18 21:46 Dose: Not Given Nystatin (Nystatin Oral Suspension -) 500,000 units PO Q6HPO [facility] Last Admin: 02/06/18 12:01 Dose: 500,000 units Pantoprazole Sodium (Protonix Iv) 40 mg IVPB DAILY [facility] Last Admin: 02/06/18 12:01 Dose: 40 mg Polyethylene Glycol (Miralax (For Daily Use) -) 17 gm PO DAILY [facility] Last Admin: 02/06/18 12:01 Dose: 17 grams Potassium Phos/Sodium Phos (Phos-Nak Packet -) 1 packet PO TID [facility] Stop: 02/06/18 14:01 Last Admin: 02/06/18 06:09 Dose: Not Given - Objective Vital Signs: Vital Signs Temperature 98.5 F 02/06/18 10:00 Pulse Rate 86 02/06/18 10:00 Respiratory Rate 20 02/06/18 10:00 Blood Pressure 142/88 02/06/18 10:00 O2 Sat by Pulse Oximetry (%) 96 02/06/18 07:30 Constitutional: Yes: Well Nourished, Other Eyes: Yes: WNL HENT: Yes: WNL Neck: Yes: WNL, Other (increased upper airway bs) Cardiovascular: Yes: Regular Rate and Rhythm, S1, S2 Respiratory: Yes: WNL, Other (transmitted upper airway bs) Gastrointestinal: Yes: Normal Bowel Sounds, Soft Extremities: Yes: WNL Edema: No Labs: CBC, BMP 02/04/18 09:55 02/06/18 06:00 Assessment/Plan Problem List - Problems (1) Cancer associated pain Assessment/Plan: Code(s): G89.3 - NEOPLASM RELATED PAIN (ACUTE) (CHRONIC) (2) Endometrial malignant neoplasm Assessment/Plan: Code(s): C54.1 - MALIGNANT NEOPLASM OF ENDOMETRIUM (3) Decreased appetite Assessment/Plan: Code(s): R63.0 - ANOREXIA (4) Prolonged QT interval Assessment/Plan: Code(s): R94.31 - ABNORMAL ELECTROCARDIOGRAM [ECG] [EKG] (5) Thrush, oral Assessment/Plan: Code(s): B37.0 - CANDIDAL STOMATITIS (6) Hypokalemia Assessment/Plan: Code(s): E87.6 - HYPOKALEMIA PLAN: NPO Nystatin: Avoid Azole due to prolonged QT Lovenox 60mg BID O2 as needed Megace QID Ativan PRN for nausea IVF oral suctioning aspiration precautions Clinimax Dr Singh Problem List - Problems (1) Cancer associated pain Code(s): G89.3 - NEOPLASM RELATED PAIN (ACUTE) (CHRONIC) (2) Pericardial effusion Code(s): I31.3 - PERICARDIAL EFFUSION (NONINFLAMMATORY) (3) Endometrial malignant neoplasm Code(s): C54.1 - MALIGNANT NEOPLASM OF ENDOMETRIUM (4) Lung metastases Code(s): C78.00 - SECONDARY MALIGNANT NEOPLASM OF UNSPECIFIED LUNG (5) Tachycardia Code(s): R00.0 - TACHYCARDIA, UNSPECIFIED
[2018-02-06] MEDS ORDERED: [UNRECOGNIZED DRUG - OTHER] IV SCH (13:00)
[2018-02-06] MEDS ORDERED: SODIUM CHLORIDE IV SCH ×2 (13:00→13:03)
[2018-02-06] MEDS ORDERED: POTASSIUM PHOSPHATE IV SCH ×2 (13:00→13:03)
[2018-02-06] MEDS ORDERED: POTASSIUM CHLORIDE IV SCH (13:03)
[2018-02-06] MEDS ORDERED: [UNRECOGNIZED DRUG - OTHER] IV SCH (13:03)
[2018-02-06] MEDS ORDERED: PT OWN MED DRAWER 7, Y5N ONE (13:25)
[2018-02-06] MEDS: METHYL SALICYLATE/MENTHOL OINT 30 GM TUBE TP SCH ×3 (14:13→22:13)
--- NOTE | 2018-02-06 14:13 | PN ---
Progress Note, Physician - Current Medication List Current Medications: Active Medications Acetaminophen (Tylenol -) 650 mg PO Q6H PRN PRN Reason: PAIN OR FEVER Acetaminophen/Butalbital/Caffeine (Fioricet -) 1 tablet PO Q4H PRN PRN Reason: HEADACHE Last Admin: 02/05/18 09:31 Dose: 1 tablet Docusate Sodium (Colace -) 100 mg PO TID [facility] Last Admin: 02/06/18 06:08 Dose: Not Given Enoxaparin Sodium (Lovenox -) 60 mg SQ BID [facility] Last Admin: 02/06/18 12:01 Dose: 60 mg Fat Emulsion Intravenous (Intralipid -) 250 ml IV DAILY@2200 [facility] Guaifenesin/Codeine Phosphate (Robitussin Ac -) 5 ml PO HS [facility] Last Admin: 02/05/18 21:54 Dose: Not Given Guaifenesin/Codeine Phosphate (Robitussin Ac -) 5 ml PO Q8H PRN PRN Reason: COUGH Hydromorphone HCl (Dilaudid Vial -) 1 mg IVPB Q4H PRN PRN Reason: PAIN LEVEL 6-10 Last Admin: 02/06/18 07:43 Dose: 1 mg Lorazepam (Ativan Injection -) 0.25 mg IVPUSH Q6H PRN PRN Reason: NAUSEA AND/OR VOMITING Magnesium Oxide (Mag-Ox -) 400 mg PO BID [facility] Stop: 02/07/18 23:59 Last Admin: 02/06/18 13:19 Dose: Not Given Megestrol Acetate (Megace Oral Suspension -) 40 mg PO Q6HPO [facility] Last Admin: 02/06/18 12:01 Dose: 40 mg Methyl Salicylate (Nehemiah-Caceres -) 1 applic TP BID [facility] Last Admin: 02/05/18 21:46 Dose: Not Given Nystatin (Nystatin Oral Suspension -) 500,000 units PO Q6HPO [facility] Last Admin: 02/06/18 12:01 Dose: 500,000 units Pantoprazole Sodium (Protonix Iv) 40 mg IVPB DAILY [facility] Last Admin: 02/06/18 12:01 Dose: 40 mg Polyethylene Glycol (Miralax (For Daily Use) -) 17 gm PO DAILY [facility] Last Admin: 02/06/18 12:01 Dose: 17 grams - Objective Vital Signs: Vital Signs Temperature 98.5 F 02/06/18 10:00 Pulse Rate 86 02/06/18 10:00 Respiratory Rate 20 02/06/18 10:00 Blood Pressure 142/88 02/06/18 10:00 O2 Sat by Pulse Oximetry (%) 96 02/06/18 07:30 Cardiovascular: Yes: S1, S2 Respiratory: Yes: On Nasal O2, Rhonchi Gastrointestinal: Yes: Normal Bowel Sounds, Soft Labs: CBC, BMP 02/04/18 09:55 02/06/18 06:00 Assessment/Plan - Problems (1) Cancer associated pain Assessment/Plan: iv dilaudid pain consult dr mclean Code(s): G89.3 - NEOPLASM RELATED PAIN (ACUTE) (CHRONIC) (2) Endometrial malignant neoplasm Assessment/Plan: megace for anorexia oncology on board- plan for whole brain RT once nutritional status improves lovenox Code(s): C54.1 - MALIGNANT NEOPLASM OF ENDOMETRIUM (3) Decreased appetite Assessment/Plan: s/p barium swallow megace Code(s): R63.0 - ANOREXIA (4) Prolonged QT interval Assessment/Plan: tele monitoring Code(s): R94.31 - ABNORMAL ELECTROCARDIOGRAM [ECG] [EKG] (5) Thrush, oral Assessment/Plan: nsytatin Code(s): B37.0 - CANDIDAL STOMATITIS (6) Hypokalemia Assessment/Plan: repelted repeat in AM Code(s): E87.6 - HYPOKALEMIA
[2018-02-06] MEDS ORDERED: MAGNESIUM SULF 50% (8.12 MEQ/2 ML-1 GM VIAL) IVPB ONE (14:15)
[2018-02-06] MEDS: DEXTROSE 5%-0.45% SALINE 1,000 ML with POTASSIUM CHLORIDE 40 MEQ IVPB SCH (14:26)
[2018-02-06] MEDS: ALBUTEROL SO4 2.5/IPRATROPIUM 0.5 INH SOL 3 ML VIAL.NEB. NEB SCH ×2 (16:26→21:30)
--- NOTE | 2018-02-06 17:31 | PROC ---
Central Line Insertion Indication: Parenteral Nutrition, Poor Venous Access Risks and Benefits Explained: Yes Consent on Chart: Yes Central Line: Triple Lumen Catheter Anesthesia: 1% Lidocaine Sterile Technique: Yes Ultrasound Guided Assistance: Yes Position: Right Internal Jugular Post Insertion: Yes: Bilateral Breath Sounds, Bilateral Chest Expansion, Chest X-Ray Ordered Sterile Dressing Applied: Yes
--- NOTE | 2018-02-06 18:34 | PN ---
Teaching Attending Note Name of Resident: Priscilla Bowman ATTENDING PHYSICIAN STATEMENT I saw and evaluated the patient. I reviewed the resident's note and discussed the case with the resident. I agree with the resident's findings and plan as documented. ASSESSMENT AND PLAN: 57 y/o patient History of endometrial ca treated 8 years ago with surgery and RT. Free of disease until this year when she developed pulmonary, scalp and brain mets. Brain mets treated with SRS. Endometrial ca treated with 6 cycles of taxol and carboplatinum followed by letrozole. Lung mets treated with RT. Currently with recurrent new brain mets and severe headache with nausea and vomiting. Failure to thrive CT head shows edema MRI with contrast when able to r/o reccurrent brain mets start decadron 4mg tid/protonix consider rad-onc colnsult will follow
--- NOTE | 2018-02-06 20:55 | PN ---
Progress Note (short form) - Note Progress Note: Long discussion with (Sharan) and 2 children (Jenni and Ranjit). Citlali has expressed to all of us (myself included) that her ultimate goal is to be made comfortable and be pain free. She would not want cardiac or pulmonary resuscitation. I have placed an order for DNR/DNI. The family is agreeable to continued treatment for now. Dr Rea Problem List - Problems (1) Cancer associated pain Code(s): G89.3 - NEOPLASM RELATED PAIN (ACUTE) (CHRONIC) (2) Pericardial effusion Code(s): I31.3 - PERICARDIAL EFFUSION (NONINFLAMMATORY) (3) Endometrial malignant neoplasm Code(s): C54.1 - MALIGNANT NEOPLASM OF ENDOMETRIUM (4) Lung metastases Code(s): C78.00 - SECONDARY MALIGNANT NEOPLASM OF UNSPECIFIED LUNG (5) Tachycardia Code(s): R00.0 - TACHYCARDIA, UNSPECIFIED
[2018-02-06] MEDS: guaiFENesin/CODEINE 5 ML UNIT-DOSE CUPS PO SCH (22:14)
[2018-02-06] MEDS: DEXAMETHASONE SOD PHOSPHATE 4 MG/1 ML VIAL IVPB SCH (22:21)
[2018-02-06] MEDS: FAT EMULSIONS 20% 250 ML PREMIX INFUS.BAG IV SCH (23:30)
[2018-02-07] MEDS: MEGESTROL ACETATE 400 MG/10 ML UNIT DOSE CUP PO SCH ×4 (00:10→17:27)
[2018-02-07] MEDS: NYSTATIN 500,000 UNITS/5 ML SUSPENSION PO SCH ×5 (00:11→17:27)
[2018-02-07] MEDS: FAT EMULSIONS 20% 250 ML PREMIX INFUS.BAG IV SCH (01:24)
[2018-02-07] MEDS: HYDROmorphone HCl 2 MG/ML VIAL IVPB PRN ×5 (03:10→20:02)
[2018-02-07] MEDS: DOCUSATE SODIUM 100 MG CAPSULE (FP) PO SCH ×3 (06:46→22:17)
[2018-02-07] MEDS: DEXAMETHASONE SOD PHOSPHATE 4 MG/1 ML VIAL IVPB SCH ×3 (07:08→22:22)
[2018-02-07 08:12] LABS: BASO % 0.1 % (0-2.0); EOS % 0.1 % (0-4.5); HEMATOCRIT 31.7 % (32.4-45.2); HEMOGLOBIN 10.2 GM/dL (10.7-15.3); LYMPH % 13.7 % (8-40); MCH 30.4 pg (25.7-33.7); MEAN CELL VOLUME 95.1 fl (80-96); MEAN PLT VOLUME 7.6 fl (7.5-11.1); MONO % 5.3 % (3.8-10.2); NEUT % 80.8 % (42.8-82.8); PLATELET COUNT 207 K/MM3 (134-434); RBC 3.34 M/mm3 (3.60-5.2); RDW 17.3 % (11.6-15.6); WHITE BLOOD COUNT 6.9 K/mm3 (4.0-10.0)
[2018-02-07] MEDS: ALBUTEROL SO4 2.5/IPRATROPIUM 0.5 INH SOL 3 ML VIAL.NEB. NEB SCH ×4 (08:20→21:25)
[2018-02-07 08:22] LABS: INR 1.24 (0.83-1.09); PROTHROMBIN TIME (PATIENT) 14.7 SEC (9.7-13.0)
[2018-02-07 08:24] LABS: ACTIVATED PTT 25.9 SECONDS (25.2-36.5)
--- NOTE | 2018-02-07 09:27 | PN ---
Progress Note (short form) - Note Progress Note: Subjective: --No acute overnight events --Goals of care addressed by primary team- made DNR/DNI Objective: Vital Signs - 24 hr 02/06/18 02/06/18 02/06/18 10:00 14:00 18:00 Temperature 98.5 F 97.7 F 98 F Pulse Rate 86 93 H 95 H Respiratory 20 20 22 H Rate Blood Pressure 142/88 136/70 126/83 O2 Sat by Pulse Oximetry (%) 02/06/18 02/07/18 21:00 02:09 Temperature 98.3 F Pulse Rate 113 H Respiratory 20 Rate Blood Pressure 140/98 O2 Sat by Pulse 96 Oximetry (%) Gen: well appearing female sitting upright in NAD HEENT: NC/AT. Cardiac: S1/S2 no murmurs appreciated. Pulm: clear breath sounds bilaterally. No rales. Ext: WWP. No edema Labs: 02/06 Reviewed, K 3.4 Abnormal Lab Results 02/07/18 02/07/18 02/07/18 05:40 05:40 05:40 RBC 3.34 L Hgb 10.2 L Hct 31.7 L RDW 17.3 H PT with INR 14.70 H INR 1.24 H BUN 3 L Creatinine 0.5 L Random Glucose 131 H Phosphorus 2.0 L Albumin 2.9 L A/P IMP: Metastatic endometrial cancer Intractable nausea, chronic pain- malignancy related Prolonged QTc in setting of opiates and Zofran Prior DVT Stable trivial pericardial effusion REC: 1. Replete electrolytes to ensure K>4 2. Daily ECG to assess QTc, last ECG 02/06 3. Cont Lovenox Remains hemodynamically stable with no significant change. Darvin Hopson MD
[2018-02-07 09:33] LABS: ALBUMIN 2.9 g/dl (3.4-5.0); ALK PHOS 83 U/L (45-117); ANION GAP 11 MMOL/L (8-16); BILIRUBIN,TOTAL 0.2 mg/dL (0.2-1); BLOOD UREA NITROGEN 3 mg/dL (7-18); CHLORIDE 100 mmol/L (98-107); CO2 26 mmol/L (21-32); CREATININE 0.5 mg/dL (0.55-1.3); GLUCOSE,RANDOM 131 mg/dL (74-106); MAGNESIUM 2.3 mg/dL (1.8-2.4); POTASSIUM 4.1 mmol/L (3.5-5.1); SGOT/AST 22 U/L (15-37); SGPT/ALT 16 U/L (13-61); SODIUM 137 mmol/L (136-145); TOT PROT 7.3 g/dl (6.4-8.2)
[2018-02-07] MEDS: ENOXAPARIN NA (PORCINE) 60 MG/0.6 ML DISP.SYRIN SQ SCH ×2 (10:35→22:23)
[2018-02-07] MEDS: PANTOPRAZOLE SODIUM 40 MG VIAL IVPB SCH (10:36)
[2018-02-07] MEDS: MAGNESIUM OXIDE 400 MG TABLET (FP) PO SCH ×2 (10:36→22:17)
[2018-02-07] MEDS: METHYL SALICYLATE/MENTHOL OINT 30 GM TUBE TP SCH ×2 (10:36→22:17)
[2018-02-07] MEDS: POLYETHYLENE GLYCOL 3350 119 GM BTL PO SCH (10:36)
[2018-02-07] MEDS ORDERED: PT OWN MED DRAWER 7, Y5N ONE ×2 (12:00→17:29)
--- NOTE | 2018-02-07 12:39 | PN ---
Progress Note (short form) - Note Progress Note: Bleeding stopped at TLC site. Intermittent pain relieved by dilaudid. More awake and alert today. Able to take Nystatin and Megace. Intake & Output 02/04/18 02/05/18 02/06/18 02/07/18 23:59 23:59 23:59 23:59 Intake Total 200 2315 1930 876 Balance 200 2315 1930 876 Weight 131 lb 131 lb Last Vital Signs Temp Pulse Resp BP Pulse Ox 98.1 F 114 H 20 129/73 100 02/07/18 09:00 02/07/18 09:00 02/07/18 09:00 02/07/18 09:00 02/07/18 09:00 Active Medications Acetaminophen (Tylenol -) 650 mg PO Q6H PRN PRN Reason: PAIN OR FEVER Acetaminophen/Butalbital/Caffeine (Fioricet -) 1 tablet PO Q4H PRN PRN Reason: HEADACHE Last Admin: 02/05/18 09:31 Dose: 1 tablet Albuterol/Ipratropium (Duoneb -) 1 amp NEB RQID [facility] Last Admin: 02/07/18 11:45 Dose: 1 amp Dexamethasone Sodium Phosphate (Decadron Injection -) 4 mg IVPB TID [facility] Last Admin: 02/07/18 07:08 Dose: 4 mg Docusate Sodium (Colace -) 100 mg PO TID [facility] Last Admin: 02/07/18 06:46 Dose: Not Given Enoxaparin Sodium (Lovenox -) 60 mg SQ BID [facility] Last Admin: 02/07/18 10:35 Dose: 60 mg Fat Emulsion Intravenous (Intralipid -) 250 ml IV DAILY@2200 [facility] Last Admin: 02/07/18 01:24 Dose: 250 ml Guaifenesin/Codeine Phosphate (Robitussin Ac -) 5 ml PO HS [facility] Last Admin: 02/06/18 22:14 Dose: Not Given Guaifenesin/Codeine Phosphate (Robitussin Ac -) 5 ml PO Q8H PRN PRN Reason: COUGH Hydromorphone HCl (Dilaudid Vial -) 1 mg IVPB Q4H PRN PRN Reason: PAIN LEVEL 6-10 Last Admin: 02/07/18 03:10 Dose: 1 mg Potassium Chloride 40 meq/ (Dextrose/Sodium Chloride) 1,020 mls @ 75 mls/hr IVPB ASDIR [facility] Last Admin: 02/06/18 14:26 Dose: 75 mls/hr Lorazepam (Ativan Injection -) 0.25 mg IVPUSH Q6H PRN PRN Reason: NAUSEA AND/OR VOMITING Magnesium Oxide (Mag-Ox -) 400 mg PO BID [facility] Stop: 02/07/18 23:59 Last Admin: 02/07/18 10:36 Dose: Not Given Megestrol Acetate (Megace Oral Suspension -) 40 mg PO Q6HPO [facility] Last Admin: 02/07/18 06:47 Dose: Not Given Methyl Salicylate (Nehemiah-Caceres -) 1 applic TP BID [facility] Last Admin: 02/07/18 10:36 Dose: Not Given Nystatin (Nystatin Oral Suspension -) 500,000 units PO Q6HPO [facility] Last Admin: 02/07/18 07:30 Dose: 500,000 units Pantoprazole Sodium (Protonix Iv) 40 mg IVPB DAILY [facility] Last Admin: 02/07/18 10:36 Dose: 40 mg Polyethylene Glycol (Miralax (For Daily Use) -) 17 gm PO DAILY [facility] Last Admin: 02/07/18 10:36 Dose: Not Given Constitutional: Yes: Uncomfortable due to pain HENT: Yes: (?) Thrush Cardiovascular: Yes: Regular Rate and Rhythm, S1, S2 Respiratory: Yes: Diminished Gastrointestinal: Yes: Normal Bowel Sounds, Soft Edema: No Neurological: Yes: Alert Labs: Laboratory Results - last 24 hr 02/07/18 02/07/18 02/07/18 05:40 05:40 05:40 WBC 6.9 RBC 3.34 L Hgb 10.2 L Hct 31.7 L MCV 95.1 MCH 30.4 MCHC 32.0 RDW 17.3 H Plt Count 207 MPV 7.6 Absolute Neuts (auto) 5.6 Neutrophils % 80.8 D Lymphocytes % 13.7 D Monocytes % 5.3 Eosinophils % 0.1 D Basophils % 0.1 Nucleated RBC % 0 PT with INR 14.70 H INR 1.24 H PTT (Actin FS) 25.9 Fibrinogen Sodium 137 Potassium 4.1 Chloride 100 Carbon Dioxide 26 Anion Gap 11 BUN 3 L Creatinine 0.5 L Creat Clearance w eGFR > 60 Random Glucose 131 H Calcium 9.0 Phosphorus 2.0 L Magnesium 2.3 Total Bilirubin 0.2 AST 22 ALT 16 Alkaline Phosphatase 83 Total Protein 7.3 Albumin 2.9 L 02/07/18 05:40 WBC RBC Hgb Hct MCV MCH MCHC RDW Plt Count MPV Absolute Neuts (auto) Neutrophils % Lymphocytes % Monocytes % Eosinophils % Basophils % Nucleated RBC % PT with INR INR PTT (Actin FS) Fibrinogen 366.0 Sodium Potassium Chloride Carbon Dioxide Anion Gap BUN Creatinine Creat Clearance w eGFR Random Glucose Calcium Phosphorus Magnesium Total Bilirubin AST ALT Alkaline Phosphatase Total Protein Albumin Problem List - Problems (1) Cancer associated pain Assessment/Plan: Code(s): G89.3 - NEOPLASM RELATED PAIN (ACUTE) (CHRONIC) (2) Endometrial malignant neoplasm Assessment/Plan: Code(s): C54.1 - MALIGNANT NEOPLASM OF ENDOMETRIUM (3) Decreased appetite Assessment/Plan: Code(s): R63.0 - ANOREXIA (4) Prolonged QT interval Assessment/Plan: Code(s): R94.31 - ABNORMAL ELECTROCARDIOGRAM [ECG] [EKG] (5) Thrush, oral Assessment/Plan: Code(s): B37.0 - CANDIDAL STOMATITIS (6) Hypokalemia Assessment/Plan: Code(s): E87.6 - HYPOKALEMIA PLAN: Thin liquids as tolerated with head turned to the left Nystatin: Avoid Azole due to prolonged QT Lovenox 60mg BID O2 as needed Megace QID Ativan PRN for nausea TPN to be started Avoid Reglan/Zofran due to prolonged QT Cardiac Telemetry monitoring DNR/DNI Dr Rea Problem List - Problems (1) Cancer associated pain Code(s): G89.3 - NEOPLASM RELATED PAIN (ACUTE) (CHRONIC) (2) Pericardial effusion Code(s): I31.3 - PERICARDIAL EFFUSION (NONINFLAMMATORY) (3) Endometrial malignant neoplasm Code(s): C54.1 - MALIGNANT NEOPLASM OF ENDOMETRIUM (4) Lung metastases Code(s): C78.00 - SECONDARY MALIGNANT NEOPLASM OF UNSPECIFIED LUNG (5) Tachycardia Code(s): R00.0 - TACHYCARDIA, UNSPECIFIED
--- NOTE | 2018-02-07 13:02 | PN ---
Progress Note, Physician - Current Medication List Current Medications: Active Medications Acetaminophen (Tylenol -) 650 mg PO Q6H PRN PRN Reason: PAIN OR FEVER Acetaminophen/Butalbital/Caffeine (Fioricet -) 1 tablet PO Q4H PRN PRN Reason: HEADACHE Last Admin: 02/05/18 09:31 Dose: 1 tablet Albuterol/Ipratropium (Duoneb -) 1 amp NEB RQID [facility] Last Admin: 02/07/18 11:45 Dose: 1 amp Dexamethasone Sodium Phosphate (Decadron Injection -) 4 mg IVPB TID [facility] Last Admin: 02/07/18 07:08 Dose: 4 mg Docusate Sodium (Colace -) 100 mg PO TID [facility] Last Admin: 02/07/18 06:46 Dose: Not Given Enoxaparin Sodium (Lovenox -) 60 mg SQ BID [facility] Last Admin: 02/07/18 10:35 Dose: 60 mg Fat Emulsion Intravenous (Intralipid -) 250 ml IV DAILY@2200 [facility] Last Admin: 02/07/18 01:24 Dose: 250 ml Guaifenesin/Codeine Phosphate (Robitussin Ac -) 5 ml PO HS [facility] Last Admin: 02/06/18 22:14 Dose: Not Given Guaifenesin/Codeine Phosphate (Robitussin Ac -) 5 ml PO Q8H PRN PRN Reason: COUGH Hydromorphone HCl (Dilaudid Vial -) 1 mg IVPB Q4H PRN PRN Reason: PAIN LEVEL 6-10 Last Admin: 02/07/18 12:40 Dose: 1 mg Potassium Chloride 40 meq/ (Dextrose/Sodium Chloride) 1,020 mls @ 75 mls/hr IVPB ASDIR [facility] Last Admin: 02/06/18 14:26 Dose: 75 mls/hr Potassium Chloride 40 meq/Potassium Phosphate 30 mm/Sodium Chloride 60 meq/ Calcium Gluconate 2,000 mg/Magnesium Sulfate 1.47 gm/Thiamine HCl 100 mg/ Multivitamins/Minerals 10 ml/Sterile Water/ Amino Acids/Dextrose 1,000 mls @ 41.66 mls/hr IVPB DAILY@1600 [facility] Fat Emulsion Intravenous (Intralipid -) 250 mls @ 20.833 mls/hr IV DAILY@2200 [facility] Lorazepam (Ativan Injection -) 0.25 mg IVPUSH Q6H PRN PRN Reason: NAUSEA AND/OR VOMITING Magnesium Oxide (Mag-Ox -) 400 mg PO BID [facility] Stop: 02/07/18 23:59 Last Admin: 02/07/18 10:36 Dose: Not Given Megestrol Acetate (Megace Oral Suspension -) 40 mg PO Q6HPO [facility] Last Admin: 02/07/18 12:43 Dose: 40 mg Methyl Salicylate (Nehemiah-Caceres -) 1 applic TP BID [facility] Last Admin: 02/07/18 10:36 Dose: Not Given Nystatin (Nystatin Oral Suspension -) 500,000 units PO Q6HPO [facility] Last Admin: 02/07/18 12:43 Dose: 500,000 units Pantoprazole Sodium (Protonix Iv) 40 mg IVPB DAILY [facility] Last Admin: 02/07/18 10:36 Dose: 40 mg Polyethylene Glycol (Miralax (For Daily Use) -) 17 gm PO DAILY [facility] Last Admin: 02/07/18 10:36 Dose: Not Given - Objective Vital Signs: Vital Signs Temperature 98.1 F 02/07/18 09:00 Pulse Rate 114 H 02/07/18 09:00 Respiratory Rate 20 02/07/18 09:00 Blood Pressure 129/73 02/07/18 09:00 O2 Sat by Pulse Oximetry (%) 100 02/07/18 09:00 Cardiovascular: Yes: S1, S2 Respiratory: Yes: On Nasal O2, Rhonchi Gastrointestinal: Yes: Normal Bowel Sounds, Soft Labs: CBC, BMP 02/07/18 05:40 02/07/18 05:40 INR, PTT INR 1.24 (0.83-1.09) H 02/07/18 05:40 Fibrinogen 366.0 mg/dL (238-498) 02/07/18 05:40 Assessment/Plan - Problems (1) Cancer associated pain Assessment/Plan: iv dilaudid pain consult dr mclean Code(s): G89.3 - NEOPLASM RELATED PAIN (ACUTE) (CHRONIC) (2) Endometrial malignant neoplasm Assessment/Plan: megace for anorexia oncology on board- plan for whole brain RT once nutritional status improves lovenox Code(s): C54.1 - MALIGNANT NEOPLASM OF ENDOMETRIUM (3) Decreased appetite Assessment/Plan: s/p barium swallow megace Code(s): R63.0 - ANOREXIA (4) Prolonged QT interval Assessment/Plan: tele monitoring Code(s): R94.31 - ABNORMAL ELECTROCARDIOGRAM [ECG] [EKG] (5) Thrush, oral Assessment/Plan: nystatin Code(s): B37.0 - CANDIDAL STOMATITIS (6) Hypokalemia Assessment/Plan: repelted -monitor Code(s): E87.6 - HYPOKALEMIA
[2018-02-07] MEDS: LORazepam 2 MG/ML SDV VIAL IVPUSH PRN (15:33)
[2018-02-07] MEDS: DEXTROSE 5%-0.45% SALINE 1,000 ML with POTASSIUM CHLORIDE 40 MEQ IVPB SCH (15:40)
[2018-02-07] MEDS ORDERED: POTASSIUM PHOSPHATE IVPB SCH (16:00)
[2018-02-07] MEDS ORDERED: POTASSIUM CHLORIDE IVPB SCH (16:00)
[2018-02-07] MEDS ORDERED: [UNRECOGNIZED DRUG - OTHER] IVPB SCH (16:00)
[2018-02-07] MEDS ORDERED: SODIUM CHLORIDE IVPB SCH (16:00)
--- NOTE | 2018-02-07 19:12 | PN ---
Progress Note, Physician Chief Complaint: Metastatic endometrial cancer History of Present Illness: C/o FREIRE when coughing, +congestion - Current Medication List Current Medications: Active Medications Acetaminophen (Tylenol -) 650 mg PO Q6H PRN PRN Reason: PAIN OR FEVER Acetaminophen/Butalbital/Caffeine (Fioricet -) 1 tablet PO Q4H PRN PRN Reason: HEADACHE Last Admin: 02/05/18 09:31 Dose: 1 tablet Albuterol/Ipratropium (Duoneb -) 1 amp NEB RQID [facility] Last Admin: 02/07/18 16:14 Dose: 1 amp Dexamethasone Sodium Phosphate (Decadron Injection -) 4 mg IVPB TID [facility] Last Admin: 02/07/18 13:42 Dose: 4 mg Docusate Sodium (Colace -) 100 mg PO TID [facility] Last Admin: 02/07/18 13:42 Dose: Not Given Enoxaparin Sodium (Lovenox -) 60 mg SQ BID [facility] Last Admin: 02/07/18 10:35 Dose: 60 mg Guaifenesin/Codeine Phosphate (Robitussin Ac -) 5 ml PO HS [facility] Last Admin: 02/06/18 22:14 Dose: Not Given Guaifenesin/Codeine Phosphate (Robitussin Ac -) 5 ml PO Q8H PRN PRN Reason: COUGH Hydromorphone HCl (Dilaudid Vial -) 1 mg IVPB Q4H PRN PRN Reason: PAIN LEVEL 6-10 Last Admin: 02/07/18 16:40 Dose: 1 mg Potassium Chloride 40 meq/Potassium Phosphate 30 mm/Sodium Chloride 60 meq/ Calcium Gluconate 2,000 mg/Magnesium Sulfate 1.47 gm/Thiamine HCl 100 mg/ Multivitamins/Minerals 10 ml/Folic Acid 1 mg/ Sterile Water / Amino Acids/ Dextrose 1,000 mls @ 41.66 mls/hr IVPB DAILY@1600 [facility] Last Admin: 02/07/18 15:30 Dose: 41.66 mls/hr Fat Emulsion Intravenous (Intralipid -) 250 mls @ 20.833 mls/hr IV DAILY@2200 [facility] Lorazepam (Ativan Injection -) 0.25 mg IVPUSH Q6H PRN PRN Reason: NAUSEA AND/OR VOMITING Last Admin: 02/07/18 15:33 Dose: 0.25 mg Magnesium Oxide (Mag-Ox -) 400 mg PO BID [facility] Stop: 02/07/18 23:59 Last Admin: 02/07/18 10:36 Dose: Not Given Megestrol Acetate (Megace Oral Suspension -) 40 mg PO Q6HPO [facility] Last Admin: 02/07/18 17:27 Dose: 40 mg Methyl Salicylate (Nehemiah-Caceres -) 1 applic TP BID [facility] Last Admin: 02/07/18 10:36 Dose: Not Given Nystatin (Nystatin Oral Suspension -) 500,000 units PO Q6HPO [facility] Last Admin: 02/07/18 17:27 Dose: 500,000 units Pantoprazole Sodium (Protonix Iv) 40 mg IVPB DAILY [facility] Last Admin: 02/07/18 10:36 Dose: 40 mg Polyethylene Glycol (Miralax (For Daily Use) -) 17 gm PO DAILY [facility] Last Admin: 02/07/18 10:36 Dose: Not Given - Objective Vital Signs: Vital Signs Temperature 98.2 F 02/07/18 14:00 Pulse Rate 100 H 02/07/18 14:00 Respiratory Rate 18 02/07/18 14:00 Blood Pressure 142/74 02/07/18 14:00 O2 Sat by Pulse Oximetry (%) 100 02/07/18 09:00 Constitutional: Yes: Calm, Mild Distress Eyes: Yes: Conjunctiva Clear Cardiovascular: Yes: Regular Rate and Rhythm Respiratory: Yes: Regular, Rhonchi Gastrointestinal: Yes: Abdomen, Obese, Distention Edema: No Psychiatric: Yes: Other (lethargic but easily arousable) Labs: CBC, BMP 02/07/18 05:40 02/07/18 05:40 INR, PTT INR 1.24 (0.83-1.09) H 02/07/18 05:40 Fibrinogen 366.0 mg/dL (238-498) 02/07/18 05:40
[2018-02-07] MEDS: guaiFENesin/CODEINE 5 ML UNIT-DOSE CUPS PO SCH (22:17)
[2018-02-07] MEDS: FAT EMULSIONS 250 ML IV SCH (22:41)
[2018-02-08] MEDS ORDERED: LORazepam 2 MG/ML SDV VIAL ONE (00:28)
[2018-02-08] MEDS ORDERED: LORazepam 2 MG/ML SDV VIAL IVPUSH ONE ×2 (00:30→02:00)
[2018-02-08] MEDS: LORazepam 2 MG/ML SDV VIAL IVPUSH PRN ×2 (01:05→17:21)
[2018-02-08] MEDS: HYDROmorphone HCl 2 MG/ML VIAL IVPB PRN ×5 (01:43→19:40)
[2018-02-08] MEDS: DOCUSATE SODIUM 100 MG CAPSULE (FP) PO SCH ×4 (06:12→22:17)
[2018-02-08] MEDS: NYSTATIN 500,000 UNITS/5 ML SUSPENSION PO SCH ×4 (06:12→14:10)
[2018-02-08] MEDS: MEGESTROL ACETATE 400 MG/10 ML UNIT DOSE CUP PO SCH ×5 (06:12→18:08)
[2018-02-08] MEDS: DEXAMETHASONE SOD PHOSPHATE 4 MG/1 ML VIAL IVPB SCH ×2 (06:32→14:10)
[2018-02-08] MEDS: ALBUTEROL SO4 2.5/IPRATROPIUM 0.5 INH SOL 3 ML VIAL.NEB. NEB SCH ×2 (08:20→12:20)
[2018-02-08 08:50] LABS: ALBUMIN 3.1 g/dl (3.4-5.0); ALK PHOS 79 U/L (45-117); ANION GAP 11 MMOL/L (8-16); BILIRUBIN,TOTAL 0.4 mg/dL (0.2-1); BLOOD UREA NITROGEN 10 mg/dL (7-18); CALCIUM 9.7 mg/dL (8.5-10.1); CHLORIDE 94 mmol/L (98-107); CO2 29 mmol/L (21-32); CREATININE 0.5 mg/dL (0.55-1.3); GLUCOSE,RANDOM 105 mg/dL (74-106); MAGNESIUM 2.2 mg/dL (1.8-2.4); PHOSPHOROUS 2.6 mg/dL (2.5-4.9); POTASSIUM 3.8 mmol/L (3.5-5.1); SGOT/AST 19 U/L (15-37); SGPT/ALT 17 U/L (13-61); SODIUM 134 mmol/L (136-145); TOT PROT 7.6 g/dl (6.4-8.2)
[2018-02-08] MEDS ORDERED: PT OWN MED DRAWER 7, Y5N ONE ×3 (09:44→23:23)
[2018-02-08] MEDS: ENOXAPARIN NA (PORCINE) 60 MG/0.6 ML DISP.SYRIN SQ SCH ×2 (10:11→22:57)
[2018-02-08] MEDS: PANTOPRAZOLE SODIUM 40 MG VIAL IVPB SCH (10:11)
[2018-02-08] MEDS: POLYETHYLENE GLYCOL 3350 119 GM BTL PO SCH ×2 (10:12→10:36)
[2018-02-08] MEDS: METHYL SALICYLATE/MENTHOL OINT 30 GM TUBE TP SCH (10:35)
--- NOTE | 2018-02-08 14:15 | PN ---
Progress Note, Physician - Current Medication List Current Medications: Active Medications Acetaminophen (Tylenol -) 650 mg PO Q6H PRN PRN Reason: PAIN OR FEVER Acetaminophen/Butalbital/Caffeine (Fioricet -) 1 tablet PO Q4H PRN PRN Reason: HEADACHE Last Admin: 02/05/18 09:31 Dose: 1 tablet Albuterol/Ipratropium (Duoneb -) 1 amp NEB RQID [facility] Last Admin: 02/08/18 12:20 Dose: 1 amp Dexamethasone Sodium Phosphate (Decadron Injection -) 4 mg IVPB TID [facility] Last Admin: 02/08/18 06:32 Dose: 4 mg Docusate Sodium (Colace -) 100 mg PO TID [facility] Last Admin: 02/08/18 06:12 Dose: Not Given Enoxaparin Sodium (Lovenox -) 60 mg SQ BID [facility] Last Admin: 02/08/18 10:11 Dose: 60 mg Guaifenesin/Codeine Phosphate (Robitussin Ac -) 5 ml PO HS [facility] Last Admin: 02/07/18 22:17 Dose: Not Given Guaifenesin/Codeine Phosphate (Robitussin Ac -) 5 ml PO Q8H PRN PRN Reason: COUGH Hydromorphone HCl (Dilaudid Vial -) 1 mg IVPB Q4H PRN PRN Reason: PAIN LEVEL 6-10 Last Admin: 02/08/18 11:34 Dose: 1 mg Potassium Chloride 40 meq/Potassium Phosphate 30 mm/Sodium Chloride 60 meq/ Calcium Gluconate 2,000 mg/Magnesium Sulfate 1.47 gm/Thiamine HCl 100 mg/ Multivitamins/Minerals 10 ml/Folic Acid 1 mg/ Sterile Water / Amino Acids/ Dextrose 1,000 mls @ 41.66 mls/hr IVPB DAILY@1600 [facility] Stop: 02/08/18 15:59 Last Admin: 02/07/18 15:30 Dose: 41.66 mls/hr Fat Emulsion Intravenous (Intralipid -) 250 mls @ 20.833 mls/hr IV DAILY@2200 [facility] Last Admin: 02/07/18 22:41 Dose: 20.833 mls/hr Potassium Chloride 60 meq/Potassium Phosphate 15 mm/Sodium Chloride 80 meq/ Calcium Gluconate 2,000 mg/Magnesium Sulfate 1.47 gm/Thiamine HCl 100 mg/ Multivitamins/Minerals 10 ml/Folic Acid 1 mg/ Sterile Water / Amino Acids/ Dextrose 1,500 mls @ 62.5 mls/hr IVPB DAILY@1600 [facility] Lorazepam (Ativan Injection -) 0.25 mg IVPUSH Q6H PRN PRN Reason: NAUSEA AND/OR VOMITING Last Admin: 02/08/18 01:05 Dose: 0.25 mg Megestrol Acetate (Megace Oral Suspension -) 40 mg PO Q6HPO [facility] Last Admin: 02/08/18 10:10 Dose: 40 mg Methyl Salicylate (Nehemiah-Caceres -) 1 applic TP BID [facility] Last Admin: 02/08/18 10:35 Dose: Not Given Nystatin (Nystatin Oral Suspension -) 500,000 units PO Q6HPO [facility] Last Admin: 02/08/18 10:09 Dose: 500,000 units Pantoprazole Sodium (Protonix Iv) 40 mg IVPB DAILY [facility] Last Admin: 02/08/18 10:11 Dose: 40 mg Polyethylene Glycol (Miralax (For Daily Use) -) 17 gm PO DAILY [facility] Last Admin: 02/08/18 10:36 Dose: Not Given - Objective Vital Signs: Vital Signs Temperature 97.6 F 02/08/18 08:44 Pulse Rate 115 H 02/08/18 08:44 Respiratory Rate 24 H 02/08/18 09:00 Blood Pressure 136/52 L 02/08/18 08:44 O2 Sat by Pulse Oximetry (%) 100 02/08/18 09:00 Cardiovascular: Yes: Tachycardia, S1, S2 Respiratory: Yes: Rales, Rhonchi Gastrointestinal: Yes: Normal Bowel Sounds, Soft Labs: CBC, BMP 02/07/18 05:40 02/08/18 06:25 INR, PTT INR 1.24 (0.83-1.09) H 02/07/18 05:40 Fibrinogen 366.0 mg/dL (238-498) 02/07/18 05:40 Assessment/Plan - Problems (1) Cancer associated pain Assessment/Plan: iv dilaudid pain consult dr mclean Code(s): G89.3 - NEOPLASM RELATED PAIN (ACUTE) (CHRONIC) (2) Endometrial malignant neoplasm Assessment/Plan: megace for anorexia oncology on board- plan for whole brain RT once nutritional status improves lovenox Code(s): C54.1 - MALIGNANT NEOPLASM OF ENDOMETRIUM (3) Decreased appetite Assessment/Plan: s/p barium swallow megace Code(s): R63.0 - ANOREXIA (4) Prolonged QT interval Assessment/Plan: tele monitoring Code(s): R94.31 - ABNORMAL ELECTROCARDIOGRAM [ECG] [EKG] (5) Thrush, oral Assessment/Plan: nystatin Code(s): B37.0 - CANDIDAL STOMATITIS (6) Hypokalemia Assessment/Plan: repelted -monitor Code(s): E87.6 - HYPOKALEMIA (7) Dyspnea Assessment/Plan: On oxygen Lasix X 1 cxr am (8) Tachycardia Assessment/Plan: Ekg
--- NOTE | 2018-02-08 14:19 | PN ---
Progress Note (short form) - Note Progress Note: Confused overnight. Sleeping after pain meds. Still with some upper airway stridor but better. NPO Intake & Output 02/05/18 02/06/18 02/07/18 02/08/18 23:59 23:59 23:59 23:59 Intake Total 23144 942 Balance 2314 1929 1943 942 Weight 131 lb Last Vital Signs Temp Pulse Resp BP Pulse Ox 97.6 F 115 H 24 H 136/52 L 100 02/08/18 08:44 02/08/18 08:44 02/08/18 09:00 02/08/18 08:44 02/08/18 09:00 Active Medications Acetaminophen (Tylenol -) 650 mg PO Q6H PRN PRN Reason: PAIN OR FEVER Acetaminophen/Butalbital/Caffeine (Fioricet -) 1 tablet PO Q4H PRN PRN Reason: HEADACHE Last Admin: 02/05/18 09:31 Dose: 1 tablet Albuterol/Ipratropium (Duoneb -) 1 amp NEB RQID [facility] Last Admin: 02/08/18 12:20 Dose: 1 amp Dexamethasone Sodium Phosphate (Decadron Injection -) 4 mg IVPB TID [facility] Last Admin: 02/08/18 14:10 Dose: 4 mg Docusate Sodium (Colace -) 100 mg PO TID [facility] Last Admin: 02/08/18 14:06 Dose: Not Given Enoxaparin Sodium (Lovenox -) 60 mg SQ BID [facility] Last Admin: 02/08/18 10:11 Dose: 60 mg Furosemide (Lasix Injection -) 40 mg IVPUSH ONCE ONE Stop: 02/08/18 14:13 Guaifenesin/Codeine Phosphate (Robitussin Ac -) 5 ml PO HS [facility] Last Admin: 02/07/18 22:17 Dose: Not Given Guaifenesin/Codeine Phosphate (Robitussin Ac -) 5 ml PO Q8H PRN PRN Reason: COUGH Hydromorphone HCl (Dilaudid Vial -) 1 mg IVPB Q4H PRN PRN Reason: PAIN LEVEL 6-10 Last Admin: 02/08/18 11:34 Dose: 1 mg Potassium Chloride 40 meq/Potassium Phosphate 30 mm/Sodium Chloride 60 meq/ Calcium Gluconate 2,000 mg/Magnesium Sulfate 1.47 gm/Thiamine HCl 100 mg/ Multivitamins/Minerals 10 ml/Folic Acid 1 mg/ Sterile Water / Amino Acids/ Dextrose 1,000 mls @ 41.66 mls/hr IVPB DAILY@1600 [facility] Stop: 02/08/18 15:59 Last Admin: 02/07/18 15:30 Dose: 41.66 mls/hr Fat Emulsion Intravenous (Intralipid -) 250 mls @ 20.833 mls/hr IV DAILY@2200 [facility] Last Admin: 02/07/18 22:41 Dose: 20.833 mls/hr Potassium Chloride 60 meq/Potassium Phosphate 15 mm/Sodium Chloride 80 meq/ Calcium Gluconate 2,000 mg/Magnesium Sulfate 1.47 gm/Thiamine HCl 100 mg/ Multivitamins/Minerals 10 ml/Folic Acid 1 mg/ Sterile Water / Amino Acids/ Dextrose 1,500 mls @ 62.5 mls/hr IVPB DAILY@1600 [facility] Lorazepam (Ativan Injection -) 0.25 mg IVPUSH Q6H PRN PRN Reason: NAUSEA AND/OR VOMITING Last Admin: 02/08/18 01:05 Dose: 0.25 mg Megestrol Acetate (Megace Oral Suspension -) 40 mg PO Q6HPO [facility] Last Admin: 02/08/18 14:11 Dose: 40 mg Methyl Salicylate (Nehemiah-Caceres -) 1 applic TP BID [facility] Last Admin: 02/08/18 10:35 Dose: Not Given Nystatin (Nystatin Oral Suspension -) 500,000 units PO Q6HPO [facility] Last Admin: 02/08/18 14:10 Dose: 500,000 units Pantoprazole Sodium (Protonix Iv) 40 mg IVPB DAILY [facility] Last Admin: 02/08/18 10:11 Dose: 40 mg Polyethylene Glycol (Miralax (For Daily Use) -) 17 gm PO DAILY [facility] Last Admin: 02/08/18 10:36 Dose: Not Given Constitutional: Yes: Sedated HENT: Yes: (?) Thrush Cardiovascular: Yes: Regular Rate and Rhythm, S1, S2 Respiratory: Yes: Diminished Gastrointestinal: Yes: Normal Bowel Sounds, Soft Edema: No Neurological: Yes: sedated Labs: Laboratory Results - last 24 hr 02/08/18 06:25 Sodium 134 L Potassium 3.8 Chloride 94 L Carbon Dioxide 29 Anion Gap 11 BUN 10 Creatinine 0.5 L Creat Clearance w eGFR > 60 Random Glucose 105 Calcium 9.7 Phosphorus 2.6 Magnesium 2.2 Total Bilirubin 0.4 AST 19 ALT 17 Alkaline Phosphatase 79 Total Protein 7.6 Albumin 3.1 L Problem List - Problems (1) Cancer associated pain Assessment/Plan: Code(s): G89.3 - NEOPLASM RELATED PAIN (ACUTE) (CHRONIC) (2) Endometrial malignant neoplasm Assessment/Plan: Code(s): C54.1 - MALIGNANT NEOPLASM OF ENDOMETRIUM (3) Decreased appetite Assessment/Plan: Code(s): R63.0 - ANOREXIA (4) Prolonged QT interval Assessment/Plan: Code(s): R94.31 - ABNORMAL ELECTROCARDIOGRAM [ECG] [EKG] (5) Thrush, oral Assessment/Plan: Code(s): B37.0 - CANDIDAL STOMATITIS (6) Hypokalemia Assessment/Plan: Code(s): E87.6 - HYPOKALEMIA PLAN: NPO expect for necessary PO meds Nystatin: Avoid Azole due to prolonged QT Lovenox 60mg BID O2 as needed Megace QID Ativan PRN for nausea TPN adjusted Avoid Reglan/Zofran due to prolonged QT Cardiac Telemetry monitoring DNR/DNI Dr Rea Problem List - Problems (1) Cancer associated pain Code(s): G89.3 - NEOPLASM RELATED PAIN (ACUTE) (CHRONIC) (2) Pericardial effusion Code(s): I31.3 - PERICARDIAL EFFUSION (NONINFLAMMATORY) (3) Endometrial malignant neoplasm Code(s): C54.1 - MALIGNANT NEOPLASM OF ENDOMETRIUM (4) Lung metastases Code(s): C78.00 - SECONDARY MALIGNANT NEOPLASM OF UNSPECIFIED LUNG (5) Tachycardia Code(s): R00.0 - TACHYCARDIA, UNSPECIFIED
[2018-02-08] MEDS ORDERED: FUROSEMIDE 40 MG/4 ML INJECTABLE VIAL IVPUSH ONE (14:30)
[2018-02-08] MEDS ORDERED: POTASSIUM PHOSPHATE IVPB SCH (16:00)
[2018-02-08] MEDS ORDERED: [UNRECOGNIZED DRUG - OTHER] IVPB SCH (16:00)
[2018-02-08] MEDS ORDERED: SODIUM CHLORIDE IVPB SCH (16:00)
[2018-02-08] MEDS ORDERED: POTASSIUM CHLORIDE IVPB SCH (16:00)
--- NOTE | 2018-02-08 17:14 | EKG ---
Test Reason : Blood Pressure : / mmHG Vent. Rate : 090 BPM Atrial Rate : 090 BPM P-R Int : 114 ms QRS Dur : 080 ms QT Int : 312 ms P-R-T Axes : 050 -17 041 degrees QTc Int : 381 ms NORMAL SINUS RHYTHM MINIMAL VOLTAGE CRITERIA FOR LVH, MAY BE NORMAL VARIANT NONSPECIFIC T WAVE ABNORMALITY ABNORMAL ECG WHEN COMPARED WITH ECG OF 06-FEB-2018 09:44, QT HAS SHORTENED Confirmed by RENEE SPEARS, RONALD ([id number]) on 02/08/2018 5:14:36 PM Referred By: Uvaldo DALTON Confirmed By:RONALD DURAN MD
[2018-02-08] MEDS: FLUCONAZOLE 100 MG/NS 50 ML IVPB SCH (18:06)
[2018-02-08] MEDS: ALBUTEROL SO4 0.083% IH SOL 2.5 MG/3 ML VIAL.NEB. NEB SCH (21:00)
--- NOTE | 2018-02-08 21:01 | PN ---
Progress Note, Physician Chief Complaint: Metastatic endometrial cancer History of Present Illness: Less interactive today. Son at bedside - Current Medication List Current Medications: Active Medications Acetaminophen (Tylenol -) 650 mg PO Q6H PRN PRN Reason: PAIN OR FEVER Acetaminophen/Butalbital/Caffeine (Fioricet -) 1 tablet PO Q4H PRN PRN Reason: HEADACHE Last Admin: 02/05/18 09:31 Dose: 1 tablet Albuterol Sulfate (Ventolin 0.083% Nebulizer Soln -) [address] [facility] Dexamethasone Sodium Phosphate (Decadron Injection -) [address] [facility] Docusate Sodium (Colace -) [address] [facility] Last Admin: 02/08/18 14:06 Dose: Not Given Enoxaparin Sodium (Lovenox -) [address] [facility] Last Admin: 02/08/18 10:11 Dose: 60 mg Guaifenesin/Codeine Phosphate (Robitussin Ac -) [address] [facility] Last Admin: 02/07/18 22:17 Dose: Not Given Guaifenesin/Codeine Phosphate (Robitussin Ac -) 5 ml PO Q8H PRN PRN Reason: COUGH Hydromorphone HCl (Dilaudid Vial -) 1 mg IVPB Q4H PRN PRN Reason: PAIN LEVEL 6-10 Last Admin: 02/08/18 19:40 Dose: 1 mg Fat Emulsion Intravenous (Intralipid -) 250 mls @ 20.833 mls/hr IV DAILY@2200 [facility] Last Admin: 02/07/18 22:41 Dose: 20.833 mls/hr Potassium Chloride 60 meq/Potassium Phosphate 15 mm/Sodium Chloride 80 meq/ Calcium Gluconate 2,000 mg/Magnesium Sulfate 1.47 gm/Thiamine HCl 100 mg/ Multivitamins/Minerals 10 ml/Folic Acid 1 mg/ Sterile Water / Amino Acids/ Dextrose 1,500 mls @ 62.5 mls/hr IVPB DAILY@1600 [facility] Last Admin: 02/08/18 16:11 Dose: 62.5 mls/hr Fluconazole (Diflucan 100 Mg/Ns Premixed Ivpb -) 50 mls @ 50 mls/hr IVPB DAILY [facility] Last Admin: 02/08/18 18:06 Dose: 50 mls/hr Lorazepam (Ativan Injection -) 0.25 mg IVPUSH Q6H PRN PRN Reason: NAUSEA AND/OR VOMITING Last Admin: 02/08/18 17:21 Dose: 0.25 mg Megestrol Acetate (Megace Oral Suspension -) [address] [facility] Last Admin: 02/08/18 18:08 Dose: 40 mg Methyl Salicylate (Nehemiah-Caceres -) [address] [facility] Last Admin: 02/08/18 10:35 Dose: Not Given Pantoprazole Sodium (Protonix Iv) [address] [facility] Last Admin: 02/08/18 10:11 Dose: 40 mg Polyethylene Glycol (Miralax (For Daily Use) -) [address] [facility] Last Admin: 02/08/18 10:36 Dose: Not Given - Objective Vital Signs: Vital Signs Temperature 98.8 F 02/08/18 17:30 Pulse Rate 102 H 02/08/18 17:30 Respiratory Rate 18 02/08/18 17:30 Blood Pressure 139/88 02/08/18 17:30 O2 Sat by Pulse Oximetry (%) 100 02/08/18 09:00 Constitutional: Yes: Mild Distress Eyes: Yes: Conjunctiva Clear Cardiovascular: Yes: Regular Rate and Rhythm Respiratory: Yes: Cough, Rhonchi, Tachypnea Gastrointestinal: Yes: Soft Edema: No Labs: CBC, BMP 02/07/18 05:40 02/08/18 06:25 INR, PTT INR 1.24 (0.83-1.09) H 02/07/18 05:40 Fibrinogen 366.0 mg/dL (238-498) 02/07/18 05:40 Problem List - Problems (1) Endometrial malignant neoplasm Assessment/Plan: 57F with 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 Started on steroids, without symptomatic improvement so far. Plan for GOC discussions, ?benefit of WBRT given overall condition, can discuss with rad onc Pt is DNI/DNR Code(s): C54.1 - MALIGNANT NEOPLASM OF ENDOMETRIUM
[2018-02-08] MEDS ORDERED: DEXAMETHASONE SOD PHOSPHATE 4 MG/1 ML VIAL IVPUSH SCH (22:00)
[2018-02-08] MEDS: FAT EMULSIONS 250 ML IV SCH (22:46)
[2018-02-08] MEDS: DEXAMETHASONE SOD PHOSPHATE 4 MG/1 ML VIAL IVPUSH SCH (22:53)
[2018-02-08] MEDS: guaiFENesin/CODEINE 5 ML UNIT-DOSE CUPS PO SCH (22:59)
[2018-02-09] MEDS ORDERED: PT OWN MED DRAWER 7, Y5N ONE ×4 (00:10→09:49)
[2018-02-09] MEDS: METHYL SALICYLATE/MENTHOL OINT 30 GM TUBE TP SCH ×3 (00:11→23:10)
[2018-02-09] MEDS: MEGESTROL ACETATE 400 MG/10 ML UNIT DOSE CUP PO SCH ×3 (00:11→12:41)
[2018-02-09] MEDS: HYDROmorphone HCl 2 MG/ML VIAL IVPB PRN ×5 (00:18→23:06)
[2018-02-09] MEDS: LORazepam 2 MG/ML SDV VIAL IVPUSH PRN (01:21)
[2018-02-09] MEDS: DOCUSATE SODIUM 100 MG CAPSULE (FP) PO SCH (05:23)
[2018-02-09] MEDS: DEXAMETHASONE SOD PHOSPHATE 4 MG/1 ML VIAL IVPUSH SCH ×3 (05:37→23:03)
[2018-02-09 07:00] LABS: BASO % 0.2 % (0-2.0); HEMATOCRIT 35.7 % (32.4-45.2); HEMOGLOBIN 11.6 GM/dL (10.7-15.3); LYMPH % 7.9 % (8-40); MCH 30.8 pg (25.7-33.7); MCHC 32.4 g/dl (32.0-36.0); MEAN CELL VOLUME 94.8 fl (80-96); MEAN PLT VOLUME 7.6 fl (7.5-11.1); MONO % 5.9 % (3.8-10.2); PLATELET COUNT 231 K/MM3 (134-434); RBC 3.76 M/mm3 (3.60-5.2); RDW 17.7 % (11.6-15.6); WHITE BLOOD COUNT 9.8 K/mm3 (4.0-10.0)
[2018-02-09] MEDS: ALBUTEROL SO4 0.083% IH SOL 2.5 MG/3 ML VIAL.NEB. NEB SCH ×2 (07:15→13:43)
[2018-02-09 08:22] LABS: ALBUMIN 3.2 g/dl (3.4-5.0); ALK PHOS 76 U/L (45-117); ANION GAP 10 MMOL/L (8-16); BILIRUBIN,TOTAL 0.2 mg/dL (0.2-1); BLOOD UREA NITROGEN 15 mg/dL (7-18); CALCIUM 9.7 mg/dL (8.5-10.1); CHLORIDE 91 mmol/L (98-107); CO2 27 mmol/L (21-32); CREATININE 0.5 mg/dL (0.55-1.3); GLUCOSE,RANDOM 153 mg/dL (74-106); MAGNESIUM 2.2 mg/dL (1.8-2.4); PHOSPHOROUS 2.5 mg/dL (2.5-4.9); POTASSIUM 4.4 mmol/L (3.5-5.1); SGOT/AST 20 U/L (15-37); SGPT/ALT 18 U/L (13-61); SODIUM 128 mmol/L (136-145); TOT PROT 7.9 g/dl (6.4-8.2)
--- NOTE | 2018-02-09 09:00 | PN ---
Progress Note, Physician Chief Complaint: seen and examined QTc normal On Diflucan Having waves of nausea - Current Medication List Current Medications: Active Medications Acetaminophen (Tylenol -) 650 mg PO Q6H PRN PRN Reason: PAIN OR FEVER Acetaminophen/Butalbital/Caffeine (Fioricet -) 1 tablet PO Q4H PRN PRN Reason: HEADACHE Last Admin: 02/05/18 09:31 Dose: 1 tablet Albuterol Sulfate (Ventolin 0.083% Nebulizer Soln -) 1 amp NEB RTID [facility] Last Admin: 02/09/18 07:15 Dose: 1 amp Dexamethasone Sodium Phosphate (Decadron Injection -) 8 mg IVPUSH TID [facility] Last Admin: 02/09/18 05:37 Dose: 8 mg Docusate Sodium (Colace -) 100 mg PO TID [facility] Last Admin: 02/09/18 05:23 Dose: Not Given Enoxaparin Sodium (Lovenox -) 60 mg SQ BID [facility] Last Admin: 02/08/18 22:57 Dose: 60 mg Guaifenesin/Codeine Phosphate (Robitussin Ac -) 5 ml PO HS [facility] Last Admin: 02/08/18 22:59 Dose: Not Given Guaifenesin/Codeine Phosphate (Robitussin Ac -) 5 ml PO Q8H PRN PRN Reason: COUGH Hydromorphone HCl (Dilaudid Vial -) 1 mg IVPB Q4H PRN PRN Reason: PAIN LEVEL 6-10 Last Admin: 02/09/18 04:35 Dose: 1 mg Fat Emulsion Intravenous (Intralipid -) 250 mls @ 20.833 mls/hr IV DAILY@2200 [facility] Last Admin: 02/08/18 22:46 Dose: 20.833 mls/hr Potassium Chloride 60 meq/Potassium Phosphate 15 mm/Sodium Chloride 80 meq/ Calcium Gluconate 2,000 mg/Magnesium Sulfate 1.47 gm/Thiamine HCl 100 mg/ Multivitamins/Minerals 10 ml/Folic Acid 1 mg/ Sterile Water / Amino Acids/ Dextrose 1,500 mls @ 62.5 mls/hr IVPB DAILY@[facility] Last Admin: 02/08/18 16:11 Dose: 62.5 mls/hr Fluconazole (Diflucan 100 Mg/Ns Premixed Ivpb -) 50 mls @ 50 mls/hr IVPB DAILY [facility] Last Admin: 02/08/18 18:06 Dose: 50 mls/hr Lorazepam (Ativan Injection -) 0.25 mg IVPUSH Q6H PRN PRN Reason: NAUSEA AND/OR VOMITING Last Admin: 02/09/18 01:21 Dose: 0.25 mg Megestrol Acetate (Megace Oral Suspension -) 40 mg PO Q6HPO [facility] Last Admin: 02/09/18 05:37 Dose: 40 mg Methyl Salicylate (Nehemiah-Caceres -) 1 applic TP BID [facility] Last Admin: 02/09/18 00:11 Dose: Not Given Pantoprazole Sodium (Protonix Iv) 40 mg IVPB DAILY [facility] Last Admin: 02/08/18 10:11 Dose: 40 mg Polyethylene Glycol (Miralax (For Daily Use) -) 17 gm PO DAILY [facility] Last Admin: 02/08/18 10:36 Dose: Not Given - Objective Vital Signs: Vital Signs Temperature 98.2 F 02/09/18 05:47 Pulse Rate 109 H 02/09/18 05:47 Respiratory Rate 22 H 02/09/18 05:47 Blood Pressure 125/90 02/09/18 05:47 O2 Sat by Pulse Oximetry (%) 99 02/08/18 21:00 Constitutional: Yes: Calm Eyes: Yes: Other (anicteric) Cardiovascular: Yes: Regular Rate and Rhythm Respiratory: Yes: CTA Bilaterally (no wheezing or rales.) Gastrointestinal: Yes: Soft Neurological: Yes: Alert ...Motor Strength: WNL Labs: CBC, BMP 02/09/18 05:30 02/09/18 05:30 INR, PTT INR 1.24 (0.83-1.09) H 02/07/18 05:40 Fibrinogen 366.0 mg/dL (238-498) 02/07/18 05:40 - ....Imaging EKG: Image Reviewed (Sinus tachycardia) Assessment/Plan IMP: Metastatic endometrial cancer Intractable nausea, chronic pain- malignancy related Prolonged QTc in setting of opiates and Zofran Prior DVT Stable trivial pericardial effusion REC: 1. Repleting lytes 2. QTc normalized with repletion of electrolytes and adjustment of medications 3. Cont Lovenox Remains hemodynamically stable.
--- NOTE | 2018-02-09 09:24 | PN ---
Progress Note (short form) - Note Progress Note: No acute events overnight. Still with some upper airway stridor, but improved from over the weekend. Intake & Output 02/06/18 02/07/18 02/08/18 02/09/18 23:59 23:59 23:59 23:59 Intake Total 1929 1943 942 350 Balance 1929 1943 942 350 Weight 131 lb Last Vital Signs Temp Pulse Resp BP Pulse Ox 98.2 F 109 H 22 H 125/90 99 02/09/18 05:47 02/09/18 05:47 02/09/18 05:47 02/09/18 05:47 02/08/18 21:00 Active Medications Acetaminophen (Tylenol -) 650 mg PO Q6H PRN PRN Reason: PAIN OR FEVER Acetaminophen/Butalbital/Caffeine (Fioricet -) 1 tablet PO Q4H PRN PRN Reason: HEADACHE Last Admin: 02/05/18 09:31 Dose: 1 tablet Albuterol Sulfate (Ventolin 0.083% Nebulizer Soln -) 1 amp NEB RTID [facility] Last Admin: 02/09/18 07:15 Dose: 1 amp Dexamethasone Sodium Phosphate (Decadron Injection -) 8 mg IVPUSH TID [facility] Last Admin: 02/09/18 05:37 Dose: 8 mg Docusate Sodium (Colace -) 100 mg PO TID [facility] Last Admin: 02/09/18 05:23 Dose: Not Given Enoxaparin Sodium (Lovenox -) 60 mg SQ BID [facility] Last Admin: 02/08/18 22:57 Dose: 60 mg Guaifenesin/Codeine Phosphate (Robitussin Ac -) 5 ml PO HS [facility] Last Admin: 02/08/18 22:59 Dose: Not Given Guaifenesin/Codeine Phosphate (Robitussin Ac -) 5 ml PO Q8H PRN PRN Reason: COUGH Hydromorphone HCl (Dilaudid Vial -) 1 mg IVPB Q4H PRN PRN Reason: PAIN LEVEL 6-10 Last Admin: 02/09/18 04:35 Dose: 1 mg Fat Emulsion Intravenous (Intralipid -) 250 mls @ 20.833 mls/hr IV DAILY@2200 [facility] Last Admin: 02/08/18 22:46 Dose: 20.833 mls/hr Potassium Chloride 60 meq/Potassium Phosphate 15 mm/Sodium Chloride 80 meq/ Calcium Gluconate 2,000 mg/Magnesium Sulfate 1.47 gm/Thiamine HCl 100 mg/ Multivitamins/Minerals 10 ml/Folic Acid 1 mg/ Sterile Water / Amino Acids/ Dextrose 1,500 mls @ 62.5 mls/hr IVPB DAILY@1600 [facility] Last Admin: 02/08/18 16:11 Dose: 62.5 mls/hr Fluconazole (Diflucan 100 Mg/Ns Premixed Ivpb -) 50 mls @ 50 mls/hr IVPB DAILY [facility] Last Admin: 02/08/18 18:06 Dose: 50 mls/hr Lorazepam (Ativan Injection -) 0.25 mg IVPUSH Q6H PRN PRN Reason: NAUSEA AND/OR VOMITING Last Admin: 02/09/18 01:21 Dose: 0.25 mg Megestrol Acetate (Megace Oral Suspension -) 40 mg PO Q6HPO [facility] Last Admin: 02/09/18 05:37 Dose: 40 mg Methyl Salicylate (Nehemiah-Caceres -) 1 applic TP BID [facility] Last Admin: 02/09/18 00:11 Dose: Not Given Pantoprazole Sodium (Protonix Iv) 40 mg IVPB DAILY [facility] Last Admin: 02/08/18 10:11 Dose: 40 mg Polyethylene Glycol (Miralax (For Daily Use) -) 17 gm PO DAILY [facility] Last Admin: 02/08/18 10:36 Dose: Not Given Constitutional: Yes: Awake, mild discomfort HENT: Yes: (?) Thrush Cardiovascular: Yes: Regular Rate and Rhythm, S1, S2 Respiratory: Yes: Diminished Gastrointestinal: Yes: Normal Bowel Sounds, Soft Edema: No Neurological: Yes: awake, non-focal Labs: Laboratory Results - last 24 hr 02/09/18 02/09/18 05:30 05:30 WBC 9.8 RBC 3.76 Hgb 11.6 Hct 35.7 MCV 94.8 MCH 30.8 MCHC 32.4 RDW 17.7 H Plt Count 231 MPV 7.6 Absolute Neuts (auto) 8.4 H Neutrophils % 86.0 H Lymphocytes % 7.9 L D Monocytes % 5.9 Eosinophils % 0.0 D Basophils % 0.2 Nucleated RBC % 0 Sodium 128 L Potassium 4.4 Chloride 91 L Carbon Dioxide 27 Anion Gap 10 BUN 15 Creatinine 0.5 L Creat Clearance w eGFR > 60 Random Glucose 153 H Calcium 9.7 Phosphorus 2.5 Magnesium 2.2 Total Bilirubin 0.2 AST 20 ALT 18 Alkaline Phosphatase 76 Total Protein 7.9 Albumin 3.2 L Problem List - Problems (1) Cancer associated pain Assessment/Plan: Code(s): G89.3 - NEOPLASM RELATED PAIN (ACUTE) (CHRONIC) (2) Endometrial malignant neoplasm Assessment/Plan: Code(s): C54.1 - MALIGNANT NEOPLASM OF ENDOMETRIUM (3) Decreased appetite Assessment/Plan: Code(s): R63.0 - ANOREXIA (4) Prolonged QT interval Assessment/Plan: Code(s): R94.31 - ABNORMAL ELECTROCARDIOGRAM [ECG] [EKG] (5) Thrush, oral Assessment/Plan: Code(s): B37.0 - CANDIDAL STOMATITIS (6) Hypokalemia Assessment/Plan: Code(s): E87.6 - HYPOKALEMIA PLAN: NPO expect for necessary PO meds Diflucan Lovenox 60mg BID O2 as needed Megace QID Ativan PRN for nausea TPN adjusted Cardiac Telemetry monitoring DNR/DNI Plan for family meeting with [facility] tomorrow to further discuss C Dr Rea Problem List - Problems (1) Cancer associated pain Code(s): G89.3 - NEOPLASM RELATED PAIN (ACUTE) (CHRONIC) (2) Pericardial effusion Code(s): I31.3 - PERICARDIAL EFFUSION (NONINFLAMMATORY) (3) Endometrial malignant neoplasm Code(s): C54.1 - MALIGNANT NEOPLASM OF ENDOMETRIUM (4) Lung metastases Code(s): C78.00 - SECONDARY MALIGNANT NEOPLASM OF UNSPECIFIED LUNG (5) Tachycardia Code(s): R00.0 - TACHYCARDIA, UNSPECIFIED
[2018-02-09] MEDS: ENOXAPARIN NA (PORCINE) 60 MG/0.6 ML DISP.SYRIN SQ SCH ×2 (09:31→23:09)
--- NOTE | 2018-02-09 09:31 | PN ---
Progress Note (short form) - Note Progress Note: Neurology History of Present Illness: 57 year old female with a significant past medical history of stage 4 endometrial ca w/ mets to lungs and brain (chemo), DVT (on lovenox) and GERD who presented to the emergency department with intractable pain. Per notes, she reported pain all over her body, from her head to her lungs and extremities. Limited relief with current pain medication regiment. She has also been experiencing some difficulty eating and swallowing food secondary to pain. Pt endorsed associated nausea and vomiting. Consulted for headaches, initially seen with Dr. ashley at bedside, nephew of patient. Put on Fioricet and this AM more arouable. Headaches are better but undergoing further medical mgmt. Neurologically stable. Active Medications Acetaminophen (Tylenol -) 650 mg PO Q6H PRN PRN Reason: PAIN OR FEVER Acetaminophen/Butalbital/Caffeine (Fioricet -) 1 tablet PO Q4H PRN PRN Reason: HEADACHE Last Admin: 02/05/18 09:31 Dose: 1 tablet Albuterol Sulfate (Ventolin 0.083% Nebulizer Soln -) 1 amp NEB RTID [facility] Last Admin: 02/09/18 07:15 Dose: 1 amp Dexamethasone Sodium Phosphate (Decadron Injection -) 8 mg IVPUSH TID [facility] Last Admin: 02/09/18 05:37 Dose: 8 mg Docusate Sodium (Colace -) 100 mg PO TID [facility] Last Admin: 02/09/18 05:23 Dose: Not Given Enoxaparin Sodium (Lovenox -) 60 mg SQ BID [facility] Last Admin: 02/08/18 22:57 Dose: 60 mg Guaifenesin/Codeine Phosphate (Robitussin Ac -) 5 ml PO HS [facility] Last Admin: 02/08/18 22:59 Dose: Not Given Guaifenesin/Codeine Phosphate (Robitussin Ac -) 5 ml PO Q8H PRN PRN Reason: COUGH Hydromorphone HCl (Dilaudid Vial -) 1 mg IVPB Q4H PRN PRN Reason: PAIN LEVEL 6-10 Last Admin: 02/09/18 04:35 Dose: 1 mg Fat Emulsion Intravenous (Intralipid -) 250 mls @ 20.833 mls/hr IV DAILY@2200 [facility] Last Admin: 12/09/18 22:46 Dose: 20.833 mls/hr Potassium Chloride 60 meq/Potassium Phosphate 15 mm/Sodium Chloride 80 meq/ Calcium Gluconate 2,000 mg/Magnesium Sulfate 1.47 gm/Thiamine HCl 100 mg/ Multivitamins/Minerals 10 ml/Folic Acid 1 mg/ Sterile Water / Amino Acids/ Dextrose 1,500 mls @ 62.5 mls/hr IVPB DAILY@1600 [facility] Last Admin: 02/08/18 16:11 Dose: 62.5 mls/hr Fluconazole (Diflucan 100 Mg/Ns Premixed Ivpb -) 50 mls @ 50 mls/hr IVPB DAILY [facility] Last Admin: 02/08/18 18:06 Dose: 50 mls/hr Lorazepam (Ativan Injection -) 0.25 mg IVPUSH Q6H PRN PRN Reason: NAUSEA AND/OR VOMITING Last Admin: 02/09/18 01:21 Dose: 0.25 mg Megestrol Acetate (Megace Oral Suspension -) 40 mg PO Q6HPO [facility] Last Admin: 02/09/18 05:37 Dose: 40 mg Methyl Salicylate (Nehemiah-Caceres -) 1 applic TP BID [facility] Last Admin: 02/09/18 00:11 Dose: Not Given Pantoprazole Sodium (Protonix Iv) 40 mg IVPB DAILY [facility] Last Admin: 02/08/18 10:11 Dose: 40 mg Polyethylene Glycol (Miralax (For Daily Use) -) 17 gm PO DAILY [facility] Last Admin: 02/08/18 10:36 Dose: Not Given *Physical Exam Vital Signs Period Temp Pulse Resp BP Sys/Alexandra Pulse Ox Last 24 Hr 97.8 F-98.8 F 94-111 18-22 125-152/79-106 99 GENERAL: Awake, alert, and fully oriented, in no acute distress. HEAD: No signs of trauma EYES: PERRLA, EOMI, sclera anicteric, conjunctiva clear ENT: Auricles normal inspection, hearing grossly normal, nares patent, oropharynx clear without exudates. Moist mucosa NECK: Nontender, no stepoffs, Normal ROM, supple, no lymphadenopathy, JVD, or masses LUNGS: Breath sounds equal, clear to auscultation bilaterally. No wheezes, and no crackles HEART: Regular rate and rhythm, normal S1 and S2, no murmurs, rubs or gallops ABDOMEN: + diffuse tenderness, nondistended, normoactive bowel sounds. No guarding, no rebound. No masses EXTREMITIES: Normal range of motion, no edema. No clubbing or cyanosis. No cords, erythema, or tenderness NEUROLOGICAL: Cranial nerves II through XII intact. moves all extremities grossly, speech intact, sensory intact to tactile stim SKIN: Warm, Dry, normal turgor, no rashes or lesions noted. Imaging Last U/S dopple done in 12/2017 showed RLE DVT-being treated with Lovenox O/P Last Bone density-osteopenia Last MRI w/wo contrast [place] [facility] [place]18 showed 11 new metastases and some decreased metastases CT abd/pel on 12/01/17 showed no liver metastasis CBCD WBC 9.8 K/mm3 (4.0-10.0) 02/09/18 05:30 RBC 3.76 M/mm3 (3.60-5.2) 02/09/18 05:30 Hgb 11.6 GM/dL (10.7-15.3) 02/09/18 05:30 Hct 35.7 % (32.4-45.2) 02/09/18 05:30 MCV 94.8 fl (80-96) 02/09/18 05:30 MCHC 32.4 g/dl (32.0-36.0) 02/09/18 05:30 RDW 17.7 % (11.6-15.6) H 02/09/18 05:30 Plt Count 231 K/MM3 (134-434) 02/09/18 05:30 MPV 7.6 fl (7.5-11.1) 02/09/18 05:30 CMP Sodium 128 mmol/L (136-145) L 02/09/18 05:30 Potassium 4.4 mmol/L (3.5-5.1) 02/09/18 05:30 Chloride 91 mmol/L (98-107) L 02/09/18 05:30 Carbon Dioxide 27 mmol/L (21-32) 02/09/18 05:30 Anion Gap 10 MMOL/L (8-16) 02/09/18 05:30 BUN 15 mg/dL (7-18) 02/09/18 05:30 Creatinine 0.5 mg/dL (0.55-1.3) L 02/09/18 05:30 Creat Clearance w eGFR > 60 (>60) 02/09/18 05:30 Random Glucose 153 mg/dL (74-106) H 02/09/18 05:30 Calcium 9.7 mg/dL (8.5-10.1) 02/09/18 05:30 Total Bilirubin 0.2 mg/dL (0.2-1) 02/09/18 05:30 AST 20 U/L (15-37) 02/09/18 05:30 ALT 18 U/L (13-61) 02/09/18 05:30 Alkaline Phosphatase 76 U/L (45-117) 02/09/18 05:30 Total Protein 7.9 g/dl (6.4-8.2) 02/09/18 05:30 Albumin 3.2 g/dl (3.4-5.0) L 02/09/18 05:30 CARDIAC ENZYMES Creatine Kinase 73 IU/L (26-192) 02/04/18 10:20 Troponin I < 0.02 ng/ml (0.00-0.05) 02/04/18 10:20 Plan: 57 year old female with a significant past medical history of stage 4 endometrial ca w/ mets to lungs and brain (chemo), DVT (on lovenox) and GERD who presented to the emergency department with intractable pain. Per notes, she reported pain all over her body, from her head to her lungs and extremities. Limited relief with current pain medication regiment. She has also been experiencing some difficulty eating and swallowing food secondary to pain. Pt endorsed associated nausea and vomiting. Consulted for headaches, initially seen with Dr. ashley at bedside, nephew of patient. Fioricet has been helpful for the patient. Maintain hydration, increased PO intake as tolerated. Cognitive rest as able. Continue Fioricet for headache as needed.
[2018-02-09] MEDS: PANTOPRAZOLE SODIUM 40 MG VIAL IVPB SCH (09:32)
[2018-02-09] MEDS: POLYETHYLENE GLYCOL 3350 119 GM BTL PO SCH (09:32)
[2018-02-09] MEDS: FLUCONAZOLE 100 MG/NS 50 ML IVPB SCH (10:03)
--- NOTE | 2018-02-09 10:11 | PN ---
Progress Note, [facility] [facility] - Note Progress Note: MedicAL events noted. Case reviewed with medical staff. NPO except for Rickyce. Pt lethargic but arousable. Dilaudid/sleep meds likely affecting ICELO and responsiveness. May take a while for brain to clear and metabolize. Follows commands intermittently and repeated "hello" but limited articulatory excusion/impaired intelligibility. Increased risk of aspiration with impaired CIELO. Pt with noted strong cough. Pt on Clinimix, Diflucan IV started yesterday. Continue NPO. Mouth care.
[2018-02-09] MEDS ORDERED: FENTANYL PATCH WASTE MC PRN (11:52)
--- NOTE | 2018-02-09 11:52 | PN ---
Progress Note, Physician Chief Complaint: PATIENT IN BED IN MODERATE DISTRESS SOB, WHEEZING, COUGHING CACHECTIC APPEARANCE - Current Medication List Current Medications: Active Medications Acetaminophen (Tylenol -) 650 mg PO Q6H PRN PRN Reason: PAIN OR FEVER Acetaminophen/Butalbital/Caffeine (Fioricet -) 1 tablet PO Q4H PRN PRN Reason: HEADACHE Last Admin: 02/05/18 09:31 Dose: 1 tablet Albuterol Sulfate (Ventolin 0.083% Nebulizer Soln -) 1 amp NEB RTID [facility] Last Admin: 02/09/18 07:15 Dose: 1 amp Dexamethasone Sodium Phosphate (Decadron Injection -) 8 mg IVPUSH TID [facility] Last Admin: 02/09/18 05:37 Dose: 8 mg Docusate Sodium (Colace -) 100 mg PO TID [facility] Last Admin: 02/09/18 05:23 Dose: Not Given Enoxaparin Sodium (Lovenox -) 60 mg SQ BID [facility] Last Admin: 02/09/18 09:31 Dose: 60 mg Guaifenesin/Codeine Phosphate (Robitussin Ac -) 5 ml PO HS [facility] Last Admin: 02/08/18 22:59 Dose: Not Given Guaifenesin/Codeine Phosphate (Robitussin Ac -) 5 ml PO Q8H PRN PRN Reason: COUGH Hydromorphone HCl (Dilaudid Vial -) 1 mg IVPB Q4H PRN PRN Reason: PAIN LEVEL 6-10 Last Admin: 02/09/18 04:35 Dose: 1 mg Fat Emulsion Intravenous (Intralipid -) 250 mls @ 20.833 mls/hr IV DAILY@2200 [facility] Last Admin: 02/08/18 22:46 Dose: 20.833 mls/hr Potassium Chloride 60 meq/Potassium Phosphate 15 mm/Sodium Chloride 80 meq/ Calcium Gluconate 2,000 mg/Magnesium Sulfate 1.47 gm/Thiamine HCl 100 mg/ Multivitamins/Minerals 10 ml/Folic Acid 1 mg/ Sterile Water / Amino Acids/ Dextrose 1,500 mls @ 62.5 mls/hr IVPB DAILY@1600 [facility] Last Admin: 02/08/18 16:11 Dose: 62.5 mls/hr Fluconazole (Diflucan 100 Mg/Ns Premixed Ivpb -) 50 mls @ 50 mls/hr IVPB DAILY [facility] Last Admin: 12/10/18 10:03 Dose: 50 mls/hr Lorazepam (Ativan Injection -) 0.25 mg IVPUSH Q6H PRN PRN Reason: NAUSEA AND/OR VOMITING Last Admin: 02/09/18 01:21 Dose: 0.25 mg Megestrol Acetate (Megace Oral Suspension -) 40 mg PO Q6HPO [facility] Last Admin: 02/09/18 05:37 Dose: 40 mg Methyl Salicylate (Nehemiah-Caceres -) 1 applic TP BID [facility] Last Admin: 02/09/18 09:32 Dose: Not Given Pantoprazole Sodium (Protonix Iv) 40 mg IVPB DAILY [facility] Last Admin: 02/09/18 09:32 Dose: 40 mg Polyethylene Glycol (Miralax (For Daily Use) -) 17 gm PO DAILY [facility] Last Admin: 02/09/18 09:32 Dose: Not Given - Objective Vital Signs: Vital Signs Temperature 98.4 F 02/09/18 10:14 Pulse Rate 123 H 02/09/18 10:14 Respiratory Rate 25 H 02/09/18 10:14 Blood Pressure 153/83 02/09/18 10:14 O2 Sat by Pulse Oximetry (%) 98 02/09/18 09:00 Constitutional: Yes: Moderate Distress Eyes: Yes: Other Cardiovascular: Yes: Regular Rate and Rhythm Respiratory: Yes: Cough, Diminished, On Nasal O2, Poor Air Entry, Rhonchi Genitourinary: Yes: Incontinence Musculoskeletal: Yes: Muscle Weakness Neurological: Yes: Weakness Labs: CBC, BMP 02/09/18 05:30 02/09/18 05:30 INR, PTT INR 1.24 (0.83-1.09) H 02/07/18 05:40 Fibrinogen 366.0 mg/dL (238-498) 02/07/18 05:40 Problem List - Problems (1) Failure to thrive Code(s): [id number] - (2) Decreased appetite Code(s): R63.0 - ANOREXIA (3) Prolonged QT interval Code(s): R94.31 - ABNORMAL ELECTROCARDIOGRAM [ECG] [EKG] (4) Cancer associated pain Code(s): G89.3 - NEOPLASM RELATED PAIN (ACUTE) (CHRONIC) (5) Pneumonia Code(s): J18.9 - PNEUMONIA, UNSPECIFIED ORGANISM (6) Endometrial malignant neoplasm Code(s): C54.1 - MALIGNANT NEOPLASM OF ENDOMETRIUM (7) Lung metastases Code(s): C78.00 - SECONDARY MALIGNANT NEOPLASM OF UNSPECIFIED LUNG (8) Tachycardia Code(s): R00.0 - TACHYCARDIA, UNSPECIFIED Assessment/Plan PAIN CONTROL ADDING DIRAGESIC PATCH 02 SUPPORT SKIN CARE WILL NEED PALLIATIVE CONSULT POOR OVERALL PROGNOSIS FAMILY AWARE AND I DISCUSSED WITH THEM
[2018-02-09] MEDS: fentaNYL 25mcg/hr PATCH.TD72 TD SCH (12:41)
[2018-02-09] MEDS ORDERED: SCOPOLAMINE HYDROBROMIDE 1 PATCH PATCH.TD72 TD SCH (13:00)
--- NOTE | 2018-02-09 15:15 | EKG ---
Test Reason : Blood Pressure : / mmHG Vent. Rate : 114 BPM Atrial Rate : 114 BPM P-R Int : 168 ms QRS Dur : 080 ms QT Int : 312 ms P-R-T Axes : 048 000 060 degrees QTc Int : 430 ms SINUS TACHYCARDIA BIATRIAL ENLARGEMENT NONSPECIFIC T WAVE ABNORMALITY ABNORMAL ECG WHEN COMPARED WITH ECG OF 08-FEB-2018 14:45, T WAVE VARIATION VENT. RATE HAS INCREASED Confirmed by YASMINE SPEARS, MARYJO ([id number]) on 02/09/2018 3:14:50 PM Referred By: FRANCOISE Confirmed By:MARYJO UNDERWOOD MD
--- NOTE | 2018-02-09 15:28 | CON.ID ---
Consult Consult Specialty:: infectious disease Referred by:: dr nicole Reason for Consultation:: thrush - History of Present Illness Chief Complaint: intractable pain History of Present Illness: eating poorly cough history of endometrial cancer with mets to scalp, brain and lung- s/p chemo and RT recently at [facility] and treated for postobstructive pneumonia- had intractable cough now eating poorly- just made NPO due to risk for aspiration she is lethargic requires suctioning prn minimal secretions no travel no sick contacts - History Source History Provided By: Family Member, Medical Record - Past Medical History 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) Cardio/Vascular: Yes: Deep Vein Thrombosis Pulmonary: Yes: Pulmonary Embolus (DVT) ...: No Heme/Onc: Yes: Cancer (endometrial cancer), Other (DVT) - Past Surgical History Past Surgical History: Yes: Hysterectomy (johnna/bso 8 years ago) Additional Surgical History: right carpal tunnel surgery - Alcohol/Substance Use Hx Alcohol Use: No - Smoking History Smoking history: Never smoked Have you smoked in the past 12 months: No - Social History Usual Living Arrangement: With Spouse ADL: Independent History of Recent Travel: No Home Medications - Allergies Allergies/Adverse Reactions: Allergies Allergy/AdvReac Type Severity Reaction Status Date / Time Penicillins Allergy Rash Verified 02/04/18 09:50 - Home Medications Home Medications: Ambulatory Orders Oxycodone HCl 5 mg PO Q4H PRN 01/04/18 Enoxaparin [Lovenox -] 60 mg SQ DAILY 02/04/18 Family Disease History - Family Disease History Family Disease History: Other: Grandparent (blood transfusion ), Father (stomach cancer ) Other Family History: niece- breast cancer Review of Systems - Review of Systems Constitutional: reports: Lethargy, Loss of Appetite, Unintentional Wgt. Loss, Weakness Eyes: reports: No Symptoms HENT: reports: Difficult Swallowing Respiratory: reports: Cough, SOB. denies: Hemoptysis Gastrointestinal: reports: No Symptoms Genitourinary: reports: No Symptoms Physical Exam Vital Signs: Vital Signs Temperature 98.4 F 02/09/18 10:14 Pulse Rate 123 H 02/09/18 10:14 Respiratory Rate 25 H 02/09/18 10:14 Blood Pressure 153/83 02/09/18 10:14 O2 Sat by Pulse Oximetry (%) 98 02/09/18 09:00 Constitutional: Yes: Cachectic, Mild Distress HENT: Yes: Atraumatic, Normocephalic, Thrush Neck: Yes: Supple Cardiovascular: Yes: Regular Rate and Rhythm Respiratory: Yes: Rhonchi Gastrointestinal: Yes: Normal Bowel Sounds, Soft Extremities: Yes: WNL Edema: No Labs: CBC, BMP 02/09/18 05:30 02/09/18 05:30 Imaging - Results Chest X-ray: Report Reviewed, Image Reviewed Problem List - Problems (1) Cancer associated pain Code(s): G89.3 - NEOPLASM RELATED PAIN (ACUTE) (CHRONIC) (2) Thrush, oral Code(s): B37.0 - CANDIDAL STOMATITIS (3) Endometrial malignant neoplasm Code(s): C54.1 - MALIGNANT NEOPLASM OF ENDOMETRIUM Assessment/Plan would agree with the difulcan for the thrush in the hopes that this will decrease her swallowing difficulty, but clinically she doesnot have extensive thrush so I suspect the swalloing difficulty is related to the malignancy and 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
[2018-02-09] MEDS: SODIUM CHLORIDE IVPB SCH (17:00)
[2018-02-09] MEDS: POTASSIUM CHLORIDE IVPB SCH (17:00)
[2018-02-09] MEDS: POTASSIUM PHOSPHATE IVPB SCH (17:00)
[2018-02-09] MEDS: [UNRECOGNIZED DRUG - OTHER] IVPB SCH (17:00)
--- NOTE | 2018-02-09 17:52 | PN ---
Progress Note (short form) - Note Progress Note: Radiation Oncology (full consult to follow) 57 yo woman with hx of endometrial cancer 8yrs ago s/p JEOVANNY-BSO and RT, metastatic recurrence this year (scalp, brain, lung, mediastinum) underwent [place] [facility] receiving SRS to brain mets x9, lung and mediastinal RT, 8 cycles carbotaxol followed by 2 months of progressive difficulty swallowing, weakness, body aches, is admitted with FTT. Repeat MRI brain last month showed progressive brain mets (11 new lesions) with edema. On discussion with her she had decided with the radiation oncologist for no further treatment ( including whole brain RT) unless/until she clinically improved. Currently she's unable to swallow, lethargic, and minimally verbally responsive. at bedside. We spoke of her advanced disease and her known wishes to be made comfortable. At present, she is not a candidate for any further radiation therapy either. Family will make decision on GOC including hospice in the near future. Would continue supportive care, steroids, pain management for comfort.
--- NOTE | 2018-02-09 18:16 | PN ---
Teaching Attending Note Name of Resident: Priscilla Bowman ATTENDING PHYSICIAN STATEMENT I saw and evaluated the patient. I reviewed the resident's note and discussed the case with the resident. I agree with the resident's findings and plan as documented. ASSESSMENT AND PLAN: 57 yo woman with hx of endometrial cancer 8yrs ago s/p JEOVANNY-BSO and RT, metastatic recurrence this year (scalp, brain, lung, mediastinum) underwent tx at [facility] [place], receiving SRS to brain mets x9, lung and mediastinal RT, 8 cycles carbotaxol followed by 2 months of progressive difficulty swallowing, weakness, body aches, is admitted with FTT. Repeat MRI brain last month showed progressive brain mets (11 new lesions) with edema. Currently she's unable to swallow, lethargic, and minimally verbally responsive. Recommended hospice evaluation.
[2018-02-09] MEDS: FAT EMULSIONS 250 ML IV SCH (23:09)
[2018-02-10] MEDS: HYDROmorphone HCl 2 MG/ML VIAL IVPB PRN ×4 (03:02→20:18)
[2018-02-10] MEDS: DEXAMETHASONE SOD PHOSPHATE 4 MG/1 ML VIAL IVPUSH SCH ×3 (06:25→21:38)
[2018-02-10 07:07] LABS: ALBUMIN 3.2 g/dl (3.4-5.0); ALK PHOS 66 U/L (45-117); ANION GAP 9 MMOL/L (8-16); BILIRUBIN,TOTAL 0.4 mg/dL (0.2-1); BLOOD UREA NITROGEN 22 mg/dL (7-18); CALCIUM 9.5 mg/dL (8.5-10.1); CHLORIDE 95 mmol/L (98-107); CO2 26 mmol/L (21-32); CREATININE 0.5 mg/dL (0.55-1.3); GLUCOSE,RANDOM 170 mg/dL (74-106); MAGNESIUM 2.2 mg/dL (1.8-2.4); PHOSPHOROUS 3.3 mg/dL (2.5-4.9); POTASSIUM 5.2 mmol/L (3.5-5.1); SGOT/AST 45 U/L (15-37); SGPT/ALT 28 U/L (13-61); SODIUM 130 mmol/L (136-145); TOT PROT 7.6 g/dl (6.4-8.2)
--- NOTE | 2018-02-10 09:07 | PN ---
Progress Note (short form) - Note Progress Note: Neurology History of Present Illness: 57 year old female with a significant past medical history of stage 4 endometrial ca w/ mets to lungs and brain (chemo), DVT (on lovenox) and GERD who presented to the emergency department with intractable pain. Per notes, she reported pain all over her body, from her head to her lungs and extremities. Limited relief with current pain medication regiment. She has also been experiencing some difficulty eating and swallowing food secondary to pain. Pt endorsed associated nausea and vomiting. Consulted for headaches, initially seen with Dr. ashley at bedside, nephew of patient. Put on Fioricet. This AM more fatigued and not answering examiner regarding headaches. at bedside, discussed with him. Active Medications Acetaminophen (Tylenol -) 650 mg PO Q6H PRN PRN Reason: PAIN OR FEVER Acetaminophen/Butalbital/Caffeine (Fioricet -) 1 tablet PO Q4H PRN PRN Reason: HEADACHE Last Admin: 02/05/18 09:31 Dose: 1 tablet Albuterol Sulfate (Ventolin 0.083% Nebulizer Soln -) 1 amp NEB Q4H PRN PRN Reason: SHORTNESS OF BREATH Dexamethasone Sodium Phosphate (Decadron Injection -) 8 mg IVPUSH TID [facility] Last Admin: 02/10/18 06:25 Dose: 8 mg Enoxaparin Sodium (Lovenox -) 60 mg SQ BID [facility] Last Admin: 02/09/18 23:09 Dose: 60 mg Fentanyl (Duragesic 25mcg Patch -) 1 patch TD Q72H [facility] Stop: 02/16/18 11:52 Last Admin: 02/09/18 12:41 Dose: 1 patch Guaifenesin/Codeine Phosphate (Robitussin Ac -) 5 ml PO Q8H PRN PRN Reason: COUGH Hydromorphone HCl (Dilaudid Vial -) 1 mg IVPB Q3H PRN PRN Reason: PAIN LEVEL 6-10 Last Admin: 02/10/18 06:25 Dose: 1 mg Fat Emulsion Intravenous (Intralipid -) 250 mls @ 20.833 mls/hr IV DAILY@2200 STEPHENIE Last Admin: 02/09/18 23:09 Dose: 20.833 mls/hr Fluconazole (Diflucan 100 Mg/Ns Premixed Ivpb -) 50 mls @ 50 mls/hr IVPB DAILY [facility] Last Admin: 02/09/18 10:03 Dose: 50 mls/hr Potassium Chloride 40 meq/Potassium Phosphate 15 mm/Sodium Chloride 150 meq/ Calcium Gluconate 2,000 mg/Magnesium Sulfate 1.47 gm/Thiamine HCl 100 mg/ Multivitamins/Minerals 10 ml/Folic Acid 1 mg/ Sterile Water / Amino Acids/ Dextrose 1,500 mls @ 62.5 mls/hr IVPB DAILY@1600 [facility] Last Admin: 02/09/18 17:00 Dose: 62.5 mls/hr Lorazepam (Ativan Injection -) 0.25 mg IVPUSH Q6H PRN PRN Reason: NAUSEA AND/OR VOMITING Last Admin: 02/09/18 01:21 Dose: 0.25 mg Methyl Salicylate (Nehemiah-Caceres -) 1 applic TP BID [facility] Last Admin: 02/09/18 23:10 Dose: Not Given Miscellaneous (Duragesic Patch Waste) 1 each MC PRN PRN PRN Reason: PAIN Pantoprazole Sodium (Protonix Iv) 40 mg IVPB DAILY [facility] Last Admin: 02/09/18 09:32 Dose: 40 mg Polyethylene Glycol (Miralax (For Daily Use) -) 17 gm PO DAILY [facility] Last Admin: 02/09/18 09:32 Dose: Not Given *Physical Exam Vital Signs Period Temp Pulse Resp BP Sys/Alexandra Pulse Ox Last 24 Hr 97.2 F-98.8 F 84-123 22-25 138-153/76-96 99 GENERAL: Awake, alert, and fully oriented, in no acute distress. HEAD: No signs of trauma EYES: PERRLA, EOMI, sclera anicteric, conjunctiva clear ENT: Auricles normal inspection, hearing grossly normal, nares patent, oropharynx clear without exudates. Moist mucosa NECK: Nontender, no stepoffs, Normal ROM, supple, no lymphadenopathy, JVD, or masses LUNGS: Breath sounds equal, clear to auscultation bilaterally. No wheezes, and no crackles HEART: Regular rate and rhythm, normal S1 and S2, no murmurs, rubs or gallops ABDOMEN: + diffuse tenderness, nondistended, normoactive bowel sounds. No guarding, no rebound. No masses EXTREMITIES: Normal range of motion, no edema. No clubbing or cyanosis. No cords, erythema, or tenderness NEUROLOGICAL: Cranial nerves II through XII intact. moves all extremities grossly, speech intact, sensory intact to tactile stim SKIN: Warm, Dry, normal turgor, no rashes or lesions noted. Imaging Last U/S dopple done in 12/2017 showed RLE DVT-being treated with Lovenox O/P Last Bone density-osteopenia Last MRI w/wo contrast at [facility] on 01/19/18 showed 11 new metastases and some decreased metastases CT abd/pel on 12/01/17 showed no liver metastasis CBCD WBC 9.8 K/mm3 (4.0-10.0) 02/09/18 05:30 RBC 3.76 M/mm3 (3.60-5.2) 02/09/18 05:30 Hgb 11.6 GM/dL (10.7-15.3) 02/09/18 05:30 Hct 35.7 % (32.4-45.2) 02/09/18 05:30 MCV 94.8 fl (80-96) 02/09/18 05:30 MCHC 32.4 g/dl (32.0-36.0) 02/09/18 05:30 RDW 17.7 % (11.6-15.6) H 02/09/18 05:30 Plt Count 231 K/MM3 (134-434) 02/09/18 05:30 MPV 7.6 fl (7.5-11.1) 02/09/18 05:30 CMP Sodium 130 mmol/L (136-145) L 02/10/18 05:30 Potassium 5.2 mmol/L (3.5-5.1) H 02/10/18 05:30 Chloride 95 mmol/L (98-107) L 02/10/18 05:30 Carbon Dioxide 26 mmol/L (21-32) 02/10/18 05:30 Anion Gap 9 MMOL/L (8-16) 02/10/18 05:30 BUN 22 mg/dL (7-18) H 02/10/18 05:30 Creatinine 0.5 mg/dL (0.55-1.3) L 02/10/18 05:30 Creat Clearance w eGFR > 60 (>60) 02/10/18 05:30 Random Glucose 170 mg/dL (74-106) H 02/10/18 05:30 Calcium 9.5 mg/dL (8.5-10.1) 02/10/18 05:30 Total Bilirubin 0.4 mg/dL (0.2-1) 02/10/18 05:30 AST 45 U/L (15-37) H 02/10/18 05:30 ALT 28 U/L (13-61) 02/10/18 05:30 Alkaline Phosphatase 66 U/L (45-117) 02/10/18 05:30 Total Protein 7.6 g/dl (6.4-8.2) 02/10/18 05:30 Albumin 3.2 g/dl (3.4-5.0) L 02/10/18 05:30 CARDIAC ENZYMES Creatine Kinase 73 IU/L (26-192) 02/04/18 10:20 Troponin I < 0.02 ng/ml (0.00-0.05) 02/04/18 10:20 Plan: 57 year old female with a significant past medical history of stage 4 endometrial ca w/ mets to lungs and brain (chemo), DVT (on lovenox) and GERD who presented to the emergency department with intractable pain. Per notes, she reported pain all over her body, from her head to her lungs and extremities. Limited relief with current pain medication regiment. She has also been experiencing some difficulty eating and swallowing food secondary to pain. Pt endorsed associated nausea and vomiting. Consulted for headaches, initially seen with Dr. ashley at bedside, nephew of patient. Fioricet has been helpful for the patient. Maintain hydration, increased PO intake as tolerated. Cognitive rest as able. Continue Fioricet for headache as needed. Heme/Onc, Rad Onc notes reviewed. Continue to monitor mental status.
--- NOTE | 2018-02-10 09:22 | PN ---
Progress Note, Physician Chief Complaint: Citlali is sleeping comfortably Sharan at bedside, as he is every morning. TELE shows NSR and intermittent sinus tachycardia. History of Present Illness: She briefly woke, coughing. Denied SOB. - Current Medication List Current Medications: Active Medications Acetaminophen (Tylenol -) 650 mg PO Q6H PRN PRN Reason: PAIN OR FEVER Acetaminophen/Butalbital/Caffeine (Fioricet -) 1 tablet PO Q4H PRN PRN Reason: HEADACHE Last Admin: 02/05/18 09:31 Dose: 1 tablet Albuterol Sulfate (Ventolin 0.083% Nebulizer Soln -) 1 amp NEB Q4H PRN PRN Reason: SHORTNESS OF BREATH Dexamethasone Sodium Phosphate (Decadron Injection -) 8 mg IVPUSH TID [facility] Last Admin: 02/10/18 06:25 Dose: 8 mg Enoxaparin Sodium (Lovenox -) 60 mg SQ BID [facility] Last Admin: 02/09/18 23:09 Dose: 60 mg Fentanyl (Duragesic 25mcg Patch -) 1 patch TD Q72H [facility] Stop: 02/16/18 11:52 Last Admin: 02/09/18 12:41 Dose: 1 patch Guaifenesin/Codeine Phosphate (Robitussin Ac -) 5 ml PO Q8H PRN PRN Reason: COUGH Hydromorphone HCl (Dilaudid Vial -) 1 mg IVPB Q3H PRN PRN Reason: PAIN LEVEL 6-10 Last Admin: 02/10/18 06:25 Dose: 1 mg Fat Emulsion Intravenous (Intralipid -) 250 mls @ 20.833 mls/hr IV DAILY@2200 [facility] Last Admin: 02/09/18 23:09 Dose: 20.833 mls/hr Fluconazole (Diflucan 100 Mg/Ns Premixed Ivpb -) 50 mls @ 50 mls/hr IVPB DAILY [facility] Last Admin: 02/09/18 10:03 Dose: 50 mls/hr Potassium Chloride 40 meq/Potassium Phosphate 15 mm/Sodium Chloride 150 meq/ Calcium Gluconate 2,000 mg/Magnesium Sulfate 1.47 gm/Thiamine HCl 100 mg/ Multivitamins/Minerals 10 ml/Folic Acid 1 mg/ Sterile Water / Amino Acids/ Dextrose 1,500 mls @ 62.5 mls/hr IVPB DAILY@1600 [facility] Last Admin: 02/09/18 17:00 Dose: 62.5 mls/hr Lorazepam (Ativan Injection -) 0.25 mg IVPUSH Q6H PRN PRN Reason: NAUSEA AND/OR VOMITING Last Admin: 02/09/18 01:21 Dose: 0.25 mg Methyl Salicylate (Nehemiah-Caceres -) 1 applic TP BID [facility] Last Admin: 02/09/18 23:10 Dose: Not Given Miscellaneous (Duragesic Patch Waste) 1 each MC PRN PRN PRN Reason: PAIN Pantoprazole Sodium (Protonix Iv) 40 mg IVPB DAILY [facility] Last Admin: 02/09/18 09:32 Dose: 40 mg Polyethylene Glycol (Miralax (For Daily Use) -) 17 gm PO DAILY [facility] Last Admin: 02/09/18 09:32 Dose: Not Given - Objective Vital Signs: Vital Signs Temperature 97.2 F L 02/10/18 08:21 Pulse Rate 96 H 02/10/18 08:21 Respiratory Rate 24 H 02/10/18 08:21 Blood Pressure 138/76 02/10/18 08:21 O2 Sat by Pulse Oximetry (%) 99 02/09/18 20:32 Constitutional: Yes: No Distress Cardiovascular: Yes: Regular Rate and Rhythm (no murmurs) Respiratory: Yes: Rhonchi (no rales or wheezing.) Gastrointestinal: Yes: Soft Edema: No Labs: CBC, BMP 02/09/18 05:30 02/10/18 05:30 INR, PTT INR 1.24 (0.83-1.09) H 02/07/18 05:40 Fibrinogen 366.0 mg/dL (238-498) 02/07/18 05:40 Laboratory Tests 02/04/18 02/06/18 02/09/18 10:20 06:00 05:30 WBC 9.8 Hgb 11.6 Plt Count 231 Sodium 134 L Potassium 4.3 3.4 L BUN Creatinine 0.6 0.5 L Calcium Phosphorus Magnesium 1.7 L ALT Alkaline Phosphatase 02/09/18 02/10/18 05:30 05:30 WBC Hgb Plt Count Sodium 128 L 130 L Potassium 4.4 5.2 H BUN 15 22 H Creatinine 0.5 L 0.5 L Calcium 9.5 Phosphorus 3.3 Magnesium 2.2 ALT 28 Alkaline Phosphatase 66 - ....Imaging EKG: Image Reviewed Assessment/Plan IMP: Metastatic endometrial cancer Intractable nausea, chronic pain- malignancy related Prolonged QTc in setting of opiates and Zofran now resolved. Prior DVT Stable trivial pericardial effusion REC: 1. Comfort measures 2. QTc normalized with repletion of electrolytes and adjustment of medications 3. Cont Lovenox Remains hemodynamically stable.
[2018-02-10] MEDS ORDERED: PT OWN MED DRAWER 7, Y5N ONE (10:06)
--- NOTE | 2018-02-10 10:28 | CONS ---
DATE OF CONSULTATION: 02/09/2018 REFERRING PHYSICIAN: Nette Richard MD. REASON FOR CONSULTATION: Progressive brain metastases. HISTORY OF PRESENT ILLNESS: The patient is a 57-year-old woman with a history of endometrial cancer 8 years ago who underwent hysterectomy and radiation therapy. 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 Biopsy confirmed malignancy. Workup showed metastatic recurrence in the brain, lung, and mediastinum. She received treatments at [facility], completing stereotactic radiosurgery to 9 brain metastases as well as thoracic radiation therapy to the lung and mediastinum, followed by 8 cycles of carboplatin and Taxol according to the . The last chemotherapy was 2 months ago, and since then she has had progressive difficulty swallowing, generalized weakness and body aches, and is currently admitted for failure to thrive. A repeat MRI at [facility] in January showed progressive brain metastases (at least 11 new lesions) as well as response of previously treated lesions. There was edema. She elected to have no further radiation therapy with her radiation oncologist at that time. Currently she is unable to swallow and made n.p.o. She is on empiric Decadron. Per the , she has had a productive cough, headaches, nausea, vomiting, weight loss, anorexia. CT scans of the head, chest, abdomen, and pelvis showed a new liver mass and a decrease in the thoracic disease in the left upper lobe and mediastinal mj mass in the precarinal and subcarinal region. PAST MEDICAL HISTORY: GERD, deep venous thrombosis in the right lower extremity , right carpal tunnel surgery, JEOVANNY/BSO 8 years ago as noted previously. ALLERGIES: PENICILLIN. CURRENT MEDICATIONS: Decadron 8 mg IV q.8 hours, Fioricet p.r.n., Diflucan IV, Lovenox b.i.d., Ativan p.r.n., albuterol nebulizer p.r.n., MiraLax, Duragesic patch, Dilaudid p.r.n., Protonix. SOCIAL HISTORY: She lives with her . She has 2 adult children. She does not smoke or consume alcohol regularly. FAMILY HISTORY: Father had stomach cancer and niece had breast cancer. REVIEW OF SYSTEMS: Unobtainable from the patient due to mental status. PHYSICAL EXAMINATION: General: Cachectic female in moderate distress. is at the bedside. Vital Signs: Temperature 98.4, blood pressure 153/83, pulse 123, respiratory rate 25, SaO2 98% on 4 L nasal cannula. HEENT: Anicteric. No pallor. Moist mucous membranes. Neck: No mass. Chest: Mild stridor and wet cough. Abdomen: Benign. Neurologic: Lethargic. Arousable but minimally verbally responsive. Makes voluntary movements. Recognizes her . Does not follow any commands. RADIOLOGIC DATA: 1. CT head: Cannot rule out edema. No discrete mass lesion is identified on noncontrast study. 2. CT chest, abdomen, and pelvis: See HPI. LABORATORY DATA: WBC 9.8, hemoglobin 11.6, platelets 231. Sodium 128, potassium 4.4, BUN 15, creatinine 0.5. LFTs within normal limits. Albumin 3.2. PATHOLOGIC DATA: Per outside report, transbronchial biopsy of mediastinal mass June 23, 2017, poorly differentiated carcinoma, morphologically similar to prior metastatic carcinoma involving the dermis of the scalp. EGFR, ALK, and PD-L1 negative. IMPRESSION: A 57-year-old woman with recurrent and now progressive metastatic endometrial malignancy status post stereotactic radiosurgery and thoracic palliative radiotherapy and chemotherapy. She has progressive brain metastases with at least 11 new lesions associated with edema on a scan done 1 month ago. She is very lethargic and minimally verbal. On discussion with her , he informed me that she had decided [place] [facility] [place] no further treatment, including whole brain radiation therapy unless/until she clinically improved. We spoke of her advanced disease and her known wish to be made comfortable. At this time she is not a candidate for any further radiation therapy. The family will make final decisions on goals of care, including hospice. PLAN: Continue supportive care, steroids, and pain management to keep her comfortable. Thank you for asking me to participate in the care of this patient. LAURA ALVAREZ M.D. STACY/[id number] MTDD
[2018-02-10] MEDS: POLYETHYLENE GLYCOL 3350 119 GM BTL PO SCH (10:41)
[2018-02-10] MEDS: PANTOPRAZOLE SODIUM 40 MG VIAL IVPB SCH (10:41)
[2018-02-10] MEDS: FLUCONAZOLE 100 MG/NS 50 ML IVPB SCH (10:41)
[2018-02-10] MEDS: ENOXAPARIN NA (PORCINE) 60 MG/0.6 ML DISP.SYRIN SQ SCH ×2 (10:41→21:48)
[2018-02-10] MEDS: METHYL SALICYLATE/MENTHOL OINT 30 GM TUBE TP SCH ×2 (10:42→21:14)
--- NOTE | 2018-02-10 11:38 | PN ---
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 Inspiratory wheeze, unable to phonate. Suctioned thick secretions from bob- pharynx. Elicited one instance of improved phonation, followed by continued inspiratory wheeze. Pt reports no longer painful swallow? sec pain meds vs benefit of Nystatin? Defer PO trials for now Case reviewed with staff due to inspiratory wheeze.
--- NOTE | 2018-02-10 11:45 | PN ---
Progress Note (short form) - Note Progress Note: No acute events overnight. Still with some upper airway stridor, but improved. Pain seems adequately controlled. Constitutional: Yes: Awake, intermittent upper airway stridor HENT: Yes: (?) Thrush Cardiovascular: Yes: Regular Rate and Rhythm, S1, S2 Respiratory: Yes: Diminished, rhonchi Gastrointestinal: Yes: Normal Bowel Sounds, Soft Edema: No Neurological: Yes: lethargic, non-focal Labs: Laboratory Results - last 24 hr 02/10/18 02/10/18 05:30 11:14 Sodium 130 L Potassium 5.2 H Chloride 95 L Carbon Dioxide 26 Anion Gap 9 BUN 22 H Creatinine 0.5 L Creat Clearance w eGFR > 60 POC Glucometer 156 Random Glucose 170 H Calcium 9.5 Phosphorus 3.3 Magnesium 2.2 Total Bilirubin 0.4 AST 45 H ALT 28 Alkaline Phosphatase 66 Total Protein 7.6 Albumin 3.2 L Problem List - Problems (1) Cancer associated pain Assessment/Plan: Code(s): G89.3 - NEOPLASM RELATED PAIN (ACUTE) (CHRONIC) (2) Endometrial malignant neoplasm Assessment/Plan: Code(s): C54.1 - MALIGNANT NEOPLASM OF ENDOMETRIUM (3) Decreased appetite Assessment/Plan: Code(s): R63.0 - ANOREXIA (4) Prolonged QT interval Assessment/Plan: Code(s): R94.31 - ABNORMAL ELECTROCARDIOGRAM [ECG] [EKG] (5) Thrush, oral Assessment/Plan: Code(s): B37.0 - CANDIDAL STOMATITIS (6) Hypokalemia Assessment/Plan: Code(s): E87.6 - HYPOKALEMIA PLAN: NPO Diflucan Lovenox 60mg BID O2 as needed Ativan PRN for nausea TPN adjusted Cardiac Telemetry monitoring DNR/DNI Plan for family meeting with Care today to discuss [facility] Dr Rea Problem List - Problems (1) Cancer associated pain Code(s): G89.3 - NEOPLASM RELATED PAIN (ACUTE) (CHRONIC) (2) Pericardial effusion Code(s): I31.3 - PERICARDIAL EFFUSION (NONINFLAMMATORY) (3) Endometrial malignant neoplasm Code(s): C54.1 - MALIGNANT NEOPLASM OF ENDOMETRIUM (4) Lung metastases Code(s): C78.00 - SECONDARY MALIGNANT NEOPLASM OF UNSPECIFIED LUNG (5) Tachycardia Code(s): R00.0 - TACHYCARDIA, UNSPECIFIED
--- NOTE | 2018-02-10 12:55 | EKG ---
Test Reason : Blood Pressure : / mmHG Vent. Rate : 095 BPM Atrial Rate : 095 BPM P-R Int : 116 ms QRS Dur : 084 ms QT Int : 298 ms P-R-T Axes : 031 -15 074 degrees QTc Int : 374 ms NORMAL SINUS RHYTHM MINIMAL VOLTAGE CRITERIA FOR LVH, MAY BE NORMAL VARIANT NONSPECIFIC T WAVE ABNORMALITY ABNORMAL ECG WHEN COMPARED WITH ECG OF 10-FEB-2018 10:23, NO SIGNIFICANT CHANGE WAS FOUND Confirmed by Júnior Mccormick ([id number]) on 02/10/2018 12:55:09 PM Referred By: JASON CASEY DR Confirmed By:Júnior Mccormick
--- NOTE | 2018-02-10 15:19 | PN ---
Progress Note, Physician Chief Complaint: PATIENT FEELING BETTER TODAY STILL WEAK AND NPO FOR ESOPHAITIS/THRUSH - Current Medication List Current Medications: Active Medications Acetaminophen (Tylenol -) 650 mg PO Q6H PRN PRN Reason: PAIN OR FEVER Acetaminophen/Butalbital/Caffeine (Fioricet -) 1 tablet PO Q4H PRN PRN Reason: HEADACHE Last Admin: 02/05/18 09:31 Dose: 1 tablet Albuterol Sulfate (Ventolin 0.083% Nebulizer Soln -) 1 amp NEB Q4H PRN PRN Reason: SHORTNESS OF BREATH Dexamethasone Sodium Phosphate (Decadron Injection -) 8 mg IVPUSH TID [facility] Last Admin: 02/10/18 13:42 Dose: 8 mg Enoxaparin Sodium (Lovenox -) 60 mg SQ BID [facility] Last Admin: 02/10/18 10:41 Dose: 60 mg Fentanyl (Duragesic 25mcg Patch -) 1 patch TD Q72H [facility] Stop: 02/16/18 11:52 Last Admin: 02/09/18 12:41 Dose: 1 patch Guaifenesin/Codeine Phosphate (Robitussin Ac -) 5 ml PO Q8H PRN PRN Reason: COUGH Hydromorphone HCl (Dilaudid Vial -) 1 mg IVPB Q3H PRN PRN Reason: PAIN LEVEL 6-10 Last Admin: 02/10/18 13:41 Dose: 1 mg Fat Emulsion Intravenous (Intralipid -) 250 mls @ 20.833 mls/hr IV DAILY@2200 [facility] Last Admin: 02/09/18 23:09 Dose: 20.833 mls/hr Fluconazole (Diflucan 100 Mg/Ns Premixed Ivpb -) 50 mls @ 50 mls/hr IVPB DAILY [facility] Last Admin: 02/10/18 10:41 Dose: 50 mls/hr Potassium Chloride 40 meq/Potassium Phosphate 15 mm/Sodium Chloride 150 meq/ Calcium Gluconate 2,000 mg/Magnesium Sulfate 1.47 gm/Thiamine HCl 100 mg/ Multivitamins/Minerals 10 ml/Folic Acid 1 mg/ Sterile Water / Amino Acids/ Dextrose 1,500 mls @ 62.5 mls/hr IVPB DAILY@1600 [facility] Last Admin: 02/09/18 17:00 Dose: 62.5 mls/hr Lorazepam (Ativan Injection -) 0.25 mg IVPUSH Q6H PRN PRN Reason: NAUSEA AND/OR VOMITING Last Admin: 02/09/18 01:21 Dose: 0.25 mg Methyl Salicylate (Nehemiah-Caceres -) 1 applic TP BID [facility] Last Admin: 02/10/18 10:42 Dose: Not Given Miscellaneous (Duragesic Patch Waste) 1 each [facility] PRN PRN PRN Reason: PAIN Pantoprazole Sodium (Protonix Iv) 40 mg IVPB DAILY [facility] Last Admin: 02/10/18 10:41 Dose: 40 mg Polyethylene Glycol (Miralax (For Daily Use) -) 17 gm PO DAILY [facility] Last Admin: 02/10/18 10:41 Dose: Not Given - Objective Vital Signs: Vital Signs Temperature 97.2 F L 02/10/18 08:21 Pulse Rate 96 H 02/10/18 08:21 Respiratory Rate 24 H 02/10/18 09:00 Blood Pressure 138/76 02/10/18 08:21 O2 Sat by Pulse Oximetry (%) 99 02/10/18 09:00 Constitutional: Yes: Moderate Distress Eyes: Yes: WNL HENT: Yes: WNL Neck: Yes: WNL Cardiovascular: Yes: Regular Rate and Rhythm Respiratory: Yes: Diminished, Rhonchi Gastrointestinal: Yes: Soft Genitourinary: Yes: Incontinence Extremities: Yes: Other Edema: No Neurological: Yes: Other Labs: CBC, BMP 02/09/18 05:30 02/10/18 05:30 INR, PTT INR 1.24 (0.83-1.09) H 02/07/18 05:40 Fibrinogen 366.0 mg/dL (238-498) 02/07/18 05:40 Problem List - Problems (1) Failure to thrive Code(s): [id number] - (2) Decreased appetite Code(s): R63.0 - ANOREXIA (3) Prolonged QT interval Code(s): R94.31 - ABNORMAL ELECTROCARDIOGRAM [ECG] [EKG] (4) Cancer associated pain Code(s): G89.3 - NEOPLASM RELATED PAIN (ACUTE) (CHRONIC) (5) Pneumonia Code(s): J18.9 - PNEUMONIA, UNSPECIFIED ORGANISM (6) Endometrial malignant neoplasm Code(s): C54.1 - MALIGNANT NEOPLASM OF ENDOMETRIUM (7) Lung metastases Code(s): C78.00 - SECONDARY MALIGNANT NEOPLASM OF UNSPECIFIED LUNG (8) Tachycardia Code(s): R00.0 - TACHYCARDIA, UNSPECIFIED (9) Thrush, oral Code(s): B37.0 - CANDIDAL STOMATITIS Assessment/Plan DIFLUCAN FOR CANDIDIASIS/ORAL THRUSH TPN FOR NUTRITION DURAGESI PATCH 25MCG Q72HRS OOB TO CHAIR PT MYCOLOG TO GROIN PULM F/U IV STEROIDS
[2018-02-10] MEDS ORDERED: HYDROmorphone HCl 2 MG/ML VIAL IVPB PRN (17:01)
[2018-02-10] MEDS: POTASSIUM CHLORIDE IVPB SCH (17:12)
[2018-02-10] MEDS: [UNRECOGNIZED DRUG - OTHER] IVPB SCH (17:12)
[2018-02-10] MEDS: SODIUM CHLORIDE IVPB SCH (17:12)
[2018-02-10] MEDS: POTASSIUM PHOSPHATE IVPB SCH (17:12)
[2018-02-10] MEDS ORDERED: LORazepam 2 MG/ML SDV VIAL IVPUSH PRN ×2 (17:53→18:35)
[2018-02-10] MEDS ORDERED: LORazepam 2 MG/ML SDV VIAL ONE (20:47)
[2018-02-10] MEDS ORDERED: LORazepam 2 MG/ML SDV VIAL IVPUSH ONE (21:00)
[2018-02-10] MEDS: FAT EMULSIONS 250 ML IV SCH (21:41)
[2018-02-10] MEDS ORDERED: SCOPOLAMINE HYDROBROMIDE 1 PATCH PATCH.TD72 TD SCH (23:30)
[2018-02-11] MEDS: DEXAMETHASONE SOD PHOSPHATE 4 MG/1 ML VIAL IVPUSH SCH ×3 (06:23→22:53)
[2018-02-11] MEDS: ALBUTEROL SO4 0.083% IH SOL 2.5 MG/3 ML VIAL.NEB. NEB PRN (07:59)
[2018-02-11 08:01] LABS: ALBUMIN 3.3 g/dl (3.4-5.0); ALK PHOS 65 U/L (45-117); ANION GAP 10 MMOL/L (8-16); BILIRUBIN,TOTAL 0.8 mg/dL (0.2-1); BLOOD UREA NITROGEN 23 mg/dL (7-18); CALCIUM 9.7 mg/dL (8.5-10.1); CHLORIDE 96 mmol/L (98-107); CO2 28 mmol/L (21-32); CREATININE 0.6 mg/dL (0.55-1.3); GLUCOSE,RANDOM 131 mg/dL (74-106); MAGNESIUM 2.4 mg/dL (1.8-2.4); PHOSPHOROUS 2.5 mg/dL (2.5-4.9); POTASSIUM 4.2 mmol/L (3.5-5.1); SGOT/AST 88 U/L (15-37); SGPT/ALT 111 U/L (13-61); SODIUM 134 mmol/L (136-145); TOT PROT 7.4 g/dl (6.4-8.2)
--- NOTE | 2018-02-11 08:53 | PN ---
Progress Note, Physician Chief Complaint: Sleeping comfortably at bedside - Current Medication List Current Medications: Active Medications Acetaminophen (Tylenol -) 650 mg PO Q6H PRN PRN Reason: PAIN OR FEVER Albuterol Sulfate (Ventolin 0.083% Nebulizer Soln -) 1 amp NEB Q4H PRN PRN Reason: SHORTNESS OF BREATH Last Admin: 02/11/18 07:59 Dose: 1 amp Dexamethasone Sodium Phosphate (Decadron Injection -) 4 mg IVPUSH TID [facility] Enoxaparin Sodium (Lovenox -) 60 mg SQ BID [facility] Last Admin: 02/10/18 21:48 Dose: 60 mg Fentanyl (Duragesic 25mcg Patch -) 1 patch TD Q72H [facility] Stop: 02/16/18 11:52 Last Admin: 02/09/18 12:41 Dose: 1 patch Guaifenesin/Codeine Phosphate (Robitussin Ac -) 5 ml PO Q8H PRN PRN Reason: COUGH Hydromorphone HCl (Dilaudid Vial -) 1 mg IVPB Q3H PRN PRN Reason: PAIN LEVEL 6-10 Last Admin: 02/10/18 20:18 Dose: 1 mg Hydromorphone HCl (Dilaudid Vial -) 0.5 mg IVPB Q3H PRN PRN Reason: PAIN LEVEL 1-5 Last Admin: 02/11/18 06:24 Dose: 0.5 mg Fat Emulsion Intravenous (Intralipid -) 250 mls @ 20.833 mls/hr IV DAILY@2200 [facility] Last Admin: 02/10/18 21:41 Dose: 20.833 mls/hr Fluconazole (Diflucan 100 Mg/Ns Premixed Ivpb -) 50 mls @ 50 mls/hr IVPB DAILY [facility] Last Admin: 02/10/18 10:41 Dose: 50 mls/hr Potassium Chloride 40 meq/Potassium Phosphate 15 mm/Sodium Chloride 150 meq/ Calcium Gluconate 2,000 mg/Magnesium Sulfate 1.47 gm/Thiamine HCl 100 mg/ Multivitamins/Minerals 10 ml/Folic Acid 1 mg/ Sterile Water / Amino Acids/ Dextrose 1,500 mls @ 62.5 mls/hr IVPB DAILY@1600 [facility] Last Admin: 02/10/18 17:12 Dose: 62.5 mls/hr Lorazepam (Ativan Injection -) 0.5 mg IVPUSH Q4H PRN PRN Reason: NAUSEA AND/OR VOMITING Methyl Salicylate (Nehemiah-Caceres -) 1 applic TP BID [facility] Last Admin: 02/10/18 21:14 Dose: Not Given Miscellaneous (Duragesic Patch Waste) 1 each MC PRN PRN PRN Reason: PAIN Pantoprazole Sodium (Protonix Iv) 40 mg IVPB DAILY [facility] Last Admin: 02/10/18 10:41 Dose: 40 mg Polyethylene Glycol (Miralax (For Daily Use) -) 17 gm PO DAILY [facility] Last Admin: 02/10/18 10:41 Dose: Not Given Scopolamine HBr (Transderm-Scop -) 1 patch TD Q3D@1000 [facility] Last Admin: 02/10/18 23:36 Dose: 1 patch - Objective Vital Signs: Vital Signs Temperature 98.2 F 02/11/18 06:00 Pulse Rate 106 H 02/11/18 06:00 Respiratory Rate 20 02/11/18 06:00 Blood Pressure 141/88 02/11/18 06:00 O2 Sat by Pulse Oximetry (%) 96 02/10/18 21:00 Constitutional: Yes: No Distress, Calm Cardiovascular: Yes: Regular Rate and Rhythm Respiratory: Yes: Rhonchi Gastrointestinal: Yes: Soft (nontender) Edema: No Labs: CBC, BMP 02/09/18 05:30 02/11/18 05:30 INR, PTT INR 1.24 (0.83-1.09) H 02/07/18 05:40 Fibrinogen 366.0 mg/dL (238-498) 02/07/18 05:40 - ....Imaging EKG: Image Reviewed Assessment/Plan IMP: Metastatic endometrial cancer Intractable nausea, chronic pain- malignancy related Prolonged QTc in setting of opiates and Zofran now resolved. Prior DVT Stable trivial pericardial effusion REC: 1. Comfort measures 2. QTc normalized with repletion of electrolytes and adjustment of medications 3. Cont Lovenox Remains hemodynamically stable without arrhythmias. Goals of care being discussed.
--- NOTE | 2018-02-11 08:53 | PN ---
Progress Note (short form) - Note Progress Note: Agitated overnight requiring doses of Ativan. Scopolamine patch added for secretions. Now sedated. Upper airway secretions audible. Remains on TPN. (BUN increasing due to AA in TPN) Intake & Output 02/08/18 02/09/18 02/10/18 02/11/18 23:59 23:59 23:59 23:59 Intake Total 942 2584 1283.3 1050 Balance 942 2584 1283.3 1050 Last Vital Signs Temp Pulse Resp BP Pulse Ox 98.2 F 106 H 20 141/88 96 02/11/18 06:00 02/11/18 06:00 02/11/18 06:00 02/11/18 06:00 02/10/18 21:00 Active Medications Acetaminophen (Tylenol -) 650 mg PO Q6H PRN PRN Reason: PAIN OR FEVER Albuterol Sulfate (Ventolin 0.083% Nebulizer Soln -) 1 amp NEB Q4H PRN PRN Reason: SHORTNESS OF BREATH Last Admin: 02/11/18 07:59 Dose: 1 amp Dexamethasone Sodium Phosphate (Decadron Injection -) 4 mg IVPUSH TID [facility] Enoxaparin Sodium (Lovenox -) 60 mg SQ BID [facility] Last Admin: 02/10/18 21:48 Dose: 60 mg Fentanyl (Duragesic 25mcg Patch -) 1 patch TD Q72H [facility] Stop: 02/16/18 11:52 Last Admin: 02/09/18 12:41 Dose: 1 patch Guaifenesin/Codeine Phosphate (Robitussin Ac -) 5 ml PO Q8H PRN PRN Reason: COUGH Hydromorphone HCl (Dilaudid Vial -) 1 mg IVPB Q3H PRN PRN Reason: PAIN LEVEL 6-10 Last Admin: 02/10/18 20:18 Dose: 1 mg Hydromorphone HCl (Dilaudid Vial -) 0.5 mg IVPB Q3H PRN PRN Reason: PAIN LEVEL 1-5 Last Admin: 02/11/18 06:24 Dose: 0.5 mg Fat Emulsion Intravenous (Intralipid -) 250 mls @ 20.833 mls/hr IV DAILY@2200 [facility] Last Admin: 02/10/18 21:41 Dose: 20.833 mls/hr Fluconazole (Diflucan 100 Mg/Ns Premixed Ivpb -) 50 mls @ 50 mls/hr IVPB DAILY [facility] Last Admin: 02/10/18 10:41 Dose: 50 mls/hr Potassium Chloride 40 meq/Potassium Phosphate 15 mm/Sodium Chloride 150 meq/ Calcium Gluconate 2,000 mg/Magnesium Sulfate 1.47 gm/Thiamine HCl 100 mg/ Multivitamins/Minerals 10 ml/Folic Acid 1 mg/ Sterile Water / Amino Acids/ Dextrose 1,500 mls @ 62.5 mls/hr IVPB DAILY@1600 [facility] Last Admin: 02/10/18 17:12 Dose: 62.5 mls/hr Lorazepam (Ativan Injection -) 0.5 mg IVPUSH Q4H PRN PRN Reason: NAUSEA AND/OR VOMITING Methyl Salicylate (Nehemiah-Caceres -) 1 applic TP BID [facility] Last Admin: 02/10/18 21:14 Dose: Not Given Miscellaneous (Duragesic Patch Waste) 1 each [facility] PRN PRN PRN Reason: PAIN Pantoprazole Sodium (Protonix Iv) 40 mg IVPB DAILY [facility] Last Admin: 02/10/18 10:41 Dose: 40 mg Polyethylene Glycol (Miralax (For Daily Use) -) 17 gm PO DAILY [facility] Last Admin: 02/10/18 10:41 Dose: Not Given Scopolamine HBr (Transderm-Scop -) 1 patch TD Q3D@1000 [facility] Last Admin: 02/10/18 23:36 Dose: 1 patch Constitutional: Yes: Sedated, intermittent upper airway stridor HENT: Yes: (?) Thrush Cardiovascular: Yes: Regular Rate and Rhythm, S1, S2 Respiratory: Yes: Diminished, rhonchi Gastrointestinal: Yes: Normal Bowel Sounds, Soft Edema: No Neurological: Yes: lethargic, non-focal Labs: Laboratory Results - last 24 hr 02/10/18 02/11/18 11:14 05:30 Sodium 134 L Potassium 4.2 Chloride 96 L Carbon Dioxide 28 Anion Gap 10 BUN 23 H Creatinine 0.6 Creat Clearance w eGFR > 60 POC Glucometer 156 Random Glucose 131 H Calcium 9.7 Phosphorus 2.5 Magnesium 2.4 Total Bilirubin 0.8 AST 88 H ALT 111 H Alkaline Phosphatase 65 Total Protein 7.4 Albumin 3.3 L Problem List - Problems (1) Cancer associated pain Assessment/Plan: Code(s): Saadia89.3 - NEOPLASM RELATED PAIN (ACUTE) (CHRONIC) (2) Endometrial malignant neoplasm Assessment/Plan: Code(s): C54.1 - MALIGNANT NEOPLASM OF ENDOMETRIUM (3) Decreased appetite Assessment/Plan: Code(s): R63.0 - ANOREXIA (4) Prolonged QT interval Assessment/Plan: Code(s): R94.31 - ABNORMAL ELECTROCARDIOGRAM [ECG] [EKG] (5) Thrush, oral Assessment/Plan: Code(s): B37.0 - CANDIDAL STOMATITIS (6) Hypokalemia Assessment/Plan: Code(s): E87.6 - HYPOKALEMIA PLAN: TPN adjusted (may need to reduce AA but will leave same % today and D/W Nutrition) NPO due to aspiration Diflucan Lovenox 60mg BID O2 as needed Ativan PRN for nausea / agitation Reduce Decadron Cardiac Telemetry monitoring DNR/DNI Plan for family meeting with P Care again tomorrow to further discuss GOC ( Considering inpatient Hospice care) Dr Rea Problem List - Problems (1) Cancer associated pain Code(s): G89.3 - NEOPLASM RELATED PAIN (ACUTE) (CHRONIC) (2) Pericardial effusion Code(s): I31.3 - PERICARDIAL EFFUSION (NONINFLAMMATORY) (3) Endometrial malignant neoplasm Code(s): C54.1 - MALIGNANT NEOPLASM OF ENDOMETRIUM (4) Lung metastases Code(s): C78.00 - SECONDARY MALIGNANT NEOPLASM OF UNSPECIFIED LUNG (5) Tachycardia Code(s): R00.0 - TACHYCARDIA, UNSPECIFIED
[2018-02-11] MEDS ORDERED: PT OWN MED DRAWER 7, Y5N ONE (09:24)
[2018-02-11] MEDS: FLUCONAZOLE 100 MG/NS 50 ML IVPB SCH (09:26)
[2018-02-11] MEDS: PANTOPRAZOLE SODIUM 40 MG VIAL IVPB SCH (09:26)
[2018-02-11] MEDS: ENOXAPARIN NA (PORCINE) 60 MG/0.6 ML DISP.SYRIN SQ SCH ×2 (09:34→22:55)
[2018-02-11] MEDS: POLYETHYLENE GLYCOL 3350 119 GM BTL PO SCH (09:37)
--- NOTE | 2018-02-11 09:50 | EKG ---
Test Reason : Blood Pressure : / mmHG Vent. Rate : 117 BPM Atrial Rate : 117 BPM P-R Int : 166 ms QRS Dur : 080 ms QT Int : 344 ms P-R-T Axes : 037 -19 088 degrees QTc Int : 479 ms SINUS TACHYCARDIA POSSIBLE LEFT ATRIAL ENLARGEMENT LEFT VENTRICULAR HYPERTROPHY NONSPECIFIC T WAVE ABNORMALITY ABNORMAL ECG WHEN COMPARED WITH ECG OF 10-FEB-2018 10:24, INVERTED T WAVES HAVE REPLACED NONSPECIFIC T WAVE ABNORMALITY IN ANTERIOR LEADS Confirmed by RONALD DURAN MD ([id number]) on 02/11/2018 9:49:51 AM Referred By: Uvaldo DALTON Confirmed By:RONALD DURAN MD
[2018-02-11] MEDS: METHYL SALICYLATE/MENTHOL OINT 30 GM TUBE TP SCH ×2 (10:00→22:45)
--- NOTE | 2018-02-11 10:16 | PN ---
Progress Note, Physician Chief Complaint: ASLEEP ON 02NC 4L EVENTS AND NOTES REVIEWED - Current Medication List Current Medications: Active Medications Acetaminophen (Tylenol -) 650 mg PO Q6H PRN PRN Reason: PAIN OR FEVER Albuterol Sulfate (Ventolin 0.083% Nebulizer Soln -) 1 amp NEB Q4H PRN PRN Reason: SHORTNESS OF BREATH Last Admin: 02/11/18 07:59 Dose: 1 amp Dexamethasone Sodium Phosphate (Decadron Injection -) 4 mg IVPUSH TID [facility] Enoxaparin Sodium (Lovenox -) 60 mg SQ BID [facility] Last Admin: 02/11/18 09:34 Dose: 60 mg Fentanyl (Duragesic 25mcg Patch -) 1 patch TD Q72H [facility] Stop: 02/16/18 11:52 Last Admin: 02/09/18 12:41 Dose: 1 patch Guaifenesin/Codeine Phosphate (Robitussin Ac -) 5 ml PO Q8H PRN PRN Reason: COUGH Hydromorphone HCl (Dilaudid Vial -) 1 mg IVPB Q3H PRN PRN Reason: PAIN LEVEL 6-10 Last Admin: 02/10/18 20:18 Dose: 1 mg Hydromorphone HCl (Dilaudid Vial -) 0.5 mg IVPB Q3H PRN PRN Reason: PAIN LEVEL 1-5 Last Admin: 02/11/18 06:24 Dose: 0.5 mg Fat Emulsion Intravenous (Intralipid -) 250 mls @ 20.833 mls/hr IV DAILY@2200 [facility] Last Admin: 02/10/18 21:41 Dose: 20.833 mls/hr Fluconazole (Diflucan 100 Mg/Ns Premixed Ivpb -) 50 mls @ 50 mls/hr IVPB DAILY [facility] Last Admin: 02/11/18 09:26 Dose: 50 mls/hr Potassium Chloride 40 meq/Potassium Phosphate 15 mm/Sodium Chloride 150 meq/ Calcium Gluconate 2,000 mg/Magnesium Sulfate 1.47 gm/Thiamine HCl 100 mg/ Multivitamins/Minerals 10 ml/Folic Acid 1 mg/ Sterile Water / Amino Acids/ Dextrose 1,500 mls @ 62.5 mls/hr IVPB DAILY@1600 [facility] Last Admin: 02/10/18 17:12 Dose: 62.5 mls/hr Lorazepam (Ativan Injection -) 0.5 mg IVPUSH Q4H PRN PRN Reason: NAUSEA AND/OR VOMITING Methyl Salicylate (Nehemiah-Caceres -) 1 applic TP BID [facility] Last Admin: 02/10/18 21:14 Dose: Not Given Miscellaneous (Duragesic Patch Waste) 1 each MC PRN PRN PRN Reason: PAIN Pantoprazole Sodium (Protonix Iv) 40 mg IVPB DAILY [facility] Last Admin: 02/11/18 09:26 Dose: 40 mg Polyethylene Glycol (Miralax (For Daily Use) -) 17 gm PO DAILY [facility] Last Admin: 02/11/18 09:37 Dose: Not Given Scopolamine HBr (Transderm-Scop -) 1 patch TD Q3D@1000 [facility] Last Admin: 02/10/18 23:36 Dose: 1 patch - Objective Vital Signs: Vital Signs Temperature 98.2 F 02/11/18 06:00 Pulse Rate 106 H 02/11/18 06:00 Respiratory Rate 20 02/11/18 06:00 Blood Pressure 141/88 02/11/18 06:00 O2 Sat by Pulse Oximetry (%) 96 02/10/18 21:00 Constitutional: Yes: Moderate Distress Eyes: Yes: WNL HENT: Yes: WNL Neck: Yes: WNL Cardiovascular: Yes: Regular Rate and Rhythm Respiratory: Yes: Diminished, On Nasal O2, Rhonchi Gastrointestinal: Yes: Soft Genitourinary: Yes: Incontinence Musculoskeletal: Yes: Back Pain, Muscle Pain Extremities: Yes: WNL Psychiatric: Yes: Alert Labs: CBC, BMP 02/09/18 05:30 02/11/18 05:30 INR, PTT INR 1.24 (0.83-1.09) H 02/07/18 05:40 Fibrinogen 366.0 mg/dL (238-498) 02/07/18 05:40 Problem List - Problems (1) Failure to thrive Code(s): [id number] - (2) Decreased appetite Code(s): R63.0 - ANOREXIA (3) Prolonged QT interval Code(s): R94.31 - ABNORMAL ELECTROCARDIOGRAM [ECG] [EKG] (4) Cancer associated pain Code(s): G89.3 - NEOPLASM RELATED PAIN (ACUTE) (CHRONIC) (5) Pneumonia Code(s): J18.9 - PNEUMONIA, UNSPECIFIED ORGANISM (6) Endometrial malignant neoplasm Code(s): C54.1 - MALIGNANT NEOPLASM OF ENDOMETRIUM (7) Lung metastases Code(s): C78.00 - SECONDARY MALIGNANT NEOPLASM OF UNSPECIFIED LUNG (8) Tachycardia Code(s): R00.0 - TACHYCARDIA, UNSPECIFIED (9) Thrush, oral Code(s): B37.0 - CANDIDAL STOMATITIS Assessment/Plan GOALS OF CARE ARE BEING DISCUSSED PATIENT WITH ENDOMETRIAL MALIGNANCY ON PAIN CONTROL DILAUDID/DURAGESIC PATCH AND ATIVAN PRN. 02 SUPPORT AGREE WITH SCOPALAMINE PATCH NUTRITION TOLERATED ON DIFLUCAN FOR THRUSH
--- NOTE | 2018-02-11 13:11 | PN ---
Progress Note, ROOM SERVICE RUNNER - Note Progress Note: Increased respiratory effort/stridor respirations by pt / decreased O2 saturation to 90%. P Inspiratory wheeze. Suctioned thick phlegm from posterior pharynx. Family present.t to be placed on 4L N/C humidified O2. Scopolamine patch ordered
--- NOTE | 2018-02-11 13:37 | PN ---
Progress Note (short form) - Note Progress Note: Patient seen and examined at bed side Family at bed side Receiving ativan and diludid and today sleeping godd deal of day Last Vital Signs Temp Pulse Resp BP Pulse Ox 98.4 F 122 H 24 H 145/90 96 02/11/18 10:00 02/11/18 10:00 02/11/18 10:00 02/11/18 10:00 02/10/18 21:00 Lungs -rhonchi Upper airway sounds Cor -RSR Abd no organomegaly CBC, BMP 02/09/18 05:30 02/11/18 05:30 Current Medications Generic Name Dose Route Start Last Admin Trade Name Freq PRN Reason Stop Dose Admin Acetaminophen 650 mg 02/04/18 15:55 Tylenol - PO Q6H PRN PAIN OR FEVER Albuterol Sulfate 1 amp 02/09/18 13:47 02/11/18 07:59 Ventolin 0.083% Nebulizer Soln - NEB 1 amp Q4H PRN Administration SHORTNESS OF BREATH Dexamethasone Sodium Phosphate 4 mg 02/11/18 08:46 Decadron Injection - IVPUSH TID [facility] Enoxaparin Sodium 60 mg 02/04/18 22:00 02/11/18 09:34 Lovenox - SQ 60 mg BID [facility] Administration Fentanyl 1 patch 02/09/18 12:00 02/09/18 12:41 Duragesic 25mcg Patch - TD 02/16/18 11:52 1 patch Q72H [facility] Administration Guaifenesin/Codeine Phosphate 5 ml 02/04/18 18:58 Robitussin Ac - PO Q8H PRN COUGH Hydromorphone HCl 1 mg 02/09/18 13:54 02/10/18 20:18 Dilaudid Vial - IVPB 1 mg Q3H PRN Administration PAIN LEVEL 6-10 Hydromorphone HCl 0.5 mg 02/10/18 17:01 02/11/18 06:24 Dilaudid Vial - IVPB 0.5 mg Q3H PRN Administration PAIN LEVEL 1-5 Fat Emulsion Intravenous 250 mls @ 20.833 mls/hr 02/07/18 22:00 02/10/18 21: 41 Intralipid - IV 20.833 mls/hr DAILY@2200 [facility] Administration Fluconazole 50 mls @ 50 mls/hr 02/08/18 15:00 02/11/18 09:26 Diflucan 100 Mg/Ns Premixed Ivpb - IVPB 50 mls/hr DAILY [facility] Administration Potassium Chloride 40 meq/ 1,500 mls @ 62.5 mls/hr 02/09/18 16:00 02/10/18 17 :12 Potassium Phosphate 15 mm/ IVPB 02/11/18 15:59 62.5 mls/hr Sodium Chloride 150 meq/ DAILY@1600 [facility] Administration Calcium Gluconate 2,000 mg/ Magnesium Sulfate 1.47 gm/ Thiamine HCl 100 mg/ Multivitamins/Minerals 10 ml/ Folic Acid 1 mg/ Sterile Water / Amino Acids/ Dextrose Potassium Chloride 30 meq/ 1,500 mls @ 62.5 mls/hr 02/11/18 16:00 Potassium Phosphate 15 mm/ IVPB Sodium Chloride 150 meq/ DAILY@1600 [facility] Magnesium Sulfate 0.98 gm/ Thiamine HCl 100 mg/ Multivitamins/Minerals 10 ml/ Folic Acid 1 mg/ Sterile Water / Amino Acids/ Dextrose Lorazepam 0.5 mg 02/10/18 18:35 Ativan Injection - IVPUSH Q4H PRN NAUSEA AND/OR VOMITING Methyl Salicylate 1 applic 02/04/18 16:45 02/10/18 21:14 Nehemiah-Caceres - TP Not Given BID [facility] Miscellaneous 1 each 02/09/18 11:52 Duragesic Patch Waste [facility] PRN PRN PAIN Pantoprazole Sodium 40 mg 02/04/18 17:00 02/11/18 09:26 Protonix Iv IVPB 40 mg DAILY [facility] Administration Polyethylene Glycol 17 gm 02/05/18 10:00 02/11/18 09:37 Miralax (For Daily Use) - PO Not Given DAILY [facility] Scopolamine HBr 1 patch 02/10/18 23:30 02/10/18 23:36 Transderm-Scop - TD 1 patch Q3D@1000 [facility] Administration Impression: Currently receiving prn ativan and dilaudid apparently today -less agitated day ? smoother transition and comfort with morphine drip Prior chart review suggests GOC -comfort measures. Problem List - Problems (1) Endometrial malignant neoplasm Code(s): C54.1 - MALIGNANT NEOPLASM OF ENDOMETRIUM
[2018-02-11] MEDS: HYDROmorphone HCl 2 MG/ML VIAL IVPB PRN ×2 (13:38→17:35)
[2018-02-11] MEDS ORDERED: POTASSIUM CHLORIDE IVPB SCH (16:00)
[2018-02-11] MEDS ORDERED: SODIUM CHLORIDE IVPB SCH (16:00)
[2018-02-11] MEDS ORDERED: POTASSIUM PHOSPHATE IVPB SCH (16:00)
[2018-02-11] MEDS ORDERED: [UNRECOGNIZED DRUG - OTHER] IVPB SCH (16:00)
[2018-02-11] MEDS ORDERED: HYDROmorphone HCl 2 MG/ML VIAL IVPB ONE (20:02)
[2018-02-11] MEDS ORDERED: LORazepam 2 MG/ML SDV VIAL IVPUSH PRN (20:03)
[2018-02-11] MEDS ORDERED: HYDROmorphone HCl 2 MG/ML VIAL IVPB PRN ×2 (20:03)
[2018-02-11] MEDS ORDERED: morphine SULFATE 4 MG/ML VIAL IVPUSH ONE (21:00)
[2018-02-11] MEDS ORDERED: MORPHINE 100 MG in SODIUM CHLORIDE 98 ML IVPB SCH (21:00)
[2018-02-11] MEDS: FAT EMULSIONS 250 ML IV SCH (22:00)
--- NOTE | 2018-02-12 00:12 | PN ---
Progress Note (short form) - Note Progress Note: Struggling. Agonal breathing with desaturation. Questionable TC seizure activity. Family at the bedside. They have instructed the staff to provide maximal comfort measures. O2 increased, pain meds given, and MS drip started per patient's previous and families current wishes. PLAN: Titrate meds for maximal pain relief and comfort & to keep RR < 20 per min. DNR / DNI Dr Rea Problem List - Problems (1) Cancer associated pain Code(s): G89.3 - NEOPLASM RELATED PAIN (ACUTE) (CHRONIC) (2) Pericardial effusion Code(s): I31.3 - PERICARDIAL EFFUSION (NONINFLAMMATORY) (3) Endometrial malignant neoplasm Code(s): C54.1 - MALIGNANT NEOPLASM OF ENDOMETRIUM (4) Lung metastases Code(s): C78.00 - SECONDARY MALIGNANT NEOPLASM OF UNSPECIFIED LUNG (5) Tachycardia Code(s): R00.0 - TACHYCARDIA, UNSPECIFIED
[2018-02-12] MEDS: MORPHINE 100 MG in SODIUM CHLORIDE 98 ML IVPB SCH ×2 (00:47→16:53)
[2018-02-12] MEDS: ALBUTEROL SO4 0.083% IH SOL 2.5 MG/3 ML VIAL.NEB. NEB PRN (07:41)
--- NOTE | 2018-02-12 09:30 | CON.CARD ---
Cardiology Consult (text) - Consultation Consultation Note: Seen and examined, events from overnight reviewed. Discussed w/ Dr. Rea and Sharan. Morphine gtts initiated for comfort. This is most compassionate approach as no further medical Rx options are available for her advanced cancer and she was suffering significantly.
--- NOTE | 2018-02-12 12:00 | PN ---
Progress Note, Physician Chief Complaint: AWAKE IN SEVERE DISTRESS ON 02 COLLAR FAMILY BEDSIDE - Current Medication List Current Medications: Active Medications Acetaminophen (Tylenol -) 650 mg PO Q6H PRN PRN Reason: PAIN OR FEVER Albuterol Sulfate (Ventolin 0.083% Nebulizer Soln -) 1 amp NEB Q4H PRN PRN Reason: SHORTNESS OF BREATH Last Admin: 02/12/18 07:41 Dose: 1 amp Fentanyl (Duragesic 25mcg Patch -) 1 patch TD Q72H [facility] Stop: 02/16/18 11:52 Last Admin: 02/09/18 12:41 Dose: 1 patch Hydromorphone HCl (Dilaudid Vial -) 2 mg IVPB Q3H PRN PRN Reason: PAIN LEVEL 6-10 Hydromorphone HCl (Dilaudid Vial -) 1 mg IVPB Q3H PRN PRN Reason: PAIN LEVEL 1-5 Morphine Sulfate 100 mg/ (Sodium Chloride) 100 mls @ 10 mls/hr IVPB TITR STEPHENIE; Protocol Last Admin: 02/12/18 00:47 Dose: 10 mg/hr, 10 mls/hr Lorazepam (Ativan Injection -) 1 mg IVPUSH Q3H PRN PRN Reason: NAUSEA AND/OR VOMITING Methylprednisolone Sodium Succinate (Solu-Medrol -) 80 mg IVPUSH DAILY [facility] Miscellaneous (Duragesic Patch Waste) 1 each MC PRN PRN PRN Reason: PAIN Scopolamine HBr (Transderm-Scop -) 1 patch TD Q3D@1000 STEPHENIE Last Admin: 02/10/18 23:36 Dose: 1 patch - Objective Vital Signs: Vital Signs Temperature 98.4 F 02/12/18 09:03 Pulse Rate 112 H 02/12/18 09:03 Respiratory Rate 18 02/12/18 09:03 Blood Pressure 145/90 02/12/18 09:03 O2 Sat by Pulse Oximetry (%) 95 02/12/18 07:52 Constitutional: Yes: Severe Distress Cardiovascular: Yes: Tachycardia Respiratory: Yes: Bradypnea, Other Integumentary: Yes: Other Neurological: Yes: Unresponsive Labs: CBC, BMP 02/09/18 05:30 02/11/18 05:30 INR, PTT INR 1.24 (0.83-1.09) H 02/07/18 05:40 Fibrinogen 366.0 mg/dL (238-498) 02/07/18 05:40 Problem List - Problems (1) Failure to thrive Code(s): [id number] - (2) Decreased appetite Code(s): R63.0 - ANOREXIA (3) Prolonged QT interval Code(s): R94.31 - ABNORMAL ELECTROCARDIOGRAM [ECG] [EKG] (4) Cancer associated pain Code(s): G89.3 - NEOPLASM RELATED PAIN (ACUTE) (CHRONIC) (5) Pneumonia Code(s): J18.9 - PNEUMONIA, UNSPECIFIED ORGANISM (6) Endometrial malignant neoplasm Code(s): C54.1 - MALIGNANT NEOPLASM OF ENDOMETRIUM (7) Lung metastases Code(s): C78.00 - SECONDARY MALIGNANT NEOPLASM OF UNSPECIFIED LUNG (8) Tachycardia Code(s): R00.0 - TACHYCARDIA, UNSPECIFIED (9) Thrush, oral Code(s): B37.0 - CANDIDAL STOMATITIS Assessment/Plan ON MORPHINE DRIP FOR TITRATION TO COMFORT SOLUMEDROL CONTINUED FOR HOSPICE PROTOCOL SCOPALAMINE PATCH FOR COMFORT OF MUCUS PALLIAITVE CARE WITH FAMILY, AVAILABLE FOR ANY QUESTIONS AND COMFORT
[2018-02-12] MEDS ORDERED: methylPREDNISolone NA SUCC 125 MG/2 ML VIAL IVPUSH SCH (12:15)
[2018-02-12] MEDS: fentaNYL 25mcg/hr PATCH.TD72 TD SCH (12:56)
[2018-02-12] MEDS ORDERED: PT OWN MED DRAWER 7, Y5N ONE (14:36)
[2018-02-12 20:05] VITALS: BP 139/61; PULSE 109; TEMP 99.1
--- NOTE | 2018-02-13 01:28 | HOSP ---
Physical Examination Vital Signs: Vital Signs Temperature 99.1 F 02/12/18 22:00 Pulse Rate 109 H 02/12/18 22:00 Respiratory Rate 20 02/12/18 22:00 Blood Pressure 139/61 02/12/18 22:00 O2 Sat by Pulse Oximetry (%) 96 02/12/18 21:00 Labs: CBC, BMP 02/09/18 05:30 02/11/18 05:30 Hospitalist Encounter Assessment: Called and informed that pt had gone into asystole on the hospital monitor. Pt known DNR/DNI on comfort measured confirmed. Exam Unresponsive to voice or painful stimuli Pupils fixed and dilated Heart and lung sounds absent after two minutes of auscultation Absent peripheral pulses Pt pronouced at 1:12 am. Nursing staff to notify family and primary provider. Visit type - Emergency Visit Emergency Visit: Yes ED Registration Date: 02/04/18 Care time: The patient presented to the Emergency Department on the above date and was hospitalized for further evaluation of their emergent condition. - New Patient This patient is new to me today: Yes Date on this admission: 02/16/18 - Critical Care Critical Care patient: No
== END 2018-02-13 01:12 | disposition expired | DRG 181 ==
LOC: JER 09:48 → JERBED 14:21 → J8W 16:52 → J4W 02-05 11:07 → JERBED 02-08 22:09 → J4W 02-08 22:12
PROVIDERS: ADMIT Family Medicine; ATTEND Family Medicine
PROC: 05HM33Z Insertion of Infusion Device into Right Internal Jugular Vein, Percutaneous Approach (ICD-10-PCS; principal; 2018-02-06)
PROC: B513ZZA Fluoroscopy of Right Jugular Veins, Guidance (ICD-10-PCS; 2018-02-06)
PROC: 3E0336Z Introduction of Nutritional Substance into Peripheral Vein, Percutaneous Approach (ICD-10-PCS; 2018-02-06)
DX: C78.02 Secondary malignant neoplasm of left lung (principal); C79.31 Secondary malignant neoplasm of brain; B37.0 Candidal stomatitis; R64 Cachexia; C79.2 Secondary malignant neoplasm of skin; C78.7 Secondary malignant neoplasm of liver and intrahepatic bile duct; G89.3 Neoplasm related pain (acute) (chronic); C78.01 Secondary malignant neoplasm of right lung; Z66 Do not resuscitate; R62.7 Adult failure to thrive; Z51.5 Encounter for palliative care; Z85.42 Personal history of malignant neoplasm of other parts of uterus; Z90.710 Acquired absence of both cervix and uterus; Z86.718 Personal history of other venous thrombosis and embolism; K21.9 Gastro-esophageal reflux disease without esophagitis; M85.80 Other specified disorders of bone density and structure, unspecified site; R63.0 Anorexia; Z68.26 Body mass index [BMI] 26.0-26.9, adult; Z86.711 Personal history of pulmonary embolism; R13.14 Dysphagia, pharyngoesophageal phase; E87.6 Hypokalemia; T45.0X5A Adverse effect of antiallergic and antiemetic drugs, initial encounter; T40.2X5A Adverse effect of other opioids, initial encounter; I45.81 Long QT syndrome; R51 Headache; R06.00 Dyspnea, unspecified; Z80.3 Family history of malignant neoplasm of breast; Z80.0 Family history of malignant neoplasm of digestive organs
CPT/HCPCS: 36415; 70450-TC; 71045-TC-FY; 71260-TC; 74177-TC; 74230-TC-FY; 80053; 81003; 82550; 82962; 83605; 83690; 83735; 84100; 84484; 85025; 85384; 85610; 85730; 92611-GN; 93005; 93010; 94640; 97116-GP; 97161-GP; 99284-25; J7030